=== PATIENT | male | born 1970 | race Caucasian/White ===

== ENCOUNTER 2019-05-26 16:26 | Emergency (ER) | payer BC, SELFPAY ==
[2019-05-26 16:34] VITALS: BP 148/98; PULSE 89; RESP 14; TEMP 36.7; O2SAT 97; BMI 37.4
--- NOTE | 2019-05-26 17:04 | XR_ITS ---
WS: [id number] PORTABLE CHEST HISTORY: cough and sob COMPARISON: 11/14/2013 Mild emphysema. There is mild thickening of the interstitium throughout the LEFT lung. New since the prior study. No pleural effusion or pneumothorax. Cardiac size: Normal. Mediastinum/Aorta: Normal mediastinum. No osseous abnormality seen. XR/XR chest 1V portable [id number] IMPRESSION: Mild pneumonitis LEFT lung superimposed on emphysema.
--- NOTE | 2019-05-26 17:08 | ED_ITS ---
Documented by User: Leonardo Bates DO 05/26/19 17:14 HPI - SOB/Dyspnea General: Chief Complaint: Shortness of Breath/Dyspnea Stated Complaint: SOB/COUGH Time Seen by Provider: 05/26/19 16:56 History of Present Illness: HPI Narrative: Patient complains of shortness of breath with a cough that is productive of sputum. He also complains of burning type chest pain along with the cough. She complains of sore throat. He denies any fever. 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 MD elicited complaint: shortness of breath, cough, pain with inspiration and chest pain Pertinent past history: diabetes Onset (ago): hour(s) Timing: constant Severity: severe Exacerbating factors: movement, coughing and inspiration Relieving factors: nothing Known history of: diabetes Associated symptoms: Reports cough, myalgias, nausea and other (dysuria) Treatment prior to arrival: none Review of Systems General: Reports: 10 or more systems reviewed and unremarkable except in HPI and below Const: Reports: body aches, fatigue and malaise ENMT: Reports: throat pain Resp: Reports: shortness of breath, productive cough and pain on inspiration GI: Reports: nausea : Reports: painful urination PFS ED PFSH: Social History Smoking and tobacco status: current every day smoker Physical Exam Const: COMMON NORMALS: oriented x3 and alert GENERAL APPEARANCE: cooperative and well developed HENMT: COMMON NORMALS: normocephalic and head/scalp atraumatic HEAD & SCALP: normocephalic and atraumatic Neck/C-Spine: COMMON NORMALS: full ROM, no lymphadenopathy, supple, no meningeal signs and no JVD Resp: COMMON NORMALS: normal respiratory effort, no retractions, no use of accessory muscles and clear to auscultation bilaterally EFFORT & INSPECTION: Yes able to speak in complete sentences AUSCULTATION: clear to auscultation bilaterally Cardio: COMMON NORMALS: no JVD, regular rate and regular rhythm RATE: regular rate RHYTHM: regular rhythm GI: COMMON NORMALS: normal to inspection, nondistended, normoactive bowel sounds Extremity: COMMON NORMALS: normal to inspection, full ROM, normal capillary refill and no pedal edema Neuro: COMMON NORMALS: oriented x3 SENSORIUM/ORIENTATION: Yes alert MENINGEAL SIGNS: Yes no meningeal signs Skin: COMMON NORMALS: no rashes or lesions noted, skin turgor normal, no jaundice and no mottling GENERAL SKIN EXAM: no rashes or lesions noted and turgor normal Course Vital Signs: Vital signs: Vital Signs Temperature 98.1 F 05/26/19 16:34 Pulse Rate 89 05/26/19 16:34 Respiratory Rate 14 05/26/19 16:34 Blood Pressure 148/98 05/26/19 16:34 Pulse Oximetry 97 05/26/19 16:34 MDM - SOB/Dyspnea Lab Data: Labs: Lab Results 05/26/19 05/26/19 05/26/19 Range/Units 17:07 17:20 17:20 WBC 9.6 (4.0-10.0) 10^3/ uL RBC 5.24 (4.1-5.3) 10^6/u L Hgb 16.1 (11.7-16.6) g/dL Hct 49.6 (42.0-52.0) % MCV 94.7 H (80-94) fL MCH 30.7 (28.0-34.0) pg MCHC 32.5 (30.0-36.0) g/dL RDW 12.6 (12.1-15.1) % Plt Count 202 (130-400) 10^3/c mm MPV 11.3 H (7.4-10.4) fL Neut % (Auto) 51.1 % Lymph % (Auto) 35.8 % [place] % (Auto) 7.9 % Eos % (Auto) 4.2 % Baso % (Auto) 0.6 % Neut # (Auto) 4.9 (1.8-7.7) 10^3/u L Lymph # (Auto) 3.5 (0.8-4.8) 10^3/u L [place] # (Auto) 0.8 (0.2-0.9) 10^3/u L Eos # (Auto) 0.4 (0.0-0.8) 10^3/u L Baso # (Auto) 0.1 (0.0-0.1) 10^3/u L Nucleated RBC % (a uto) 0 % Nucleated RBCs # 0.0 /100WBC Sodium 134 L (136-145) mmol/L Potassium 3.8 (3.5-5.1) mmol/L Chloride 98 (98-107) mmol/L Carbon Dioxide 24 (22-29) mmol/L Anion Gap 15.8 (5-19) BUN 6 (6-20) mg/dL Creatinine 0.7 (0.7-1.2) mg/dL GFR Calculation 119.9 (90-130) mL/min Glucose 155 H (65-115) mg/dL Calculated Osmolal ity 277 L (285-295) mOsm/k g Calcium 9.4 (8.5-10.5) mg/dL Total Bilirubin 0.5 (0.15-1.2) mg/dL AST 86 H (0-40) U/L ALT 62 H (0-41) U/L Alkaline Phosphata se 126 (40-130) IU/L Total Protein 7.8 (6.6-8.7) g/dL Albumin 4.0 (3.5-5.2) g/dL Globulin 3.8 (1.3-4.6) g/dL Urine Color Yellow (Yellow) Urine Appearance Clear (CLEAR) Urine pH 5 (5-7) Ur Specific Gravit y 1.010 (1.005-1.030) Urine Protein Neg (Negative) Urine Glucose (UA) Norm (Normal) Urine Ketones Negative (Negative) Urine Blood Neg (Negative) Urine Nitrate Negative (Negative) Urine Bilirubin Neg (NEGATIVE) Urine Urobilinogen Norm (Negative) mg/dL Ur Leukocyte Selin ase Negative (Negative) Influenza Type A A g (Negative) Influenza Type B A g (Negative) 05/26/19 Range/Units 18:27 WBC (4.0-10.0) 10^3/ uL RBC (4.1-5.3) 10^6/u L Hgb (11.7-16.6) g/dL Hct (42.0-52.0) % MCV (80-94) fL MCH (28.0-34.0) pg MCHC (30.0-36.0) g/dL RDW (12.1-15.1) % Plt Count (130-400) 10^3/c mm MPV (7.4-10.4) fL Neut % (Auto) % Lymph % (Auto) % [place] % (Auto) % Eos % (Auto) % Baso % (Auto) % Neut # (Auto) (1.8-7.7) 10^3/u L Lymph # (Auto) (0.8-4.8) 10^3/u L [place] # (Auto) (0.2-0.9) 10^3/u L Eos # (Auto) (0.0-0.8) 10^3/u L Baso # (Auto) (0.0-0.1) 10^3/u L Nucleated RBC % (a uto) % Nucleated RBCs # /100WBC Sodium (136-145) mmol/L Potassium (3.5-5.1) mmol/L Chloride (98-107) mmol/L Carbon Dioxide (22-29) mmol/L Anion Gap (5-19) BUN (6-20) mg/dL Creatinine (0.7-1.2) mg/dL GFR Calculation (90-130) mL/min Glucose (65-115) mg/dL Calculated Osmolal ity (285-295) mOsm/k g Calcium (8.5-10.5) mg/dL Total Bilirubin (0.15-1.2) mg/dL AST (0-40) U/L ALT (0-41) U/L Alkaline Phosphata se (40-130) IU/L Total Protein (6.6-8.7) g/dL Albumin (3.5-5.2) g/dL Globulin (1.3-4.6) g/dL Urine Color (Yellow) Urine Appearance (CLEAR) Urine pH (5-7) Ur Specific Gravit y (1.005-1.030) Urine Protein (Negative) Urine Glucose (UA) (Normal) Urine Ketones (Negative) Urine Blood (Negative) Urine Nitrate (Negative) Urine Bilirubin (NEGATIVE) Urine Urobilinogen (Negative) mg/dL Ur Leukocyte Selin ase (Negative) Influenza Type A A g Negative (Negative) Influenza Type B A g Negative (Negative) Discharge Plan Discharge Patient Disposition: Home, Self-Care Clinical Impression: Bronchitis Condition: Stable Prescriptions: New doxycycline hyclate 100 mg capsule 100 mg PO BID 7 Days Qty: 14 RF: 0 prednisone 50 mg tablet 50 mg PO DAILY Qty: 5 RF: 0 No Action metformin 1,000 mg tablet 2,000 mg PO BID RF: 0 Claritin 10 mg tablet 10 mg PO DAILY RF: 0 amoxicillin-pot clavulanate 875-125 mg tablet 1 tab PO DAILY RF: 0 Protonix See Rx Instructions .ROUTE .COMPLEX RF: 0 Zyrtec See Rx Instructions .ROUTE .COMPLEX RF: 0 lisinopril See Rx Instructions .ROUTE .COMPLEX RF: 0 testosterone undecanoate See Rx Instructions .ROUTE .COMPLEX RF: 0 Discharge Orders: Discharge Order (Routine); Ordered 05/26/19 Ordered By: Cathryn Lucia Referrals: Amari Rosales MD [Primary Care Provider] - 4-7 days Discharge Diet: Advance as tolerated Discharge Activity: Resume usual activity Patient Instructions: Acute Bronchitis (ED) Stand Alone Forms: Work/School Release Coding Level of Care Code 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 Documented by User: Cathryn Lucia MD 05/26/19 19:52 HPI - SOB/Dyspnea General: Chief Complaint: Shortness of Breath/Dyspnea Stated Complaint: SOB/COUGH Time Seen by Provider: 05/26/19 16:56 PFSH ED PFSH: Social History Smoking and tobacco status: current every day smoker Course Vital Signs: Vital signs: Vital Signs Temperature 98.1 F 05/26/19 16:34 Pulse Rate 89 05/26/19 16:34 Respiratory Rate 14 05/26/19 16:34 Blood Pressure 148/98 05/26/19 16:34 Pulse Oximetry 97 05/26/19 16:34 MDM - SOB/Dyspnea MDM Narrative: Medical decision making narrative: Lionel presents here with cough and congestion likely bronchitis. Patient has no signs of large pneumonia. Will test for coronavirus and he is to self quarantine. Will place on doxycycline. Patient is to return if worsening. He understands and agrees the plan. He is on no distress here. Lab Data: Labs: Lab Results 05/26/19 05/26/19 05/26/19 Range/Units 17:07 17:20 17:20 WBC 9.6 (4.0-10.0) 10^3/ uL RBC 5.24 (4.1-5.3) 10^6/u L Hgb 16.1 (11.7-16.6) g/dL Hct 49.6 (42.0-52.0) % MCV 94.7 H (80-94) fL MCH 30.7 (28.0-34.0) pg MCHC 32.5 (30.0-36.0) g/dL RDW 12.6 (12.1-15.1) % Plt Count 202 (130-400) 10^3/c mm MPV 11.3 H (7.4-10.4) fL Neut % (Auto) 51.1 % Lymph % (Auto) 35.8 % [place] % (Auto) 7.9 % Eos % (Auto) 4.2 % Baso % (Auto) 0.6 % Neut # (Auto) 4.9 (1.8-7.7) 10^3/u L Lymph # (Auto) 3.5 (0.8-4.8) 10^3/u L [place] # (Auto) 0.8 (0.2-0.9) 10^3/u L Eos # (Auto) 0.4 (0.0-0.8) 10^3/u L Baso # (Auto) 0.1 (0.0-0.1) 10^3/u L Nucleated RBC % (a uto) 0 % Nucleated RBCs # 0.0 /100WBC Sodium 134 L (136-145) mmol/L Potassium 3.8 (3.5-5.1) mmol/L Chloride 98 (98-107) mmol/L Carbon Dioxide 24 (22-29) mmol/L Anion Gap 15.8 (5-19) BUN 6 (6-20) mg/dL Creatinine 0.7 (0.7-1.2) mg/dL GFR Calculation 119.9 (90-130) mL/min Glucose 155 H (65-115) mg/dL Calculated Osmolal ity 277 L (285-295) mOsm/k g Calcium 9.4 (8.5-10.5) mg/dL Total Bilirubin 0.5 (0.15-1.2) mg/dL AST 86 H (0-40) U/L ALT 62 H (0-41) U/L Alkaline Phosphata se 126 (40-130) IU/L Total Protein 7.8 (6.6-8.7) g/dL Albumin 4.0 (3.5-5.2) g/dL Globulin 3.8 (1.3-4.6) g/dL Urine Color Yellow (Yellow) Urine Appearance Clear (CLEAR) Urine pH 5 (5-7) Ur Specific Gravit y 1.010 (1.005-1.030) Urine Protein Neg (Negative) Urine Glucose (UA) Norm (Normal) Urine Ketones Negative (Negative) Urine Blood Neg (Negative) Urine Nitrate Negative (Negative) Urine Bilirubin Neg (NEGATIVE) Urine Urobilinogen Norm (Negative) mg/dL Ur Leukocyte Selin ase Negative (Negative) Influenza Type A A g (Negative) Influenza Type B A g (Negative) 05/26/19 Range/Units 18:27 WBC (4.0-10.0) 10^3/ uL RBC (4.1-5.3) 10^6/u L Hgb (11.7-16.6) g/dL Hct (42.0-52.0) % MCV (80-94) fL MCH (28.0-34.0) pg MCHC (30.0-36.0) g/dL RDW (12.1-15.1) % Plt Count (130-400) 10^3/c mm MPV (7.4-10.4) fL Neut % (Auto) % Lymph % (Auto) % [place] % (Auto) % Eos % (Auto) % Baso % (Auto) % Neut # (Auto) (1.8-7.7) 10^3/u L Lymph # (Auto) (0.8-4.8) 10^3/u L [place] # (Auto) (0.2-0.9) 10^3/u L Eos # (Auto) (0.0-0.8) 10^3/u L Baso # (Auto) (0.0-0.1) 10^3/u L Nucleated RBC % (a uto) % Nucleated RBCs # /100WBC Sodium (136-145) mmol/L Potassium (3.5-5.1) mmol/L Chloride (98-107) mmol/L Carbon Dioxide (22-29) mmol/L Anion Gap (5-19) BUN (6-20) mg/dL Creatinine (0.7-1.2) mg/dL GFR Calculation (90-130) mL/min Glucose (65-115) mg/dL Calculated Osmolal ity (285-295) mOsm/k g Calcium (8.5-10.5) mg/dL Total Bilirubin (0.15-1.2) mg/dL AST (0-40) U/L ALT (0-41) U/L Alkaline Phosphata se (40-130) IU/L Total Protein (6.6-8.7) g/dL Albumin (3.5-5.2) g/dL Globulin (1.3-4.6) g/dL Urine Color (Yellow) Urine Appearance (CLEAR) Urine pH (5-7) Ur Specific Gravit y (1.005-1.030) Urine Protein (Negative) Urine Glucose (UA) (Normal) Urine Ketones (Negative) Urine Blood (Negative) Urine Nitrate (Negative) Urine Bilirubin (NEGATIVE) Urine Urobilinogen (Negative) mg/dL Ur Leukocyte Selin ase (Negative) Influenza Type A A g Negative (Negative) Influenza Type B A g Negative (Negative) Imaging Data^: CXR: Attestation: I personally reviewed and interpreted this imaging study as follows: My impression: no acute abnormaity Discharge Plan Discharge Patient Disposition: Home, Self-Care Clinical Impression: Bronchitis Condition: Stable Prescriptions: New doxycycline hyclate 100 mg capsule 100 mg PO BID 7 Days Qty: 14 RF: 0 prednisone 50 mg tablet 50 mg PO DAILY Qty: 5 RF: 0 No Action metformin 1,000 mg tablet 2,000 mg PO BID RF: 0 Claritin 10 mg tablet 10 mg PO DAILY RF: 0 amoxicillin-pot clavulanate 875-125 mg tablet 1 tab PO DAILY RF: 0 Protonix See Rx Instructions .ROUTE .COMPLEX RF: 0 Zyrtec See Rx Instructions .ROUTE .COMPLEX RF: 0 lisinopril See Rx Instructions .ROUTE .COMPLEX RF: 0 testosterone undecanoate See Rx Instructions .ROUTE .COMPLEX RF: 0 Discharge Orders: Discharge Order (Routine); Ordered 05/26/19 Ordered By: Cathryn Lucia Referrals: Amari Rosales MD [Primary Care Provider] - 4-7 days Discharge Diet: Advance as tolerated Discharge Activity: Resume usual activity Patient Instructions: Acute Bronchitis (ED) Stand Alone Forms: Work/School Release Coding Level of Care Code 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
[2019-05-26 17:31] LABS: Basophils # 0.1 10^3/uL (0.0-0.1); Basophils % 0.6 %; Eosinophils # 0.4 10^3/uL (0.0-0.8); Eosinophils % 4.2 %; Hematocrit 49.6 % (42.0-52.0); Hemoglobin 16.1 g/dL (11.7-16.6); Lymphocytes # 3.5 10^3/uL (0.8-4.8); Lymphocytes % 35.8 %; Mean Corpuscular HGB Conc 32.5 g/dL (30.0-36.0); Mean Corpuscular Hemoglobin 30.7 pg (28.0-34.0); Mean Corpuscular Volume 94.7 fL (80-94); Mean Platelet Volume 11.3 fL (7.4-10.4); Monocytes # 0.8 10^3/uL (0.2-0.9); Monocytes % 7.9 %; Neutrophils # 4.9 10^3/uL (1.8-7.7); Neutrophils % 51.1 %; Nucleated Red Blood Cells % 0 %; Platelet Count 202 10^3/cmm (130-400); Red Blood Count 5.24 10^6/uL (4.1-5.3); Red Cell Distribution Width 12.6 % (12.1-15.1); White Blood Count 9.6 10^3/uL (4.0-10.0)
[2019-05-26 17:33] LABS: Add Urine Microscopic? NO
[2019-05-26 17:37] LABS: Bilirubin Urine Neg (NEGATIVE); Blood Urine Neg (Negative); Glucose Urine UA Norm (Normal); Ketones Urine Negative (Negative); Leukocyte Esterase Urine Negative (Negative); Nitrate Urine Negative (Negative); Protein Urine Neg (Negative); Urine Appearance Clear (CLEAR); Urine Color Yellow (Yellow); Urobilinogen Urine Norm (Negative); pH Urine 5 (5-7)
[2019-05-26 17:51] LABS: Alanine Aminotransferase 62 U/L (0-41); Alkaline Phosphatase 126 IU/L (40-130); Anion Gap 15.8 (5-19); Aspartate Amino Transferase 86 U/L (0-40); Blood Urea Nitrogen 6 mg/dL (6-20); Calcium 9.4 mg/dL (8.5-10.5); Carbon Dioxide 24 mmol/L (22-29); Chloride 98 mmol/L (98-107); Globulin 3.8 g/dL (1.3-4.6); Glomerular Filtration Rate 119.9 mL/min (90-130); Glucose 155 mg/dL (65-115); Osmolality Calculated 277 mOsm/kg (285-295); Potassium 3.8 mmol/L (3.5-5.1); Sodium 134 mmol/L (136-145); Total Bilirubin 0.5 mg/dL (0.15-1.2); Total Protein 7.8 g/dL (6.6-8.7)
[2019-05-26 19:14] LABS: Influenza A by IFA Negative (Negative); Influenza B by IFA Negative (Negative)
[2019-05-26 19:54] VITALS: BP 131/89; PULSE 88; RESP 16; TEMP 37.1; O2SAT 97
--- NOTE | 2019-05-29 08:53 | PC.NURSE ---
Pt called and notified of negative COVID test.
== END 2019-05-26 20:03 | disposition home or self-care (01) ==
PROVIDERS: Family Medicine; Emergency Provider Emergency Medicine; Family Provider Family Medicine; PCP Family Medicine
DX: J40 Bronchitis, not specified as acute or chronic (principal); F17.210 Nicotine dependence, cigarettes, uncomplicated
CPT/HCPCS: 12345; 36415; 71045; 80053; 81003; 85025; 87040; 87635; 87804; 99282; 99283

== ENCOUNTER 2020-03-14 09:25 | Outpatient (CLI) | payer OTHER, SELFPAY ==
--- NOTE | 2020-03-14 09:31 | XR_ITS ---
WS: [id number] CERVICAL SPINE FLEXION EXTENSION TECHNIQUE: 3 views of the cervical spine: lateral neutral, flexion and extension views. CLINICAL INFORMATION: CERVICALGIA COMPARISON: None. FINDINGS: Straightening of the normal cervical lordosis. Normal prevertebral soft tissues. Disc space heights a nd vertebral body heights well-preserved. No instability on flexion extension. Posterior elements are normal. No other significant findings. XR/XR cervical spine fl/ex [id number] IMPRESSION: No instability on flexion-extension
--- NOTE | 2020-03-14 09:31 | XR_ITS ---
WS: [id number] LUMBAR SPINE FLEXION AND EXTENSION TECHNIQUE: 3 views of the lumbar spine: Lateral neutral, flexion, and extension views. CLINICAL INFORMATION: LOW BACK PAIN COMPARISON: None. FINDINGS: Normal lumbar alignment on the neutral view. No instability on the flexion and extension views. Moderate facet arthropathy L5-S1. Vascular calcifi cation. XR/XR lumbar spine f/e only [id number] IMPRESSION: No instability on flexion-extension.
--- NOTE | 2020-03-14 09:32 | MR_ITS ---
WS: [id number] MRI CERVICAL SPINE NONCONTRAST TECHNIQUE: Sagittal T1, T2 and STIR imaging. Axial T2, gradient, and fiesta imaging. CLINICAL INFORMATION: CERVICALGIA COMPARISON: None. FINDINGS: Straightening of the normal cervical lordosis. Cord signal is normal. No high-grade central canal felicity nosis. C2-C3: Normal. C3-C4: No significant disc bulging. Mild left foraminal narrowing. Mild facet arthropathy. Mild edema in the left C3-C4 facet.Spinal canal is patent. C4-C5: Mild disc bulging with slight effacement of the ventral thecal sac. Mild central canal stenosi s. Mild left greater than right bony foraminal narrowing. Mild facet arthropathy. C5-C6: Disc osteophyte complex with slight contact of the right ventral cervical cord. Mild central c anal stenosis. Mild bilateral bony foraminal narrowing. Mild facet arthropathy. C6-C7: Disc osteophytic ridging. Mild left and no significant right foraminal narrowing. Spinal canal is patent. C7-T1: Normal Visualized upper thoracic cord is normal. Visualized brain stem structures: Normal. Prevertebral soft tissues: Normal. MR/MR cervical spin wo con* [id number] IMPRESSION: 1. Straightening of the normal cervical lordosis. Cord signal is normal. 2. Mild central canal stenosis C4-C5 and C5-C6 with small disc osteophyte prot rusions and slight contact of the right ventral cervical cord. 3. Mild bony foraminal narrowing worse at left C4-C5 and right C5-C6.
--- NOTE | 2020-03-14 09:32 | MR_ITS ---
WS: [id number] MRI LUMBAR SPINE NONCONTRAST TECHNIQUE: Sagittal T1, T2 and STIR imaging. Axial T1 and T2 imaging. CLINICAL INFORMATION: LOW BACK PAIN COMPARISON: None. FINDINGS: Mild lumbar curve. No acute compression. No high-grade central canal stenosis. L1-L2: Normal. L2-L3: No significant disc bulging. Mild facet arthropathy. Spinal canal and foramen are patent. L3-L4: No significant disc bulging. Mild facet arthropathy. Mild right greater than left foraminal na rrowing. Mild facet arthropathy. L4-L5: Mild annular bulging with slight effacement of the ventral thecal sac. Mild bilateral foramina l narrowing. Mild facet arthropathy. L5-S1: No significant disc bulging. Spinal canal and foramen are patent. Mild facet arthropathy. Visualized pelvic bony structures: Normal. Paravertebral soft tissues: Normal. Small central protrusion T6-7. MR/MR lumbar spine wo con* [id number] IMPRESSION: 1. Mild lumbar curve. No acute compression. No high-grade central canal stenos is. 2. Mild annular bulging L4-5 with slight effacement of ventral thecal sac. Mil d bilateral L4-5 foraminal narrowing. 3. Mild bilateral L3-4 foraminal narrowing. 4. Mild facet arthropathy L3-L5. 5. Small central protrusion thoracic spine at T6-7.
== END 2020-03-14 09:26 | disposition home or self-care (01) ==
LOC: RADWPI 09:31
PROVIDERS: PCP Family Medicine; Visit Provider Nurse Practitioner
DX: M51.24 Other intervertebral disc displacement, thoracic region (principal); M47.816 Spondylosis without myelopathy or radiculopathy, lumbar region; M48.02 Spinal stenosis, cervical region; M25.78 Osteophyte, vertebrae
CPT/HCPCS: 72040; 72120; 72141; 72148

== ENCOUNTER → 2020-06-15 10:35 | Outpatient (BNVA) | payer OTHER, SELFPAY | PROVIDERS: PCP Family Medicine; Visit Provider Orthopaedic Surgery | DX: Z01.812 Encounter for preprocedural laboratory examination (principal); Z20.822 Contact with and (suspected) exposure to COVID-19 | CPT/HCPCS: 87635 ==

== ENCOUNTER 2020-06-22 09:30 | Outpatient (CLI) | payer OTHER, SELFPAY | END 2020-06-22 09:31 | disposition home or self-care (01) | LOC: LAB 04-27 15:21 | PROVIDERS: PCP Family Medicine; Visit Provider Orthopaedic Surgery | DX: Z01.812 Encounter for preprocedural laboratory examination (principal); Z20.822 Contact with and (suspected) exposure to COVID-19 | CPT/HCPCS: 87635 ==

== ENCOUNTER 2020-07-28 20:00 | Outpatient (CLI) | payer OTHER, SELFPAY | END 2020-07-28 20:01 | disposition home or self-care (01) | LOC: SLEEP 07-29 08:21 | PROVIDERS: PCP Family Medicine; Visit Provider Family Medicine | DX: G47.33 Obstructive sleep apnea (adult) (pediatric) (principal) | CPT/HCPCS: 95810 ==

== ENCOUNTER 2020-09-12 08:27 | Emergency (ER) | payer OTHER, SELFPAY ==
[2020-09-12] VITALS (7 sets, daily range): BP systolic 115–136; BP diastolic 69–72; PULSE 80–92; RESP 18–24; TEMP 37.3–37.7; O2SAT 87–95; BMI 38.3
--- NOTE | 2020-09-12 09:00 | XR_ITS ---
WS: [id number] Portable AP upright chest, 09/12/2020 Clinical Data: COVDI/cough/dyspnea Comparison: Portable chest, 05/26/2019. Findings: No nodules, masses or effusions are seen. The heart is normal. The pulmonary vascularity is not increased. No pneumothorax is seen. There is minimal peripheral opacity in the left lower lobe which could indicate mild pneumonia. XR/XR chest 1V portable [id number] Impression: Minimal peripheral pulmonary opacity in left lower lobe.
--- NOTE | 2020-09-12 09:28 | W.ED.COVID ---
HPI - COVID General: Chief Complaint: Infusion: Covid MCA Stated Complaint: Headache, Muscle Aches,prior fever, Time Seen by Provider: 09/12/20 08:34 Triage information: Has fever, cough or shortness of breath. Exposure to COVID + person last 14 days History of Present Illness: MD complaint: has COVID symptoms Prior covid testing: no COVID 19 common symptoms: positive fever(s), chills, cough, non-productive cough, dyspnea, fatigue, body aches, headache(s), loss of sense of smell and/or taste, nasal congestion, nausea and diarrhea COVID 19 other sytmptoms: positive chest pain; negative requiring oxygen Onset (ago): day(s) (7) Severity: mild Pertinent comorbid conditions: diabetes and hypertension COVID Results: SARS-CoV-2 Antigen (Rapid) Positive (Negative) H 09/12/20 09:22 09/12/20 SARS-CoV-2 RNA (RT-PCR) See comment 05/26/19 18:27 05/26/19 Nasal/Oral Coronavirus 2019 PCR Not detected 06/22/20 11:23 06/22/20 Review of Systems Const: Reports: fever(s), chills, body aches and fatigue ENMT: Reports: nasal congestion Card: Reports: chest pain Resp: Reports: dyspnea and non-productive cough GI: Reports: nausea and diarrhea : Denies: flank pain, dysuria, urinary frequency or urinary urgency Skin/Breast: Denies: rash or pruritus Neuro: Reports: headache(s) PFS ED PFSH: Medical History Diabetes Hypertension Social History History of recent travel: Yes Physical Exam Const: COMMON NORMALS: no acute distress GENERAL APPEARANCE: cooperative and comfortable ORIENTATION/CONSCIOUSNESS: Yes awake, Yes oriented to person, Yes oriented to place and Yes oriented to time HENMT: COMMON NORMALS: normocephalic, atraumatic and hearing grossly normal bilaterally HEAD & SCALP: normocephalic and atraumatic Neck/C-Spine: COMMON NORMALS: no JVD Resp: COMMON NORMALS: normal respiratory effort, No retractions, No use of accessory muscles and clear to auscultation bilaterally AUSCULTATION: clear to auscultation bilaterally Cardio: COMMON NORMALS: no JVD, regular rate, regular rhythm and No murmurs present (Cardio) RATE: regular rate RHYTHM: regular rhythm GI: COMMON NORMALS: Soft to palpation and No hepatosplenomegaly present AUSCULTATION: Yes normoactive bowel sounds PALPATION: Yes Soft to palpation, No Tenderness to palpation present (GI), No Guarding due to palpation present (GI) and Yes No hepatosplenomegaly present Extremity: COMMON NORMALS: normal to inspection, capillary refill normal, no clubbing, cyanosis or edema, no calf tenderness and no pedal edema Neuro: SENSORIUM/ORIENTATION: Yes oriented to person, Yes oriented to place and Yes oriented to time Skin: COMMON NORMALS: no rashes or lesions noted GENERAL SKIN EXAM: no rashes or lesions noted Course Vital Signs: Vital signs: Vital Signs Temperature 99.2 F 09/12/20 14:16 Pulse Rate 86 09/12/20 14:16 Respiratory Rate 24 H 09/12/20 14:16 Blood Pressure 136/69 09/12/20 14:16 Pulse Oximetry 93 09/12/20 14:16 MDM - COVID Lab Data: Labs: Lab Results 09/12/20 Range/Units 09:22 SARS-CoV-2 Ag (Rap id) Positive H (Negative) COVID Results: SARS-CoV-2 Antigen (Rapid) Positive (Negative) H 09/12/20 09:22 09/12/20 SARS-CoV-2 RNA (RT-PCR) See comment 05/26/19 18:27 05/26/19 Nasal/Oral Coronavirus 2019 PCR Not detected 06/22/20 11:23 06/22/20 Monoclonal Antibody Treatments Inclusion/Exclusion Criteria weight >/= 40 kg and + direct Sars-Cov-2 test less than 7-10 days ago BMI >/= 35 Patient education patient/family/caregiver received/reviewed fact sheet, Emergency Use Authorization/unapproved drug status discussed with patient/family/caregiver, alternatives to this treatment discussed with patient/family/caregiver, risks and benefits of medication reviewed with patient/family/caregiver, patient/family/caregiver given opportunity for questions, which were answered and patient consents to receiving Monoclonal Antibody Treatment Plan for treatment Meets criteria for Monoclonal Antibody infusion Ordering Monoclonal Antibody infusion for today Other information Initially there is some concern whether or not patient would qualify. He had a few lower O2 sats however due to home oxygen evaluation and he passed so we will go ahead and transfuse monoclonal antibodies discussed risk benefits alternatives with the patient he wishes to proceed Discharge Plan Discharge Patient Disposition: Home Clinical Impression: COVID-19 Condition: Stable Prescriptions: No Action hydroxyzine HCl 25 mg tablet 25 mg PO .qhs Qty: 60 RF: 2 mupirocin 2 % ointment 1 applic topical BID Qty: 22 RF: 1 (DME) Bone Growth Stimulator [id number] See Rx Instructions .Route .MEDSUPPLY Qty: 1 RF: 0 prednisone 50 mg tablet 50 mg PO DAILY PRN (Reason: Poisoning Signs And Symptoms) RF: 0 metformin 1,000 mg tablet 1,000 mg PO BID RF: 0 loratadine [Claritin] 10 mg tablet 10 mg PO DAILY RF: 0 Protonix See Rx Instructions .ROUTE .COMPLEX RF: 0 Zyrtec See Rx Instructions .ROUTE .COMPLEX RF: 0 lisinopril See Rx Instructions .ROUTE .COMPLEX RF: 0 testosterone undecanoate See Rx Instructions .ROUTE .COMPLEX RF: 0 Discharge Orders: Discharge ED (Routine); Ordered 09/12/20 Ordered By: Surjit Ulloa Referrals: Amari Rosales MD [Primary Care Provider] - Discharge Diet: Usual diet Discharge Activity: Increase activity as tolerated Patient Instructions: Opioid Safety Activity Restrictions/Additional Instructions: Monitor home oxygen saturations. 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
[2020-09-12 10:18] LABS: SARS Covid-2 Antigen Positive (Negative)
== END 2020-09-12 14:18 | disposition home or self-care (01) ==
PROVIDERS: Emergency Provider Family Medicine; PCP Family Medicine
DX: U07.1 COVID-19 (principal); Z79.84 Long term (current) use of oral hypoglycemic drugs; E11.9 Type 2 diabetes mellitus without complications; I10 Essential (primary) hypertension
CPT/HCPCS: 71045; 87426; 96365; 99284

== ENCOUNTER 2020-10-09 17:20 | Inpatient (IN) | payer OTHER, SELFPAY ==
--- NOTE | 2020-10-09 17:37 | XRR_ITS ---
PROCEDURE INFORMATION: Exam: XR Chest Exam date and time: 10/09/2020 5:37 PM Age: 50 years old Clinical indication: Cough and fever; Patient HX: Cough with fever. Covid + 3 weeks ago. ; Additional info: Fever, cough, covid+ 09/12/20 TECHNIQUE: Imaging protocol: XR of the chest. Views: 1 view. COMPARISON: CR XR chest 1V portable [id number] 09/12/2020 9:05 AM FINDINGS: Lungs: Mild ground-glass opacity suspected in the central and lower left lung. The right lung is clear. Pleural spaces: Unremarkable. No pleural effusion. No pneumothorax. Heart/Mediastinum: Unremarkable. No cardiomegaly. Bones/joints: Unremarkable. XR/XR chest 1V portable [id number] IMPRESSION: 1. Suspected ground-glass opacities in the left lung could represent pneumonia.
[2020-10-09 18:04] VITALS: BP 146/73; PULSE 104; RESP 20; TEMP 39.2; O2SAT 89; BMI 38.3
--- NOTE | 2020-10-09 18:34 | ED_ITS ---
HPI - COVID General: Chief Complaint: COVID symptoms Stated Complaint: FEVER,COUGH,H/A:COVID(+)3 WKS AGO,HAS HAD INFUSION Time Seen by Provider: 10/09/20 18:13 Triage information: Has fever, cough or shortness of breath . No known COVID + exposure last 14 days History of Present Illness: HPI Narrative: 50-year-old male evidently diagnosed with COVID-19 3 weeks ago. He got a monoclonal antibody infusion, and was feeling better 2 days later. He notes that he got sick again 5 days ago. At that point, he had cough with sputum production, fever, and some shortness of breath. He said a few episodes of pleuritic type chest pain, but none now. He reports that he has not taken anything for his fever today. He relates getting sick again to working out in the hot sun for 3 days at the beginning of this past week. MD complaint: other Prior covid testing: yes, results known COVID 19 common symptoms: positive fever(s), chills, cough, productive cough, dyspnea, fatigue, body aches, headache(s) and nasal congestion; negative throat pain, nausea, vomiting or diarrhea COVID 19 other sytmptoms: positive pleuritic pain; negative requiring oxygen or respiratory distress Onset (ago): day(s) Severity: moderate Treatment prior to arrival: none COVID Results: SARS-CoV-2 Antigen (Rapid) Positive (Negative) H 09/12/20 09:22 09/12/20 SARS-CoV-2 RNA (RT-PCR) See comment 05/26/19 18:27 05/26/19 Nasal/Oral Coronavirus 2019 PCR Not detected 06/22/20 11:23 06/22/20 Review of Systems Const: Reports: fever(s), chills, body aches and fatigue ENMT: Reports: nasal congestion; Denies: throat pain Resp: Reports: dyspnea and productive cough GI: Denies: nausea, vomiting or diarrhea Neuro: Reports: headache(s) PFSH ED PFSH: Medical History Diabetes Hypertension Social History History of recent travel: Yes Physical Exam Const: COMMON NORMALS: no acute distress GENERAL APPEARANCE: cooperative and ill appearing NUTRITIONAL APPEARANCE: obese HENMT: COMMON NORMALS: normocephalic HEAD & SCALP: normocephalic Eye: COMMON NORMALS: Equal, round and reactive pupils present and EOMs intact bilaterally PUPIL: Yes Equal, round and reactive pupils present Chest: COMMONS NORMALS: normal inspection of the chest Resp: COMMON NORMALS: normal respiratory effort, No retractions and clear to auscultation bilaterally AUSCULTATION: clear to auscultation bilaterally Cardio: COMMON NORMALS: regular rhythm RATE: tachycardic RHYTHM: regular rhythm GI: COMMON NORMALS: Normal to inspection, nondistended, normoactive bowel sounds present, Soft to palpation and non-tender PALPATION: Yes Soft to palpation Extremity: GENERAL: Yes edema (1+ bilateral) Course Vital Signs: Vital signs: Vital Signs Temperature 101 F H 10/09/20 20:33 Pulse Rate 94 10/09/20 22:16 Respiratory Rate 24 H 10/09/20 22:16 Blood Pressure 130/83 10/09/20 22:16 Pulse Oximetry 89 L 10/09/20 21:17 MDM - COVID MDM Narrative: Medical decision making narrative: 50-year-old male who tested positive for COVID-19 on 09/12. He felt well for a while, but has had several days of fever, and increasing shortness of breath with some pleuritic chest discomfort. His white blood cell count is 11. His D-dimer is significantly high. Chest x-ray shows consolidation likely in the left lower lobe. CTA shows multilobar groundglass opacities consistent with COVID-19 pneumonia, as well as a dense consolidation in the left lower lobe which is likely a superimposed bacterial pneumonia. He is requiring some oxygen now. He will be admitted for IV antibiotics and pulmonary toilet. He is of course off quarantine at this point. Lab Data: Labs: Lab Results 10/09/20 10/09/20 10/09/20 Range/Units 18:37 18:37 18:37 WBC 10.9 H (4.0-10.0) 10^3/ uL RBC 4.63 (4.1-5.3) 10^6/u L Hgb 13.9 (11.7-16.6) g/dL Hct 41.2 L (42.0-52.0) % MCV 89.0 (80-94) fl MCH 30.0 (28.0-34.0) pg MCHC 33.7 (30.0-36.0) g/dL RDW 14.0 (12.1-15.1) % Plt Count 213 (130-400) 10^3/c mm MPV 11.0 H (7.4-10.4) fL Neut % (Auto) 65.6 % Lymph % (Auto) 20.5 % Laporte % (Auto) 9.4 % Eos % (Auto) 2.0 % Baso % (Auto) 0.5 % Neut # (Auto) 7.14 (1.8-7.7) 10^3/u L Lymph # (Auto) 2.2 (0.8-4.8) 10^3/u L Laporte # (Auto) 1.0 H (0.2-0.9) 10^3/u L Eos # (Auto) 0.2 (0.0-0.8) 10^3/u L Baso # (Auto) 0.1 (0.0-0.1) 10^3/u L Nucleated RBC % (a uto) 0 % Nucleated RBCs # 0.0 /100WBC D-Dimer (0-0.59) ug/mIFE U Sodium 134 L (136-145) mmol/L Potassium 3.3 L (3.5-5.1) mmol/L Chloride 95 L (98-107) mmol/L Carbon Dioxide 25 (22-29) mmol/L Anion Gap 17.3 (5-19) BUN 10 (6-20) mg/dL Creatinine 0.9 (0.7-1.2) mg/dL GFR Calculation 89.0 L (90-130) mL/min Glucose 112 (65-115) mg/dL Calculated Osmolal ity 278 L (285-295) mOsm/k g Lactate 1.5 (0.5-2.2) mmol/L Calcium 9.0 (8.5-10.5) mg/dL Total Bilirubin 0.3 (0.15-1.2) mg/dL AST 44 H (0-40) U/L ALT 26 (0-41) U/L Alkaline Phosphata se 179 H (40-130) IU/L C-Reactive Protein 318.3 H (0.0-4.9) mg/L Total Protein 7.8 (6.6-8.7) g/dL Albumin 3.0 L (3.5-5.2) g/dL Globulin 4.8 H (1.3-4.6) g/dL Procalcitonin 0.95 H (0-0.5) ng/mL 10/09/20 Range/Units 18:37 WBC (4.0-10.0) 10^3/ uL RBC (4.1-5.3) 10^6/u L Hgb (11.7-16.6) g/dL Hct (42.0-52.0) % MCV (80-94) fl MCH (28.0-34.0) pg MCHC (30.0-36.0) g/dL RDW (12.1-15.1) % Plt Count (130-400) 10^3/c mm MPV (7.4-10.4) fL Neut % (Auto) % Lymph % (Auto) % Laporte % (Auto) % Eos % (Auto) % Baso % (Auto) % Neut # (Auto) (1.8-7.7) 10^3/u L Lymph # (Auto) (0.8-4.8) 10^3/u L Laporte # (Auto) (0.2-0.9) 10^3/u L Eos # (Auto) (0.0-0.8) 10^3/u L Baso # (Auto) (0.0-0.1) 10^3/u L Nucleated RBC % (a uto) % Nucleated RBCs # /100WBC D-Dimer 3.83 H (0-0.59) ug/mIFE U Sodium (136-145) mmol/L Potassium (3.5-5.1) mmol/L Chloride (98-107) mmol/L Carbon Dioxide (22-29) mmol/L Anion Gap (5-19) BUN (6-20) mg/dL Creatinine (0.7-1.2) mg/dL GFR Calculation (90-130) mL/min Glucose (65-115) mg/dL Calculated Osmolal ity (285-295) mOsm/k g Lactate (0.5-2.2) mmol/L Calcium (8.5-10.5) mg/dL Total Bilirubin (0.15-1.2) mg/dL AST (0-40) U/L ALT (0-41) U/L Alkaline Phosphata se (40-130) IU/L C-Reactive Protein (0.0-4.9) mg/L Total Protein (6.6-8.7) g/dL Albumin (3.5-5.2) g/dL Globulin (1.3-4.6) g/dL Procalcitonin (0-0.5) ng/mL COVID Results: SARS-CoV-2 Antigen (Rapid) Positive (Negative) H 09/12/20 09:22 09/12/20 SARS-CoV-2 RNA (RT-PCR) See comment 05/26/19 18:27 05/26/19 Nasal/Oral Coronavirus 2019 PCR Not detected 06/22/20 11:23 06/22/20 Discharge Plan Discharge Patient Disposition: Admitted As Inpatient Clinical Impression: Pneumonia Qualifiers: Pneumonia type: due to unspecified organism Laterality: left Lung location: lower lobe of lung Qualified Code(s): J18.9 - Pneumonia, unspecified organism Condition: Fair Coding Level of Care Code ED Snap Attacher for [facility] Fwd Exam Comprehensive
[2020-10-09] MEDS: acetaminophen 500 mg Tablet 1000 MG PO (18:43)
[2020-10-09 18:48] LABS: Basophils # 0.1 10^3/uL (0.0-0.1); Basophils % 0.5 %; Eosinophils # 0.2 10^3/uL (0.0-0.8); Hematocrit 41.2 % (42.0-52.0); Hemoglobin 13.9 g/dL (11.7-16.6); Lymphocytes # 2.2 10^3/uL (0.8-4.8); Lymphocytes % 20.5 %; Mean Corpuscular HGB Conc 33.7 g/dL (30.0-36.0); Monocytes % 9.4 %; Neutrophils # 7.14 10^3/uL (1.8-7.7); Neutrophils % 65.6 %; Nucleated Red Blood Cells % 0 %; Platelet Count 213 10^3/cmm (130-400); Red Blood Count 4.63 10^6/uL (4.1-5.3); White Blood Count 10.9 10^3/uL (4.0-10.0)
[2020-10-09 19:06] LABS: D Dimer 3.83 ug/mIFEU (0-0.59)
[2020-10-09 19:12] LABS: Lactate (Lactic Acid level) 1.5 mmol/L (0.5-2.2)
[2020-10-09 19:13] LABS: Alanine Aminotransferase 26 U/L (0-41); Alkaline Phosphatase 179 IU/L (40-130); Anion Gap 17.3 (5-19); Aspartate Amino Transferase 44 U/L (0-40); Blood Urea Nitrogen 10 mg/dL (6-20); C Reactive Protein 318.3 mg/L (0.0-4.9); Carbon Dioxide 25 mmol/L (22-29); Chloride 95 mmol/L (98-107); Globulin 4.8 g/dL (1.3-4.6); Glucose 112 mg/dL (65-115); Osmolality Calculated 278 mOsm/kg (285-295); Potassium 3.3 mmol/L (3.5-5.1); Sodium 134 mmol/L (136-145); Total Bilirubin 0.3 mg/dL (0.15-1.2); Total Protein 7.8 g/dL (6.6-8.7)
[2020-10-09 19:18] LABS: Procalcitonin 0.95 ng/mL (0-0.5)
[2020-10-09 19:59] VITALS: TEMP 39.3
[2020-10-09] MEDS: ketorolac 30 mg/mL INJ 15 MG IVP (20:26)
[2020-10-09 20:33] VITALS: BP 118/77; PULSE 97; RESP 25; TEMP 38.3; O2SAT 90
--- NOTE | 2020-10-09 20:48 | CTR_ITS ---
PROCEDURE INFORMATION: Exam: CTA Chest With Contrast Exam date and time: 10/09/2020 8:48 PM Age: 50 years old Clinical indication: Shortness of breath; Chest pressure; Patient HX: Chest pain/sob. TECHNIQUE: Imaging protocol: Computed tomographic angiography of the chest with contrast. 3D rendering (Not supervised by radiologist): MIP and/or 3D reconstructed images were created by the technologist. Radiation optimization: All CT scans at this facility use at least one of these dose optimization techniques: automated exposure control; mA and/or kV adjustment per patient size (includes targeted exams where dose is matched to clinical indication); or iterative reconstruction. Contrast material: OMNI 350; Contrast volume: 95 ml; Contrast route: INTRAVENOUS (IV); COMPARISON: CR (CHEST, ) 10/09/2020 6:33 PM RADIATION DOSE METRICS: Total DLP (mGy-cm): 1185.18 FINDINGS: Pulmonary arteries: Normal. No pulmonary emboli. Aorta: Unremarkable. No aortic aneurysm. No aortic dissection. Lungs: Patchy peripheral ground-glass opacities in both lungs. Dense consolidation and ground-glass opacities in the majority of the left lower lobe. Pleural spaces: Unremarkable. No pneumothorax. No pleural effusion. Heart: Small pericardial effusion. Lymph nodes: Prominent mediastinal and hilar lymph nodes are most likely reactive. Prominent perigastric lymph nodes are most likely reactive. Bones/joints: Unremarkable. No acute fracture. Soft tissues: Unremarkable. CT/CT angio chest PE protcl [id number] IMPRESSION: 1. No evidence for pulmonary embolus. 2. Multilobar ground-glass opacities, consistent with viral pneumonia. This pattern can be seen with COVID-19 pneumonia. 3. Dense consolidation in the left lower lobe could represent superimposed bacterial pneumonia. Radiation Dose CTDIVOL = (mGy): DLP = 1185.18 (mGy-cm)
[2020-10-09] MEDS: iohexol 350 mg/mL 100 mL Btl IV (21:01)
[2020-10-09 21:17] VITALS: PULSE 95; RESP 35; O2SAT 89
[2020-10-09 22:16] VITALS: BP 130/83; PULSE 94; RESP 24
[2020-10-09] MEDS: levofloxacin-dextrose 5 % 750 MG/150 ML PREMIX 100 MG IV (22:37)
[2020-10-10] VITALS (16 sets, daily range): BP systolic 99–144; BP diastolic 62–80; PULSE 72–96; RESP 16–30; TEMP 36.8–37.7; O2SAT 91–98
--- NOTE | 2020-10-10 02:14 | PM.HP ---
Providers/Chief Complaint Admitting Physician: Nusrat Gore MD Primary Care Provider: Amari Rosales MD Chief Complaint: FEVER,COUGH,H/A:COVID(+)3 WKS AGO,HAS HAD INFUSION History of Present Illness Lionel Knutson is a 50 year old male with a past medical history of diabetes mellitus, hypertension, severe sleep apnea diagnosed with COVID-19 pneumonia on September 12, 2020, received general antibody, started to feel better thereafter. However approximately 1 week ago he started to experience cough with sputum production, fever and shortness of breath. He also describes a pleuritic type chest pain on his left side which is currently improved. The ER he is needing supplemental O2 at 2 L/min. Was febrile to 102 Fahrenheit. D-dimer was elevated. CTA of the chest was performed which was negative for PE, however showed dense left lower lobe infiltrate in addition to faint groundglass opacities likely from his recent COVID-19 infection. He is being admitted for management pneumonia after recent acute viral illness. Review of Systems General: Reports: 10 or more systems reviewed and unremarkable except in HPI and below Const: Denies: fever(s), chills or body aches Eyes: Denies: change in vision, blurry vision or photophobia ENMT: Reports: hoarseness; Denies: throat pain, enlarged tonsils, odynophagia or nasal congestion Card: Denies: chest pain, palpitations, irregular heart rhythm, edema, swelling of feet/ankles, lightheadedness, pre-syncope, dyspnea on exertion or orthopnea Resp: Denies: dyspnea, productive cough, non-productive cough, wheezing, stridor, pain on inspiration, change in phlegm color, hemoptysis or chest congestion GI: Denies: abdominal pain, nausea, vomiting, hematemesis, coffee ground emesis, dysphagia, heartburn, diarrhea, constipation, GI cramping, change in stool character, hematochezia or melena : Denies: flank pain, dysuria, urinary frequency, urinary urgency, urinary hesitancy or hematuria Musc: Denies: neck pain, back pain, extremity pain, joint swelling, joint warmth or deformity Neuro: Denies: headache(s), numbness in extremities, weakness in extremities, sensory changes, difficulty walking, frequent falls, dizziness, vertigo, behavioral changes, Slurred speech present or seizure-like activity Psych: Denies: anxiety, depression, suicidal ideation or homicidal ideation Endo: Denies: polyuria, polydipsia, tired all the time, cold intolerance or hot flashes Isiah/Lymph: Denies: easy bruising or easy bleeding Medications/Allergies Home Medications Medication Instructions Recorded Confirmed Last Taken Type Protonix See Rx Instructions .ROUTE .COMPLEX 05/26/19 09/06/20 05/25/19 History Zyrtec See Rx Instructions .ROUTE .COMPLEX 05/26/19 09/06/20 05/25/19 History lisinopril See Rx Instructions .ROUTE .COMPLEX 05/26/19 09/06/20 05/24/19 History loratadine [Claritin] 10 mg PO DAILY 05/26/19 09/06/20 05/25/19 History metformin 1,000 mg PO BID 05/26/19 09/06/20 05/24/19 History testosterone undecanoate See Rx Instructions .ROUTE .COMPLEX 05/26/19 09/06/20 Unknown History Bone Growth Stimulator [id number] #1 ea 06/13/20 09/06/20 Unknown Rx prednisone 50 mg PO DAILY PRN 06/13/20 09/06/20 Unknown History hydroxyzine HCl 25 mg tablet 25 mg PO .qhs #60 tab 09/06/20 09/06/20 Unknown Rx mupirocin 2 % topical ointment 1 applic TOPICAL BID #22 g 09/06/20 09/06/20 Unknown Rx Allergies Allergy/AdvReac Type Severity Reaction Status Date / Time Sulfa (Sulfonamide Allergy rash Verified 09/06/20 08:29 Antibiotics) PFSH Acute PFSH: Medical History (Updated 10/10/20 @ 02:17 by Nusrat Gore MD) Diabetes Hypertension Severe sleep apnea Social History History of recent travel: Yes Vitals/I&O/Wt Last Vital Signs Temp 98.8 F 10/10/20 00:17 Pulse 76 10/10/20 00:15 Resp 25 H 10/10/20 00:15 BP 99/71 10/10/20 00:15 Pulse Ox 95 10/10/20 00:15 Weight last 48 hrs Weight 124.738 kg Physical Exam Narrative: EXAM NARRATIVE: General: No acute distress, AO x3 HEENT: PERRLA, pupils bilaterally equal and reactive, pallors not present Chest: Normal vesicular breath sounds, no added sounds, equal good air entry bilaterally CVS: S1-S2 regular, no murmurs, no tachycardia, no gallops, no rubs Abdomen: Soft, nontender, no organomegaly, bowel sounds present Neuro: No focal deficits, no facial deformity, AO x3, power 5/5 in all limbs Data : 10/09/20 18:37 10/09/20 18:37 Micro: Microbiology 10/09/20 18:39 Blood Culture - Preliminary Blood SPECIMEN COLLECTED 10/09/20 18:37 Blood Culture - Preliminary Blood SPECIMEN COLLECTED A&P Assessment and plan (1) Sepsis: Meets criteria by way of fever, tachypnea, tachycardia, new oxygen requirement and source of infection by way of pneumonia. Status: Acute (2) Pneumonia: After recent COVID-19 infection. CTA with vague GGO's and dense left lower lobe infiltrate concerning for bacterial pneumonia. Start ceftriaxone and azithromycin empirically Check sputum culture, urine bacterial and Legionella antigens, MRSA PCR screen from nares. Scheduled nebulization with DuoNeb, incentive spirometry Pulmonary toilet as needed Supplemental O2 to keep saturation greater than 2 L/min IV fluids at 75 cc an hour Blood culture taken prior to initiation of antibiotics. Status: Acute Qualifiers: Laterality: left Lung location: lower lobe of lung Pneumonia type: due to unspecified organism Qualified Code(s): J18.9 - Pneumonia, unspecified organism Attestations Medical Necessity Statement*: Anticipate greater than 2 midnight admission for the management of community-acquired pneumonia Coding Level of Care Code Acute Laser Machine Operator for [facility] Diagnoses Sepsis A41.9 Pneumonia J18.9 Laterality: left Lung location: lower lobe of lung Pneumonia type: due to unspecified organism
[2020-10-10] MEDS: sodium chloride 0.9% 1,000 ML 75 ML IV (03:31)
[2020-10-10] MEDS: enoxaparin 40 mg/0.4 mL Syringe SUBCUT (03:42)
[2020-10-10] MEDS: cefTRIAXone 1,000 MG in sodium chloride 0.9% (plus) 50 ML 100 MG IV (03:42)
[2020-10-10] MEDS: morphine 4 mg/mL SDV 1 mL 2 MG IVP (03:43)
--- NOTE | 2020-10-10 03:55 | PC.PHAR ---
Pharmacokinetic dosing service Date: 10/10/20 Time: 399 Objective: Patient: Lionel Knutson Floor: ED-13 Age: 50 yo Serum creatinine: 0.9 mg/dL Height: 71.0 Inches Weight (kg): 124.738 Diagnosis: Relevant medical/social history: Cultures and sensitivities: Other labs: Assessment: IBW (kg): 75.30 Dosing wt(kg): 95.1 Estimated Creatinine clearance (ml/min): 103.4 CRCL method: Cockcroft and Gault using ibw(default). Drug selected: Vancomycin Loading dose (mg): 0 Vd (liters): 85.6 (factor used: 0.9 L/kg) Larry (hr-1): 0.090 Half life (hrs): 7.70 Recommended dose: 2000 mg Interval: 12 hrs Infusion time (hrs): 1.5 Predicted peak (mcg/mL): 33.1 Predicted trough (mcg/mL): 12.87 Adjusted body weight was selected for vancomycin dosing. To switch back, select the total body weight option above. Renal function is stable [ ] /unstable [ ] Recommendations: Give Vancomycin 2000 mg q 12 hrs with an expected Cpeak of 33.1 mcg/ml and an expected Ctrough of 12.87 mcg/ml Renal dosing of other antibiotics (review renal dosing of other medications and list guidelines here): Thank you for the consult, will continue to follow. Signature: Katherine Peters [facility]
[2020-10-10 05:23] LABS: Alanine Aminotransferase 23 U/L (0-41); Albumin Level 2.7 g/dL (3.5-5.2); Alkaline Phosphatase 168 IU/L (40-130); Anion Gap 13.6 (5-19); Aspartate Amino Transferase 38 U/L (0-40); Blood Urea Nitrogen 13 mg/dL (6-20); Calcium 8.6 mg/dL (8.5-10.5); Carbon Dioxide 27 mmol/L (22-29); Chloride 96 mmol/L (98-107); Creatinine Clr Calc Pharmacy 146.9044; Globulin 4.7 g/dL (1.3-4.6); Glomerular Filtration Rate 101.9 mL/min (90-130); Glucose 73 mg/dL (65-115); Osmolality Calculated 275 mOsm/kg (285-295); Potassium 3.6 mmol/L (3.5-5.1); Sodium 133 mmol/L (136-145); Total Bilirubin 0.2 mg/dL (0.15-1.2); Total Protein 7.4 g/dL (6.6-8.7)
--- NOTE | 2020-10-10 06:16 | PC.NURSE ---
Shift Note Frequent safety and comfort rounds continue. Orders and/or nursing care completed as indicated. Patient monitored for response to intervention and treatments. Education provided includes wearing oxygen and all antibitics given. Patient resistive to some aspects of care. with some education and encouragement pt understood care plan and agreed to comply. morning labs and antibiotics given.
[2020-10-10] MEDS: piperacillin-tazobactam 3.375 GM in sodium chloride 0.9% (plus) 50 ML IV (08:05)
[2020-10-10] MEDS: pantoprazole DR 40 mg Tablet PO (08:09)
[2020-10-10 08:21] LABS: Glucose Point of Care 82 mg/dL (70-110)
[2020-10-10] MEDS: ipratropium-albuterol 3 mL Neb INHALATION ×3 (08:22→20:11)
--- NOTE | 2020-10-10 09:49 | PM.PN ---
Documented by User: ZINA Boss STDNT 10/10/20 10:40 Subjective Subjective: Interval history: Reports feeling better this morning with less sob on 2.5L oxygen. Worried about intermittent fevers that occur in afternoons. Denies chest pain. Medications: Reviewed: Yes Vitals/I&O/Wt Last Vital Signs Temp 98.7 F 10/10/20 08:22 Pulse 78 10/10/20 08:28 Resp 24 H 10/10/20 08:22 BP 120/71 10/10/20 08:22 Pulse Ox 93 10/10/20 08:22 10/09/20 10/10/20 10/10/20 22:59 06:59 14:59 Intake Total 200 / 200 Balance 200 / 200 Weight last 48 hrs Weight 124.738 kg Physical Exam Narrative: EXAM NARRATIVE: Gen: no acute distress HENMT: PERRL, oropharynx clear Neck: supple. no JVD or lymphadenopathy Resp: inspiratory crackles LLL. R lung clear with diminished breath sounds and no wheezes. Cardio: RRR no murmrs, rubs, or gallops. GI: abdomen soft and non tender. BS [id number] Ext: full ROM with no pedal edema or clubbing Data : 10/09/20 18:37 10/10/20 04:43 Micro: Microbiology 10/09/20 18:39 Blood Culture - Preliminary Blood SPECIMEN COLLECTED 10/09/20 18:37 Blood Culture - Preliminary Blood SPECIMEN COLLECTED A&P Additional A&P Information Pneumonia CXR revealed dense consolidation in LLL concerning for bacterial pneumonia. Blood and sputum cultures pending. Treatment with IV Zithromax and Rocephin. Requiring 2.5L oxygen wean as tolerated. Sepsis Clinically improved, continue IV abx and await blood cultures. COVID-19 Positive on 09/12/20 and received monoclonal antibody infusion. Past 21 day quarantine. Diabetes Hold metformin. Order sliding scale. Carbohydrate Consistent Diet. Hypertension Stable. Continue current meds. Full code Lovenox DVT prophylaxis Attestations Medical Necessity Statement*: Requires continued hospital stay secondary to bacterial pneumonia requiring oxygen and IV antibiotics. Coding Level of Care Code Acute Health Service Coordinator for [facility] Fwd Diagnoses Pneumonia J18.9 Laterality: left Lung location: lower lobe of lung Pneumonia type: due to unspecified organism Sepsis A41.9 COVID-19 U07.1 Hypertension I10 Diabetes E11.9 Documented by User: Jalen Deras MD 10/10/20 10:43 Subjective Subjective: Interval history: Agree with above interviewed with the patient. Physical Exam Narrative: EXAM NARRATIVE: Agree with physical exam above. Data : 10/09/20 18:37 10/10/20 04:43 A&P Assessment and plan (1) Pneumonia: Status: Acute Qualifiers: Laterality: left Lung location: lower lobe of lung Pneumonia type: due to unspecified organism Qualified Code(s): J18.9 - Pneumonia, unspecified organism (2) Sepsis: Status: Acute (3) COVID-19: Status: Acute (4) Hypertension: Status: Acute (5) Diabetes: Status: Acute Additional A&P Information Above reviewed with student in detail. Assessment and plan is as she has documented. I have visited with the patient as well Attestations Medical Necessity Statement*: Requires continued hospitalization for pneumonia requiring IV antibiotics and oxygen. Coding Level of Care Code Acute Health Service Coordinator for g Fwd Diagnoses Pneumonia J18.9 Laterality: left Lung location: lower lobe of lung Pneumonia type: due to unspecified organism Sepsis A41.9 COVID-19 U07.1 Hypertension I10 Diabetes E11.9
[2020-10-10 11:31] LABS: Glucose Point of Care 122 mg/dL (70-110)
--- NOTE | 2020-10-10 15:40 | PC.NURSE ---
Report called to Shanel NORRIS for transfer to bed 255-2
[2020-10-10 17:01] LABS: Glucose Point of Care 130 mg/dL (70-110)
--- NOTE | 2020-10-10 18:34 | PC.RESP ---
SMOKING CESSATION INFORMATION SENT TO PATIENT.
[2020-10-10] MEDS: acetaminophen 325 mg Tablet 650 MG PO (19:16)
[2020-10-10 20:28] LABS: Glucose Point of Care 129 mg/dL (70-110)
[2020-10-11] MEDS: azithromycin 500 MG in sodium chloride 0.9% 250 ML 250 MG IV (02:21)
[2020-10-11] MEDS: enoxaparin 40 mg/0.4 mL Syringe SUBCUT (02:21)
[2020-10-11 02:56] VITALS: PULSE 93; RESP 18; O2SAT 92
[2020-10-11] MEDS: ipratropium-albuterol 3 mL Neb INHALATION ×2 (02:56→08:20)
[2020-10-11 03:01] VITALS: PULSE 95; RESP 18; O2SAT 92
[2020-10-11] MEDS: cefTRIAXone 1,000 MG in sodium chloride 0.9% (plus) 50 ML 100 MG IV (03:18)
[2020-10-11 03:49] VITALS: BP 124/72; PULSE 82; RESP 18; TEMP 36.8; O2SAT 90
[2020-10-11 05:11] LABS: Basophils % 0.5 %; Eosinophils # 0.3 10^3/uL (0.0-0.8); Eosinophils % 4.2 %; Hematocrit 39.9 % (42.0-52.0); Hemoglobin 13.1 g/dL (11.7-16.6); Lymphocytes # 2.7 10^3/uL (0.8-4.8); Lymphocytes % 34.5 %; Mean Corpuscular HGB Conc 32.8 g/dL (30.0-36.0); Mean Corpuscular Volume 91.3 fl (80-94); Mean Platelet Volume 10.7 fL (7.4-10.4); Monocytes # 0.7 10^3/uL (0.2-0.9); Monocytes % 9.6 %; Neutrophils # 3.68 10^3/uL (1.8-7.7); Neutrophils % 47.8 %; Nucleated Red Blood Cells % 0 %; Platelet Count 226 10^3/cmm (130-400); Red Blood Count 4.37 10^6/uL (4.1-5.3); Red Cell Distribution Width 14.3 % (12.1-15.1); White Blood Count 7.7 10^3/uL (4.0-10.0)
[2020-10-11 05:33] LABS: Alanine Aminotransferase 20 U/L (0-41); Albumin Level 2.6 g/dL (3.5-5.2); Alkaline Phosphatase 157 IU/L (40-130); Anion Gap 15.4 (5-19); Aspartate Amino Transferase 31 U/L (0-40); Blood Urea Nitrogen 8 mg/dL (6-20); Calcium 8.5 mg/dL (8.5-10.5); Carbon Dioxide 25 mmol/L (22-29); Chloride 102 mmol/L (98-107); Globulin 4.5 g/dL (1.3-4.6); Glucose 96 mg/dL (65-115); Osmolality Calculated 286 mOsm/kg (285-295); Potassium 3.4 mmol/L (3.5-5.1); Sodium 139 mmol/L (136-145); Total Bilirubin 0.2 mg/dL (0.15-1.2); Total Protein 7.1 g/dL (6.6-8.7)
[2020-10-11 06:39] LABS: Glucose Point of Care 136 mg/dL (70-110)
--- NOTE | 2020-10-11 07:06 | PC.NURSE ---
Shift Report: Patient rested most of night with no acute events.
--- NOTE | 2020-10-11 07:37 | PM.PN ---
Documented by User: ZINA Boss STDNT 10/11/20 08:41 Subjective Subjective: Interval history: Reports he is feeling better and denies current complaints. Breathing room air, states he is ready to go home. Medications: Reviewed: Yes Vitals/I&O/Wt Last Vital Signs Temp 98.2 F 10/11/20 03:49 Pulse 82 10/11/20 03:49 Resp 18 10/11/20 03:49 BP 124/72 10/11/20 03:49 Pulse Ox 90 10/11/20 03:49 10/10/20 10/11/20 10/11/20 22:59 06:59 14:59 Intake Total 1120 / 1170 540 / 1710 Balance 1120 / 1170 540 / 1710 Weight last 48 hrs Weight 124.738 kg Physical Exam Narrative: EXAM NARRATIVE: Gen: No acute distress sitting up in bed. HENMT: Pupils reactive, oropharynx clear. Neck: supple without lymphadenopathy or JVD Resp: Faint LLL inspiratory crackles. R lung clear, no wheezes. Cardio: RRR without murmurs. GI: abdomen soft, non tender, positive bowel sounds. Ext: no cyanosis, clubbing, or edema. Data : 10/11/20 04:30 10/11/20 04:30 Micro: Microbiology 10/09/20 18:39 Blood Culture - Preliminary Blood NEGATIVE TO DATE 10/09/20 18:37 Blood Culture - Preliminary Blood NEGATIVE TO DATE 10/10/20 11:23 Gram Stain - Final Sputum - Expectorated Sputum 10/10/20 04:09 MRSA Culture - Final Nose A&P Additional A&P Information Pneumonia LLL bacterial pneumonia. Clinically improving. Off nasal canula and breathing room air. Blood cultures negative to date. Sputum culture still pending. Continue zithromax and rocephin. Sepsis Resolved. Covid-19 Positive on 09/12/20 and received monoclonal antibody infusion. Past 21 day quarantine. Diabetes Continue sliding scale and carbohydrate consistent diet. Hypertension Stable. Continue current meds. Full Code Lovenox DVT prophylaxis Fever has resolved. Sodium corrected. Coding Level of Care Code Acute Seal Delivery Vehicle Team Technician for [facility] Fwd Documented by User: Jalen Deras MD 10/11/20 09:08 Data : 10/11/20 04:30 10/11/20 04:30 A&P Additional A&P Information Overall improved. Discharging. Agree with above. See discharge summary. Attestations Medical Necessity Statement*: Not applicable Coding Level of Care Code Acute Seal Delivery Vehicle Team Technician for [facility]
[2020-10-11 08:00] VITALS: BP 125/75; PULSE 75; RESP 18; TEMP 36.8; O2SAT 92
[2020-10-11 08:24] VITALS: PULSE 78; RESP 18; O2SAT 92
[2020-10-11] MEDS: citalopram 20 mg Tablet 40 MG PO (08:51)
[2020-10-11] MEDS: pantoprazole DR 40 mg Tablet PO (08:51)
[2020-10-11] MEDS: acetaminophen 325 mg Tablet 650 MG PO (08:51)
--- NOTE | 2020-10-11 08:51 | PC.CHAP ---
Pastoral Care Encounter/Spiritual Assessment Type of Contact [] Declined profile stitching machine operator visit [] Patient/Family/Request visit [] Outpatient visit [] Follow-up visit [] Physician referral [] Code/Alert [x] Routine visit [] Staff referral [] Actively dying [] Patient sleeping [] Family support [] [] Out of room [] Palliative care [] [] Receiving care in room [] Pre-surgical visit [] Trauma [] Long length of stay [] ICU visit [] Other: Relational/Emotional Strength [x] Patient feels connected with others/family/visitors/staff [] Distress [] Loneliness/isolation [] Abandonment Spirituality of Patient [x] Person of Elena [] Attends Congregation of their Elena [x] Believes in Prayer [] Reads Bible or Muslim materials [] There are Spiritual issues to be addressed [employer] Interventions [x] Prayer [] Active listening [] Non-anxious presence [] Spiritual/emotional support [] Crisis/trauma care [] Spiritual counseling [] Bereavement support [] Provided bereavement packet [] Provided Bible/devotional materials [] Provided toy/stuffed animal, coloring book to patient or family member [] Provided Communion [] Anointing/[place] [] Salvation [x] Completed spiritual assessment [] Other: Impact on Illness or Injury [] Angry [] Fearful [] Anxious [] Often cries [] Exhaustion [] Unable to work [] Unable to attend evangelical [] Unable to walk/stand [] Unable to read [] Unable to drive [] Unable to eat/drink [] Unable to sleep [] Unable to be with family [] Patient intubated [] Other: Summary Time spent with patient 10 min
[2020-10-11] MEDS: potassium chloride ER 20 mEq Tablet 40 MEQ PO (08:56)
--- NOTE | 2020-10-11 09:15 | PM.DCS ---
Discharge Providers Date of Admission: 10/10/20 01:49 Date of Discharge: October 11, 2020 Attending Provider at Admission: Nusrat Gore MD Attending Provider at Discharge: Jalen Deras MD Primary Care Provider: Amari Rosales MD Diagnoses at Discharge Discharge Diagnosis (1) Pneumonia: Status: Acute Qualifiers: Laterality: left Lung location: lower lobe of lung Pneumonia type: due to unspecified organism Qualified Code(s): J18.9 - Pneumonia, unspecified organism (2) Sepsis: Status: Acute (3) COVID-19: Status: Acute (4) Hypertension: Status: Acute (5) Diabetes: Status: Acute Reason for Visit Reason for Visit: FEVER,COUGH,H/A:COVID(+)3 WKS AGO,HAS HAD INFUSION Hospital Course Hospital Course Lionel is a 50-year-old male with recent history of Covid approximately 1 month ago who came to the hospital with history of fever and cough. He was diagnosed with bacterial pneumonia, apparent on chest x-ray with a left lower lobe infiltrate. CTA was also performed demonstrating no pulmonary embolism, and dense consolidation left lower lobe. He was placed on Rocephin and azithromycin after appropriate cultures were obtained. By October 11 he had been afebrile for over 24 hours, weaned down to room air(required 3 L on admission) and requested to go home. Cultures were negative at that time. He was discharged home with one more dose of Zithromax, and 8 days of cefdinir. White blood cell count was normal on discharge. He will follow-up in 3 to 5 days. Consider chest x-ray in 4 weeks for clearing of pneumonia. He is to return for any worsening. Instructed not to take his Metformin until tomorrow secondary to radiological dye he received and CTA Physical Exam Narrative: EXAM NARRATIVE: General exam no apparent distress Neck supple Cardiovascular regular rate and rhythm Lungs a few faint crackles left lower lobe, improved from admission Abdomen is soft with positive bowel sounds Extremities no cyanosis clubbing or edema Discharge Data Data Completed and Pending: Completed Studies During Hospitalization Category Date Time Status CT angio chest PE protcl 99222 Urge nt Cat Scan 10/09/20 20:48 Completed XR chest 1V melanie ble 59370 Stat Exams 10/09/20 17:37 Completed Pending at discharge Category Date Time Status Bacterial Antigen Stat Lab 10/10/20 02:39 Ordered Blood Culture Sta t Lab 10/09/20 18:39 Results Legionella Antige n STAT Stat Lab 10/10/20 02:39 Ordered Sputum Culture an d Gram Stain Stat Lab 10/10/20 11:23 Results Labs from last 24 hours 10/11/20 10/11/20 10/11/20 06:28 04:30 04:30 WBC 7.7 RBC 4.37 Hgb 13.1 Hct 39.9 L MCV 91.3 MCH 30.0 MCHC 32.8 RDW 14.3 Plt Count 226 MPV 10.7 H Neut % (Auto) 47.8 Lymph % (Auto) 34.5 Williams % (Auto) 9.6 Eos % (Auto) 4.2 Baso % (Auto) 0.5 Neut # (Auto) 3.68 Lymph # (Auto) 2.7 Williams # (Auto) 0.7 Eos # (Auto) 0.3 Baso # (Auto) 0.0 Nucleated RBC % (a uto) 0 Nucleated RBCs # 0.0 Sodium 139 Potassium 3.4 L Chloride 102 Carbon Dioxide 25 Anion Gap 15.4 BUN 8 Creatinine 0.6 L GFR Calculation 142.0 H Glucose 96 POC Glucose 136 H Calculated Osmolal ity 286 Calcium 8.5 Total Bilirubin 0.2 AST 31 ALT 20 Alkaline Phosphata se 157 H Total Protein 7.1 Albumin 2.6 L Globulin 4.5 10/10/20 10/10/20 10/10/20 20:17 16:57 11:28 WBC RBC Hgb Hct MCV MCH MCHC RDW Plt Count MPV Neut % (Auto) Lymph % (Auto) Williams % (Auto) Eos % (Auto) Baso % (Auto) Neut # (Auto) Lymph # (Auto) Williams # (Auto) Eos # (Auto) Baso # (Auto) Nucleated RBC % (a uto) Nucleated RBCs # Sodium Potassium Chloride Carbon Dioxide Anion Gap BUN Creatinine GFR Calculation Glucose POC Glucose 129 H 130 H 122 H Calculated Osmolal ity Calcium Total Bilirubin AST ALT Alkaline Phosphata se Total Protein Albumin Globulin Vitals: Last Vital Signs Temp 98.2 F 10/11/20 08:00 Pulse 78 10/11/20 08:24 Resp 18 10/11/20 08:24 BP 125/75 10/11/20 08:00 Pulse Ox 92 10/11/20 08:24 Discharge Plan Discharge Patient Disposition: Home Condition: Stable Prescriptions: New azithromycin 500 mg tablet 500 mg PO DAILY 1 Days Qty: 1 RF: 0 cefdinir 300 mg capsule 300 mg PO Q12H 8 Days Qty: 16 RF: 0 Continued mupirocin 2 % ointment 1 applic topical BID Qty: 22 RF: 1 (DME) Bone Growth Stimulator [id number] See Rx Instructions .Route .MEDSUPPLY Qty: 1 RF: 0 Celexa 40 mg Tablet 40 mg PO DAILY RF: 0 Zyrtec 10 mg Tablet 10 mg PO QAM RF: 0 Tylenol Extra Strength 500 mg Tablet 1,000 mg PO Q4H PRN (Reason: Pain) RF: 0 Protonix 40 mg Tablet,Delayed Release (Dr/Ec) 40 mg PO DAILY RF: 0 glimepiride 4 mg Tablet 4 mg PO QAM RF: 0 Vitamin C 500 mg Tablet,Chewable 500 mg PO DAILY RF: 0 hydroxyzine HCl 25 mg Tablet 25 - 50 mg PO BEDTIME PRN (Reason: Itching) RF: 0 lisinopril-hydrochlorothiazide 10-12.5 mg Tablet 1 tab PO QAM RF: 0 testosterone cypionate 200 mg/mL Oil 200 mg IM Q30D RF: 0 metformin 500 mg Tablet Extended Release 24 Hr 1,000 mg PO DAILY RF: 0 zinc 1 cap PO DAILY RF: 0 loratadine [Claritin] 10 mg tablet 10 mg PO BEDTIME RF: 0 Discontinued prednisone 20 mg Tablet 20 mg PO DAILY PRN (Reason: poison helena) RF: 0 ibuprofen 200 mg Tablet 800 mg PO Q8H PRN (Reason: Pain) RF: 0 Discharge Orders: Discharge Order (Routine); Ordered 10/11/20 Ordered By: Jalen Deras Referrals: Amari Rosales MD [Primary Care Provider] - 4-7 days (Consider chest x-ray repeat to demonstrate clearing of pneumonia in approximately 4 weeks.) Discharge Diet: Cardiac and Diabetic Discharge Activity: Increase activity as tolerated Patient Instructions: Opioid Safety Activity Restrictions/Additional Instructions: Do not take your Metformin until tomorrow Take all antibiotics as prescribed Return if any worsening Discharge Attestations Time Spent in Discharge Care*: greater than 30 min Quality Metrics Clinical Quality Measures During this hospital stay, did patient experience: None Coding Level of Care Code Acute g [facility] note Diagnoses Pneumonia J18.9 Laterality: left Lung location: lower lobe of lung Pneumonia type: due to unspecified organism Sepsis A41.9 COVID-19 U07.1 Hypertension I10 Diabetes E11.9
[2020-10-11 11:23] VITALS: PULSE 78; RESP 18; O2SAT 92
--- NOTE | 2020-10-13 11:09 | PC.SOCIAL ---
follow up call made to patient. patient had follow up appointment with dr. mckeon on the . patient feels he is getting sob easier. made an appointment for tomorrow with dr. mckeon for patient to follow up. patient is taking cefdinir as prescribed and all other home medications.
== END 2020-10-11 11:24 | disposition home or self-care (01) | DRG 195 ==
LOC: ER 23:34 → ER IP 10-10 01:50 → MEDSURG 10-10 15:15
PROVIDERS: Nurse Practitioner Family; Admitting Provider Student in an Organized Health Care Education/Training Program; Emergency Provider Emergency Medicine; PCP Family Medicine; Visit Provider Internal Medicine
DX: J15.9 Unspecified bacterial pneumonia (principal); Z86.16 Personal history of COVID-19; E11.9 Type 2 diabetes mellitus without complications; I10 Essential (primary) hypertension; G47.30 Sleep apnea, unspecified; Z79.84 Long term (current) use of oral hypoglycemic drugs
CPT/HCPCS: 36415; 36416; 71045; 71275; 80053; 82962; 83605; 84145; 85025; 85378; 86140; 87040; 87070; 87205; 87641; 94640; 94664; 96365; 96367; 96372; 96375; 99285; J0456; J0696; J1650; J1885; J1956; J2270; J2543; J3370; J7030; J7040; J7050; Q9967

== ENCOUNTER → 2020-12-01 07:57 | Outpatient (BNVA) | payer OTHER, SELFPAY | PROVIDERS: PCP Family Medicine; Referring Provider Neurological Surgery; Visit Provider Specialist | DX: G62.89 Other specified polyneuropathies (principal); G56.03 Carpal tunnel syndrome, bilateral upper limbs; M54.2 Cervicalgia; M54.50 Low back pain, unspecified | CPT/HCPCS: 95913 ==

== ENCOUNTER → 2020-12-07 11:14 | Outpatient (BNVA) | payer OTHER, SELFPAY | PROVIDERS: PCP Family Medicine; Visit Provider Specialist | DX: M48.02 Spinal stenosis, cervical region (principal); G99.2 Myelopathy in diseases classified elsewhere; M51.9 Unspecified thoracic, thoracolumbar and lumbosacral intervertebral disc disorder; G56.01 Carpal tunnel syndrome, right upper limb | CPT/HCPCS: 95864 ==

== ENCOUNTER → 2021-03-08 10:20 | Outpatient (BNVA) | payer OTHER, MEDICAID, SELFPAY | PROVIDERS: PCP Family Medicine; Referring Provider Neurological Surgery; Visit Provider Specialist | DX: G56.03 Carpal tunnel syndrome, bilateral upper limbs (principal) | CPT/HCPCS: 73130 ==

== ENCOUNTER → 2021-03-31 10:00 | Outpatient (BNVA) | payer OTHER, MEDICAID, SELFPAY | PROVIDERS: PCP Family Medicine; Visit Provider Specialist | DX: Z20.822 Contact with and (suspected) exposure to COVID-19 (principal); G56.01 Carpal tunnel syndrome, right upper limb | CPT/HCPCS: 87635 ==

== ENCOUNTER → 2021-04-03 11:38 | Outpatient (BNVA) | payer OTHER, SELFPAY | PROVIDERS: PCP Family Medicine; Visit Provider Specialist | DX: G56.01 Carpal tunnel syndrome, right upper limb (principal) | CPT/HCPCS: 87635 ==

== ENCOUNTER 2021-04-07 06:21 | Day surgery (SDC) | payer OTHER, MEDICAID, SELFPAY ==
[2021-04-06 12:15] VITALS: BMI 38.2
[2021-04-07] VITALS (9 sets, daily range): BP systolic 96–135; BP diastolic 65–86; PULSE 75–85; RESP 12–18; TEMP 36.1–36.4; O2SAT 92–98
--- NOTE | 2021-04-07 06:50 | P.ANESASSM_ITS ---
Pre-Anesthetic Assessment Height/Weight: Height 1.8 m Weight 124.284 kg Temp Pulse Resp BP Pulse Ox 97.3 F L 84 18 135/86 95 04/07/21 06:45 04/07/21 06:45 04/07/21 06:45 04/07/21 06:45 04/07/21 06:45 Preop Diagnosis: Right carpal tunnel syndrome Operation Date: 04/07/21 08:00 Proposed Procedures p Carpal Tunnel Release 17705/g56.00(Right) - Elizabeth Holland MD Familial anesthetic complications: None Was Beta Erickson taken within 24 hours: N/A Was Clonidine taken within 24 hours: N/A Last intake: Intake Last Liquid Date 04/06/21 Last Liquid Time 22:00 Last Solid Date 04/06/21 Last Solid Time 22:00 Social No alcohol and No tobacco Exam alert, oriented x 3, clear to auscultation bilaterally and regular rate & rhythm Airway Mallampati: Class III Dentition: full Pulmonary Sleep Apnea covid in oct 01 - back to baseline now CV/HEM Hypertension GI Gastroesophageal Reflux Disease Metabolic Diabetes Mellitus and Morbid Obesity [facility] [place] Lower Back Pain Neuropsych Neuropathy Anesthetic Plan ASA status: 3 Anesthesia: MAC and Regional (specify below) Medications/Allergies Home Medications Medication Instructions Recorded Confirmed Last Taken Type loratadine 10 mg tablet (Claritin) 10 mg PO BEDTIME 05/26/19 04/06/21 04/06/21 History Bone Growth Stimulator [id number] #1 ea 06/13/20 03/08/21 Unknown Rx mupirocin 2 % topical ointment 1 applic TOPICAL BID #22 g 09/06/20 04/06/21 04/06/21 Rx cetirizine 10 mg tablet (Zyrtec) 10 mg PO QAM 10/10/20 03/08/21 Unknown History citalopram 40 mg tablet (Celexa) 40 mg PO DAILY 10/10/20 04/06/21 04/06/21 History glimepiride 4 mg tablet 4 mg PO QAM 10/10/20 04/06/21 04/06/21 History hydroxyzine HCl 25 mg tablet 25 - 50 mg PO BEDTIME PRN 10/10/20 04/06/21 Unknown History lisinopril 10 1 tab PO QAM 10/10/20 04/06/21 04/06/21 History mg-hydrochlorothiazide 12.5 mg tablet metformin 500 mg tablet,extended 1,000 mg PO DAILY 10/10/20 04/06/21 04/06/21 08:00 History release 24 hr pantoprazole 40 mg tablet,delayed 40 mg PO DAILY 10/10/20 04/06/21 04/06/21 History release (Protonix) testosterone cypionate 200 mg/mL 200 mg IM Q30D 10/10/20 04/06/21 Unknown History intramuscular oil doxycycline hyclate 100 mg capsule 100 mg PO BID 04/06/21 04/06/21 04/06/21 History Allergies Allergy/AdvReac Type Severity Reaction Status Date / Time Sulfa (Sulfonamide Allergy rash Verified 04/07/21 06:46 Antibiotics) [facility] [place] Anesthesia Medical History Diabetes Hypertension Severe sleep apnea Social History Smoking and tobacco status: former smoker Alcohol intake: never History of recent travel: Yes Data Anesthesia Cardiac Studies: No Data to Display
[2021-04-07 07:13] LABS: Glucose Point of Care 179 mg/dL (70-110)
[2021-04-07] MEDS: sodium chloride 0.9% 1,000 ML 30 ML IV (07:14)
[2021-04-07] MEDS: acetaminophen 1,000 MG/100 ML PIGGYBACK 400 MG IV (07:14)
[2021-04-07] MEDS: CELEcoxib 200 mg Capsule 400 MG PO (07:15)
--- NOTE | 2021-04-07 08:15 | P.HPUD_ITS ---
Surgery/Procedure H&P Update DATE OF PROCEDURE: April 07, 2021 DATE H&P PERFORMED: 03/08/21 H&P UPDATE INFORMATION: I have reviewed H&P completed within last 30 days, I have examined patient prior to procedure, No changes to prior documentation and H&[place] is in [facility] [place] on date indicated PREOP DIAGNOSIS: Right carpal tunnel syndrome PLANNED PROCEDURE: Operation Date: 04/07/21 08:00 Proposed Procedures p Carpal Tunnel Release 51781/g56.00(Right) - Elizabeth Holland MD
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
--- NOTE | 2021-04-07 09:27 | SUR.PHASEI ---
patient into pacu with oral airway in place. simple mask with o2 at 6l and sats at 96%. patient is asleep. dressing to right hand dry and intact.
--- NOTE | 2021-04-07 09:39 | SUR.PHASEI ---
Patient awake, oral airway removed. patient wiggling fingers to right hand, warm and pink.
--- NOTE | 2021-04-07 09:41 | SUR.PHASEI ---
simple mask removed, on room air. sats at 96%.
--- NOTE | 2021-04-07 12:41 | ANE.PACU2 ---
Inpatient post-anesthesia follow up: Airway intact: Yes Vital signs: Temperature 97 F Pulse Rate 75 Respiratory Rate 18 Blood Pressure 114/65 Pulse Oximetry 97 Oxygen Delivery Me thod Room Air Oxygen Flow Rate 6 Fraction of Inspir ed Oxygen Hydration adequate: Yes Nausea and vomiting: No Pain level: 2 Mental status: Baseline
== END 2021-04-07 10:45 | disposition home or self-care (01) ==
PROVIDERS: PCP Family Medicine; Visit Provider Specialist
PROC: (CPT 64721; principal; 2021-04-07 08:00)
DX: G56.01 Carpal tunnel syndrome, right upper limb (principal); I10 Essential (primary) hypertension; K21.9 Gastro-esophageal reflux disease without esophagitis; E11.9 Type 2 diabetes mellitus without complications; E66.01 Morbid (severe) obesity due to excess calories; Z68.38 Body mass index [BMI] 38.0-38.9, adult; G47.30 Sleep apnea, unspecified; Z79.84 Long term (current) use of oral hypoglycemic drugs
CPT/HCPCS: 64721; 36416; 82962; 96365; J0690; J2250; J2704; J3010; J3490; J7030

== ENCOUNTER → 2021-05-08 00:01 | Outpatient (BNVA) | payer OTHER, MEDICAID, SELFPAY | PROVIDERS: PCP Family Medicine; Visit Provider Specialist | DX: Z01.812 Encounter for preprocedural laboratory examination (principal); Z20.822 Contact with and (suspected) exposure to COVID-19 | CPT/HCPCS: 87635 ==

== ENCOUNTER 2021-05-12 05:50 | Day surgery (SDC) | payer OTHER, MEDICAID, SELFPAY ==
[2021-05-11 14:32] VITALS: BMI 38.2
[2021-05-12 06:07] VITALS: BP 130/74; PULSE 82; RESP 16; TEMP 36.5; O2SAT 93
[2021-05-12] MEDS: CELEcoxib 200 mg Capsule 400 MG PO (06:34)
[2021-05-12] MEDS: sodium chloride 0.9% 1,000 ML 30 ML IV (06:35)
[2021-05-12] MEDS: acetaminophen 1,000 MG/100 ML PIGGYBACK 400 MG IV (06:37)
[2021-05-12] MEDS: vancomycin 1,000 MG in sodium chloride 0.9% 250 ML 250 MG IV (06:40)
[2021-05-12] MEDS: famotidine 20 mg/2 mL INJ IVP (06:44)
--- NOTE | 2021-05-12 06:45 | ANES.PREANE2 ---
Pre-Anesthetic Assessment Height/Weight: Height 1.8 m Weight 124.284 kg Temp Pulse Resp BP Pulse Ox 97.7 F 82 16 130/74 93 05/12/21 06:07 05/12/21 06:07 05/12/21 06:07 05/12/21 06:07 05/12/21 06:07 Preop Diagnosis: Left Carpal Tunnel Syndrome Operation Date: 05/12/21 07:00 Proposed Procedures p Carpal Tunnel Release [id number]/g56.00(Left) - Elizabeth Holland MD Familial anesthetic complications: None Was Beta Erickson taken within 24 hours: N/A Was Clonidine taken within 24 hours: N/A Last intake: Intake Last Liquid Date 05/11/21 Last Liquid Time 21:30 Last Solid Date 05/11/21 Last Solid Time 18:00 Social No alcohol and No tobacco Exam alert, oriented x 3, clear to auscultation bilaterally and regular rate & rhythm Airway Submandibular: within normal limits Cervical ROM: within normal limits Mallampati: Class II Dentition: chipped History/ROS No significant complaints Pulmonary Sleep Apnea CV/HEM Hypertension None reported Hepatic None reported GI Gastroesophageal Reflux Disease Occasional reflux on empty stomach Metabolic Diabetes Mellitus Musc/skel Osteoarthritis/DJD Neuropsych Neuropathy Anesthetic Plan ASA status: 3 (50 year old male former smoker with severe RAFY, DM, and HTN.) Anesthesia: Anesthesia Evaluation, MAC and Regional (specify below) ([place] block) Other: I discussed with the patient risks, goals, and benefits of MAC, Maria Block, and general anesthesia. We discussed spectrum of MAC anesthesia including conversion to general as well as possibility of recall of intraoperative stimuli including discomfort/pain. Patient agrees to proceed with MAC. Risk of > 500 ml blood loss (7ml/kg in children): No Medications/Allergies Home Medications Medication Instructions Recorded Confirmed Last Taken Type loratadine 10 mg tablet (Claritin) 10 mg PO BEDTIME 05/26/19 05/12/21 05/11/21 History Bone Growth Stimulator [id number] #1 ea 06/13/20 05/08/21 Unknown Rx cetirizine 10 mg tablet (Zyrtec) 10 mg PO QAM 10/10/20 05/12/21 05/11/21 History citalopram 40 mg tablet (Celexa) 40 mg PO DAILY 10/10/20 05/12/21 05/11/21 History glimepiride 4 mg tablet 4 mg PO QAM 10/10/20 05/12/21 05/11/21 History hydroxyzine HCl 25 mg tablet 25 - 50 mg PO BEDTIME PRN 10/10/20 05/12/21 Unknown History lisinopril 10 1 tab PO QAM 10/10/20 05/11/21 04/06/21 History mg-hydrochlorothiazide 12.5 mg tablet metformin 500 mg tablet,extended 1,000 mg PO DAILY 10/10/20 05/12/21 05/11/21 History release 24 hr pantoprazole 40 mg tablet,delayed 40 mg PO DAILY 10/10/20 05/12/21 05/11/21 History release (Protonix) testosterone cypionate 200 mg/mL 200 mg IM Q30D 10/10/20 05/11/21 Unknown History intramuscular oil doxycycline hyclate 100 mg tablet 100 mg PO DAILY #15 tab 05/08/21 05/12/21 05/11/21 Rx hydrocodone 5 mg-acetaminophen 325 1 tab PO Q4H PRN 7 Days #30 tab 05/12/21 Unknown Rx mg tablet Allergies Allergy/AdvReac Type Severity Reaction Status Date / Time Sulfa (Sulfonamide Allergy rash Verified 05/12/21 06:04 Antibiotics) Current Medications Generic Name Dose Route Start Last Admin Trade Name Freq PRN Reason Stop Dose Admin Sodium Chloride 1,000 mls @ 30 mls/hr 05/12/21 06:00 05/12/21 06:35 Sodium Chloride 0.9% IV 05/13/21 05:59 30 mls/hr .Q24H KENNETH Administration Vancomycin HCl 1,000 mg/ 250 mls @ 250 mls/hr 05/12/21 06:21 05/12/21 06:40 Sodium Chloride IV 05/12/21 07:20 250 mls/hr ONCE ONE Administration Protocol PFS Anesthesia Medical History Diabetes Hypertension Severe sleep apnea Social History Smoking and tobacco status: former smoker Alcohol intake: never History of recent travel: Yes Data Anesthesia Cardiac Studies: No Data to Display
--- NOTE | 2021-05-12 06:56 | P.HPUD_ITS ---
Surgery/Procedure H&P Update DATE OF PROCEDURE: May 12, 2021 DATE H&P PERFORMED: 05/08/21 H&P UPDATE INFORMATION: I have reviewed H&P completed within last 30 days, I have examined patient prior to procedure, No changes to prior documentation and [place] [facility] [place] date indicated PREOP DIAGNOSIS: Left Carpal Tunnel Syndrome PLANNED PROCEDURE: Operation Date: 05/12/21 07:00 Proposed Procedures p Carpal Tunnel Release 75231/g56.00(Left) - Elizabeth Holland MD Related Problem List Diagnoses (1) Carpal tunnel syndrome, left:
[2021-05-12 07:59] VITALS: BP 133/84; PULSE 86; RESP 18; TEMP 36.4; O2SAT 94
[2021-05-12 08:04] VITALS: BP 159/87; PULSE 86; RESP 18; O2SAT 93
[2021-05-12 08:07] VITALS: BP 127/93; PULSE 81; RESP 18; O2SAT 94
[2021-05-12 08:28] VITALS: BP 166/106; PULSE 74; RESP 18; O2SAT 93
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
--- NOTE | 2021-05-12 08:57 | ANE.PACU2 ---
Inpatient post-anesthesia follow up: Airway intact: Yes Vital signs: Temperature 97.6 F Pulse Rate 74 Respiratory Rate 18 Blood Pressure 166/106 Pulse Oximetry 93 Oxygen Delivery Me thod Room Air Oxygen Flow Rate Fraction of Inspir ed Oxygen Hydration adequate: Yes Nausea and vomiting: No Pain level: 1 Mental status: Baseline
== END 2021-05-12 08:37 | disposition home or self-care (01) ==
PROVIDERS: PCP Family Medicine; Visit Provider Specialist
PROC: (CPT 64721; principal; 2021-05-12 07:00)
DX: G56.02 Carpal tunnel syndrome, left upper limb (principal); I10 Essential (primary) hypertension; K21.9 Gastro-esophageal reflux disease without esophagitis; M19.90 Unspecified osteoarthritis, unspecified site; E11.40 Type 2 diabetes mellitus with diabetic neuropathy, unspecified; Z87.891 Personal history of nicotine dependence; G47.33 Obstructive sleep apnea (adult) (pediatric)
CPT/HCPCS: 64721; J0690; J2704; J3010; J3370; J3490; J7030; J7050

== ENCOUNTER → 2021-05-25 13:06 | Outpatient (BNVA) | payer OTHER, MEDICAID, SELFPAY | PROVIDERS: PCP Family Medicine; Visit Provider Orthopaedic Surgery | DX: M48.062 Spinal stenosis, lumbar region with neurogenic claudication (principal) | CPT/HCPCS: 99214 ==

== ENCOUNTER 2021-06-21 07:22 | Day surgery (SDC) | payer OTHER, MEDICAID, SELFPAY ==
[2021-06-14 09:35] VITALS: BMI 38.2
--- NOTE | 2021-06-14 12:27 | ANES.PREANE2 ---
Pre-Anesthetic Assessment Height/Weight: Height 1.8 m Weight 124.284 kg Preop Diagnosis: Left Carpal Tunnel Syndrome Operation Date: 06/21/21 07:00 Proposed Procedures p Lumbar Spine Decompression L3/4,L4/5 07253/92310/M48.062(Not Applicable) - Christiano Esteban DO Familial anesthetic complications: None Was Beta Erickson taken within 24 hours: N/A Was Clonidine taken within 24 hours: N/A Social No alcohol and No tobacco Exam alert, oriented x 3 and regular rate & rhythm Airway Submandibular: within normal limits Cervical ROM: within normal limits Mallampati: Class II Dentition: chipped CV/HEM Hypertension Metabolic Diabetes Mellitus and Morbid Obesity Musc/skel Lower Back Pain and Osteoarthritis/DJD Bilateral LE pain Neuropsych Neuropathy Anesthetic Plan ASA status: 3 Anesthesia: General Medications/Allergies Home Medications Medication Instructions Recorded Confirmed Last Taken Type loratadine 10 mg tablet (Claritin) 10 mg PO BEDTIME 05/26/19 06/14/21 06/14/21 History Bone Growth Stimulator [id number] #1 ea 06/13/20 05/25/21 Unknown Rx cetirizine 10 mg tablet (Zyrtec) 10 mg PO QAM 10/10/20 06/14/21 06/14/21 History citalopram 40 mg tablet (Celexa) 40 mg PO DAILY 10/10/20 06/14/21 06/14/21 History glimepiride 4 mg tablet 4 mg PO QAM 10/10/20 06/14/21 06/14/21 History hydroxyzine HCl 25 mg tablet 25 - 50 mg PO BEDTIME PRN 10/10/20 06/14/21 Unknown History lisinopril 10 1 tab PO QAM 10/10/20 06/14/21 06/14/21 History mg-hydrochlorothiazide 12.5 mg tablet metformin 500 mg tablet,extended 1,000 mg PO DAILY 10/10/20 06/14/21 06/14/21 History release 24 hr pantoprazole 40 mg tablet,delayed 40 mg PO DAILY 10/10/20 06/14/21 06/14/21 History release (Protonix) testosterone cypionate 200 mg/mL 200 mg IM Q30D 10/10/20 06/14/21 05/10/21 History intramuscular oil citalopram 40 mg tablet mg 06/14/21 Unknown History Allergies Allergy/AdvReac Type Severity Reaction Status Date / Time Sulfa (Sulfonamide Allergy rash Verified 05/25/21 13:30 Antibiotics) [facility] Anesthesia Medical History Diabetes Hypertension Severe sleep apnea Social History Smoking and tobacco status: former smoker Alcohol intake: never History of recent travel: Yes Data Anesthesia Cardiac Studies: No Data to Display
[2021-06-21] VITALS (16 sets, daily range): BP systolic 117–135; BP diastolic 53–76; PULSE 56–77; RESP 14–23; TEMP 35.9–36.4; O2SAT 91–99
--- NOTE | 2021-06-21 | SCC_ITS ---
Procedure done: 1. L3/4 laminectomy with partial facetectomy 2. L4/5 laminectomy with partial facetectomy 20.1 seconds of fluoroscopic guidance, for a cumulative dose of 13.01 mGy, was provided to Dr. Esteban by the radiology department. C-arm images of the lumbar spine were saved for the patient's permanent record. [facility]
--- NOTE | 2021-06-21 | XR_ITS ---
WS: [id number] XR lumbar spine 1V [id number] REASON FOR EXAM: spinal stenosis, lumbar region FINDINGS: Surgical device initially overlies the left L4-L5 disc space. The device then overlies the left L3-L4 disc space. XR/XR lumbar spine 1V [id number] IMPRESSION: Localization within the lumbar spine during surgery.
[2021-06-21] MEDS: sodium chloride 0.9% 1,000 ML 30 ML IV (08:23)
--- NOTE | 2021-06-21 09:52 | P.ANESUD_ITS ---
Pre-Anesthetic Update Pre-Anesthetic Assessment: Date of Surgery/Procedure: 06/21/21 Preop Amanda gnosis: Lumbar stenosis with neurogenic claudication Proposed Procedure: Operation Date: 06/21/21 08:45 Proposed Procedures p Lumbar Spine Decompression L3/4,L4/5 68990/36921/M48.062(Not Applicable) - Christiano Esteban, DO Any changes to Pre-Anesthetic Assessment?: No Last Intake: Intake Last Liquid Date 06/20/21 Last Liquid Time 23:20 Last Solid Date 06/20/21 Last Solid Time 23:20 Vitals: Temperature 97.5 F L 06/21/21 07:40 Temperature Source Temporal Artery S can 06/21/21 07:40 Pulse Rate 77 06/21/21 07:40 Respiratory Rate 18 06/21/21 07:40 Blood Pressure 129/63 06/21/21 07:40 Blood Pressure Alissa n 85 06/21/21 07:40 Pulse Oximetry 92 06/21/21 07:40 Oxygen Delivery Me thod 06/21/21 07:59 Exam: Pre-Anes Outpt Exam: alert, oriented x 3, clear to auscultation bilaterally and regular rate & rhythm Cardiac Studies: No Data to Display
--- NOTE | 2021-06-21 11:07 | W.PM.OPSUD ---
Surgery/Procedure H&P Update DATE OF PROCEDURE: June 21, 2021 DATE H&P PERFORMED: 05/25/21 H&P UPDATE INFORMATION: I have reviewed H&P completed within last 30 days, I have examined patient prior to procedure and No changes to prior documentation PREOP DIAGNOSIS: Lumbar stenosis with neurogenic claudication PLANNED PROCEDURE: Operation Date: 06/21/21 08:45 Proposed Procedures p Lumbar Spine Decompression L3/4,L4/5 40279/50538/M48.062(Not Applicable) - Christiano Esteban DO
--- NOTE | 2021-06-21 13:38 | PM.OP ---
Operative Report Date of procedure: June 21, 2021 Pre-op diagnosis: Preop Diagnosis Lumbar stenosis with neurogenic claudication Post-op diagnosis: same Procedure done: 1. L3/4 laminectomy with partial facetectomy 2. L4/5 laminectomy with partial facetectomy Surgeon: Christiano Esteban Infrastructure Project Manager: Logan Martinez Estimated blood loss (mL): 10 Procedure: 1. L3/4 laminectomy with partial facetectomy 2. L4/5 laminectomy with partial facetectomy Patient is brought to the operative suite. After undergoing anesthesia they are placed in the prone position. All areas of impingement are well padded. Patient is then prepped and draped in the normal sterile fashion. A skin incision is made over the L3/4 level. This is confirmed under c-arm guidance. A series of dilators are passed and the tubular retractor is docked on the L3 lamina. A bovie is used to clear the soft tissue off the lamina and the L 3/4 facet joint. A high speed radha is then used to perform the laminectomy and take down the medial aspect of the L 3/4 facet joint. A kerrison rongeure was then used to take down the remaining lamina and smooth the edge of the laminectomy up to the point where the ligamentum flavum attaches. Attention was then brought to the medial aspect of the facet joint. The remaining medial aspect of the superior and inferior aspect of the facet joint were taken down with the kerrison from the pedicle of L3 to L 4. The facet joint had significant hypertrophy. Attention was then brought to the Ligamentum Flavum. The ligament was taken down from the lamina of L3 to L4 and out medially to the remaining facet joint. The ligament was thick. The dura was then exposed. The dura was in good repair. The L3 nerve was then traced with a curette out the L3/4 foramen and found to be adequately decompressed. The L4 nerve was traced with a curette around the L4 pedicle. The lateral recess was opened with a kerrison helping to further decompress the L4 nerve. Wound is then irrigated copiously with saline and surgiflo is used to stop any bleeding. The tubular retractor is removed and A skin incision is made over the L4/5 level. This is confirmed under c-arm guidance. A series of dilators are passed and the tubular retractor is docked on the L4 lamina. A bovie is used to clear the soft tissue off the lamina and the L 4/5 facet joint. A high speed radha is then used to perform the laminectomy and take down the medial aspect of the L 4/5 facet joint. A kerrison rongeure was then used to take down the remaining lamina and smooth the edge of the laminectomy up to the point where the ligamentum flavum attaches. Attention was then brought to the medial aspect of the facet joint. The remaining medial aspect of the superior and inferior aspect of the facet joint were taken down with the kerrison from the pedicle of L4 to L 5. The facet joint had significant hypertrophy. Attention was then brought to the Ligamentum Flavum. The ligament was taken down from the lamina of L4 to L5 and out medially to the remaining facet joint. The ligament was thick. The dura was then exposed. The dura was in good repair. The L4 nerve was then traced with a curette out the L4/5 foramen and found to be adequately decompressed. The L5 nerve was traced with a curette around the L5 pedicle. The lateral recess was opened with a kerrison helping to further decompress the L5 nerve. Wound is then irrigated copiously with saline and surgiflo is used to stop any bleeding. The tubular retractor is removed and the wound is closed with vicryl and monocryl suture. Glue is then used to protect the wound. A sterile dressing is then placed. Patient was then placed in the supine position and transferred to the PACU in stable condition.
--- NOTE | 2021-06-21 13:46 | SUR.PHASEI ---
1343 PT CARE ASSUMED, PT UP IN BED HOB AT 45 DEGREES, PT AWAKES AND FOLLOWS COMMAND, LOWER BACK DRESSING D/I PT ID BRACELET TO LT WRIST, PT ID'D WITH 2 IDENTIFIERS, IV TO RT HAND #18 NS UP 700ML AT KVO RATE PER GRAVITY, PT PLACED ON 3LNC , SATS QUICKLY UP TO 92@ PT SNORING BUT NO DISTRESS NOTED , GOOD AIRMOVEMENT NOTED.
[2021-06-21] MEDS: HYDROmorphone 1 mg/mL INJ 1 mL 0.5 MG IVP (14:08)
--- NOTE | 2021-06-21 15:51 | PC.NURSE ---
Patient very lethargic following PACU recovery. Able to wake with minimal stimulation with room air Osats in mid to high 90's, but very drowsy with Osats in mid 80's with minimal stimulation. 2 LO2 applied for duration of phase II. Patient seen by Dr. Alonso who believes him awake enough to be discharged at this time. Patient also had bleeding through his lowerback bandage, Dr. Esteban informed. Orders to redress the wound with pressure 4x4 and foam tape given. Patient also instructed to return to Dr. Esteban's office on 06/22/21 for inspection and redressing of the the Sx wound.
--- NOTE | 2021-06-21 17:10 | ANE.PACU2 ---
Inpatient post-anesthesia follow up: Airway intact: Yes Vital signs: Temperature 96.7 F Pulse Rate 61 Respiratory Rate 18 Blood Pressure 121/72 Pulse Oximetry 94 Oxygen Delivery Me thod Nasal Cannula Oxygen Flow Rate 2 Fraction of Inspir ed Oxygen Hydration adequate: Yes Nausea and vomiting: No Pain level: 2 Mental status: Baseline
== END 2021-06-21 15:47 | disposition home or self-care (01) ==
PROVIDERS: PCP Family Medicine; Visit Provider Orthopaedic Surgery
PROC: (CPT 63005; principal; 2021-06-21 08:45)
DX: M48.062 Spinal stenosis, lumbar region with neurogenic claudication (principal); I10 Essential (primary) hypertension; E66.01 Morbid (severe) obesity due to excess calories; Z68.38 Body mass index [BMI] 38.0-38.9, adult; E11.40 Type 2 diabetes mellitus with diabetic neuropathy, unspecified; G47.30 Sleep apnea, unspecified; Z87.891 Personal history of nicotine dependence
CPT/HCPCS: 63047; 63048; 72020; 76000; J0690; J1100; J1170; J2370; J2405; J2704; J2710; J3010; J3490; J7030

== ENCOUNTER → 2021-06-22 09:01 | Outpatient (BNVA) | payer OTHER, MEDICAID, SELFPAY | PROVIDERS: PCP Family Medicine; Visit Provider Orthopaedic Surgery | DX: Z47.89 Encounter for other orthopedic aftercare (principal) ==

== ENCOUNTER → 2021-07-06 10:20 | Outpatient (BNVA) | payer OTHER, MEDICAID, SELFPAY | PROVIDERS: PCP Family Medicine; Visit Provider Physician Assistant | DX: Z47.89 Encounter for other orthopedic aftercare (principal); Z98.890 Other specified postprocedural states | CPT/HCPCS: 99024 ==

== ENCOUNTER → 2021-12-19 07:59 | Outpatient (BNVA) | payer MEDICAID, SELFPAY | PROVIDERS: PCP Family Medicine; Visit Provider Physician Assistant | DX: M47.22 Other spondylosis with radiculopathy, cervical region (principal); M48.02 Spinal stenosis, cervical region | CPT/HCPCS: 72050 ==

== ENCOUNTER 2022-01-19 08:02 | Outpatient (CLI) | payer MEDICAID, SELFPAY ==
--- NOTE | 2022-01-19 07:15 | MR_ITS ---
WS: [id number] MRI CERVICAL SPINE NONCONTRAST HISTORY: Neck pain with bilateral arm pain and tingling. COMPARISON: 03/14/2020 Technique: Multiplanar, multisequence noncontrast imaging of the cervical spine. Straightening of the normal cervical lordosis similar to the prior study. Signal within the cervical cord is normal. Visualized posterior fossa is unremarkable. Craniocervical junction, C1 and C2 relationship, odontoid process and soft tissues are normal. C2-C3: Normal. C3-C4: Moderate LEFT foraminal stenosis. Progressed since the prior exam. C4-C5: Small central disc protrusion causing effacement and deformity of the ventral cord and thecal sac. Mild facet joint arthritis. Mild central and bilateral foraminal stenosis. LEFT slightly greater than RIGHT. Similar to the prior study. C5-C6: Diffuse osteophytic ridging and annular disc bulging. Disc contacts the ventral thecal sac and extends RIGHT paracentral. Mild to moderate central and RIGHT foraminal stenosis. Mild LEFT foramina l stenosis. C6-C7: Mild annular disc bulging and facet arthritis. No significant stenosis. C7-T1: Normal. Paraspinal soft tissue are normal. MR/MR cervical spin wo con* [id number] IMPRESSION: 1. Mild straightening of the normal cervical lordosis. Normal signal within th e cord. 2. Mild to moderate central and RIGHT foraminal stenosis at C5-6 due to disc o steophyte disease. Mild LEFT foraminal stenosis. There is very minimal progress ion since the prior study. 3. Moderate LEFT foraminal stenosis at C3-4. 4. Mild central and bilateral foraminal stenosis at C4-5, LEFT greater than RI GHT.
== END 2022-01-19 08:03 | disposition home or self-care (01) ==
LOC: RAD 08:03
PROVIDERS: PCP Family Medicine; Visit Provider Physician Assistant
DX: M48.02 Spinal stenosis, cervical region (principal)
CPT/HCPCS: 72141

== ENCOUNTER → 2022-03-14 06:00 | Day surgery (SDC) | payer MEDICAID, SELFPAY ==
--- NOTE | 2022-03-14 14:17 | ANES.PREANE2 ---
Pre-Anesthetic Assessment Height/Weight: Height 1.8 m Preop Diagnosis: Lumbar stenosis with neurogenic claudication ACDF Familial anesthetic complications: none Was Beta Erickson taken within 24 hours: N/A Was Clonidine taken within 24 hours: N/A Social Tobacco and No alcohol Exam alert, oriented x 3 and regular rate & rhythm rhonchi Airway Submandibular: within normal limits Cervical ROM: within normal limits (no symptoms with ROM) Mallampati: Class II Dentition: chipped Pulmonary Chronic Obstructive Pulmonary Disease CV/HEM Hypertension GI Gastroesophageal Reflux Disease Metabolic Diabetes Mellitus and Morbid Obesity [facility] Lower Back Pain and Osteoarthritis/DJD Neuropsych Neuropathy Anesthetic Plan ASA status: 3 Anesthesia: General Medications/Allergies Home Medications Medication Instructions Recorded Confirmed Last Taken Type loratadine 10 mg tablet (Claritin) 10 mg PO BEDTIME 05/26/19 03/14/22 03/13/22 History Bone Growth Stimulator [id number] #1 ea 06/13/20 01/23/22 Unknown Rx cetirizine 10 mg tablet (Zyrtec) 10 mg PO QAM 10/10/20 03/14/22 03/14/22 History glimepiride 4 mg tablet 4 mg PO QAM 10/10/20 03/14/22 03/14/22 History hydroxyzine HCl 25 mg tablet 25 - 50 mg PO BEDTIME PRN Itching 10/10/20 03/14/22 03/13/22 History lisinopril 10 1 tab PO QAM 10/10/20 03/14/22 03/14/22 History mg-hydrochlorothiazide 12.5 mg tablet metformin 500 mg tablet,extended 1,000 mg PO DAILY 10/10/20 03/14/22 03/14/22 History release 24 hr pantoprazole 40 mg tablet,delayed 40 mg PO DAILY 10/10/20 03/14/22 03/14/22 History release (Protonix) testosterone cypionate 200 mg/mL 200 mg IM Q30D 10/10/20 03/14/22 03/09/22 History intramuscular oil citalopram 40 mg tablet 40 mg PO 1XD 06/14/21 03/14/22 03/14/22 History dulaglutide 3 mg/0.5 mL See Rx Instructions .Route .COMPLEX 12/03/21 03/14/22 03/09/22 History subcutaneous pen injector (Trulicity) varenicline 1 mg tablet 1 mg PO BID 03/14/22 Unknown History Allergies Allergy/AdvReac Type Severity Reaction Status Date / Time Sulfa (Sulfonamide Allergy rash Verified 03/14/22 09:29 Antibiotics) [facility] Anesthesia Medical History Diabetes Hypertension Severe sleep apnea Social History Smoking and tobacco status: former smoker Alcohol intake: never History of recent travel: Yes Data Anesthesia Cardiac Studies: No Data to Display
--- NOTE | 2022-03-14 16:37 | ECG_ITS ---
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 Measurements Intervals [place] Rate: 78 P: -13 NC: 167 QRS: 127 QRSD: 106 T: 99 QT: 347 QTc: 397 Interpretive Statements SINUS RHYTHM INDETERMINATE AXIS LEFT POSTERIOR FASCICULAR BLOCK [QRS AXIS > 109, INFERIOR Q] INFERIOR MYOCARDIAL INFARCTION , PROBABLY OLD [40+ ms Q WAVE AND/OR ST/T ABNORMALITY IN II/aVF] No previous ECG available for comparison Electronically Signed On 03-14-2022 16:53:12 IMCU SPECIALIST by Nj Melendez M.D. [email or web address] [id number]
== END ==
PROVIDERS: PCP Family Medicine; Visit Provider Orthopaedic Surgery
DX: Z01.818 Encounter for other preprocedural examination (principal)
CPT/HCPCS: 80048; 93005

== ENCOUNTER → 2022-04-30 08:07 | Outpatient (BNVA) | payer MEDICAID, SELFPAY | PROVIDERS: PCP Family Medicine; Visit Provider Specialist | DX: M65.321 Trigger finger, right index finger (principal); M65.331 Trigger finger, right middle finger; M65.341 Trigger finger, right ring finger; M65.311 Trigger thumb, right thumb; Z22.322 Carrier or suspected carrier of Methicillin resistant Staphylococcus aureus | CPT/HCPCS: 73130 ==

== ENCOUNTER 2022-05-11 06:55 | Day surgery (SDC) | payer MEDICAID, SELFPAY ==
[2022-05-10 10:35] VITALS: BMI 38.5
[2022-05-11] VITALS (9 sets, daily range): BP systolic 112–146; BP diastolic 60–86; PULSE 71–95; RESP 14–18; TEMP 36.1–36.5; O2SAT 92–99
--- NOTE | 2022-05-11 07:31 | ANES.PREANE2 ---
Pre-Anesthetic Assessment Height/Weight: Height 1.8 m Weight 125.191 kg Temp Pulse Resp BP Pulse Ox O2 Del Method 97.0 F L 71 17 146/77 95 05/11/22 07:16 05/11/22 07:16 05/11/22 07:16 05/11/22 07:16 05/11/22 07:16 05/11/22 07:20 Preop Diagnosis: Trigger finger right index, middle, ring, and thumb Operation Date: 05/11/22 08:25 Proposed Procedures p RIGHT THUMB, INDEX, MIDDLE, AND RING FINGER TRIGGER FINGER RELEASE [id number],M65.30(Right) - Elizabeth Holland MD Familial anesthetic complications: None Was Beta Erickson taken within 24 hours: N/A Was Clonidine taken within 24 hours: N/A Last intake: Intake Last Liquid Date 05/10/22 Last Liquid Time 21:00 Last Solid Date 05/10/22 Last Solid Time 21:00 Social Tobacco and No alcohol Exam alert, oriented x 3, clear to auscultation bilaterally and regular rate & rhythm Airway Mallampati: Class II Dentition: chipped Pulmonary Sleep Apnea CV/HEM Hypertension GI Gastroesophageal Reflux Disease Metabolic Diabetes Mellitus and Morbid Obesity Anesthetic Plan ASA status: 3 Anesthesia: General Risk of > 500 ml blood loss (7ml/kg in children): No Medications/Allergies Home Medications Medication Instructions Recorded Confirmed Last Taken Type loratadine 10 mg tablet (Claritin) 10 mg PO BEDTIME 05/26/19 05/11/22 05/10/22 History Bone Growth Stimulator [id number] #1 ea 06/13/20 04/30/22 Unknown Rx cetirizine 10 mg tablet (Zyrtec) 10 mg PO QAM 10/10/20 05/11/22 05/10/22 History glimepiride 4 mg tablet 4 mg PO QAM 10/10/20 05/11/22 05/10/22 History hydroxyzine HCl 25 mg tablet 25 - 50 mg PO BEDTIME PRN Itching 10/10/20 05/11/22 05/10/22 History lisinopril 10 1 tab PO QAM 10/10/20 05/11/22 05/10/22 History mg-hydrochlorothiazide 12.5 mg tablet metformin 500 mg tablet,extended 500 mg PO BID 10/10/20 05/11/22 05/10/22 History release 24 hr pantoprazole 40 mg tablet,delayed 40 mg PO DAILY 10/10/20 05/11/22 05/10/22 History release (Protonix) testosterone cypionate 200 mg/mL 200 mg IM Q15D 10/10/20 05/11/22 05/04/22 History intramuscular oil citalopram 40 mg tablet 40 mg PO 1XD 06/14/21 05/11/22 05/10/22 History varenicline 1 mg tablet 1 mg PO BID 03/14/22 05/11/22 05/10/22 History doxycycline hyclate 100 mg capsule 100 mg PO BID 14 days #28 caps 04/30/22 05/11/22 05/10/22 Rx dulaglutide 3 mg/0.5 mL See Rx Instructions .Route .COMPLEX 05/10/22 05/11/22 05/10/22 History subcutaneous pen injector (Trulicity) Allergies Allergy/AdvReac Type Severity Reaction Status Date / Time Sulfa (Sulfonamide Allergy rash Verified 05/11/22 07:09 Antibiotics) PFSH Anesthesia Medical History Diabetes Hypertension Severe sleep apnea Social History Smoking and tobacco status: former smoker Alcohol intake: never Data Anesthesia Cardiac Studies: No Data to Display
[2022-05-11] MEDS: acetaminophen 1,000 MG/100 ML PIGGYBACK 400 MG IV (07:35)
[2022-05-11] MEDS: CELEcoxib 200 mg Capsule 400 MG PO (07:37)
[2022-05-11] MEDS: sodium chloride 0.9% 1,000 ML 30 ML IV (07:50)
--- NOTE | 2022-05-11 07:56 | W.PM.OPSUD ---
Surgery/Procedure H&P Update DATE OF PROCEDURE: May 11, 2022 DATE H&P PERFORMED: 04/30/22 H&P UPDATE INFORMATION: I have reviewed H&P completed within last 30 days, I have examined patient prior to procedure, No changes to prior documentation and H[place] is [place] [facility] [place] on date indicated PREOP DIAGNOSIS: Trigger finger right index, middle, ring, and thumb PLANNED PROCEDURE: Operation Date: 05/11/22 08:25 Proposed Procedures p RIGHT THUMB, INDEX, MIDDLE, AND RING FINGER TRIGGER FINGER RELEASE [id number],M65.30(Right) - Elizabeth Holland MD Related Problem List Diagnoses (1) Trigger finger, right ring finger: (2) Trigger middle finger of right hand: (3) Trigger finger, right index finger: (4) Trigger finger of right thumb:
[2022-05-11] MEDS: vancomycin 1,000 MG in sodium chloride 0.9% 250 ML 250 MG IV (07:59)
--- NOTE | 2022-05-11 09:23 | PM.OP ---
Operative Report Date of procedure: May 11, 2022 Pre-op diagnosis: Trigger finger right index, middle, ring, and thumb Post-op diagnosis: Trigger finger right index, middle, ring, and thumb Procedure done: Right hand release trigger finger index, middle, ring, and thumb Pathology: none sent Surgeon: Elizabeth Holland [employer] [facility] Specialists: None Anesthesia: General (Per LMA, ASA 3) Estimated blood loss (mL): 3 Tourniquet time (min): 47 (At 250 mmHg) IV fluids (mL): 500 Urine output (mL): 0 (No Ortiz) Complications: None Findings: Thickened A1 pulleys and flexor tendons Condition: stable Disposition: PACU (Then return to same-day surgery for discharge to home) Brief History: This is an established 51 year old male patient here today for evaluation of release of triggering of his index, long and ring finger of his right hand. He explains his long finger is worse than the others. He states he has noticed this for a few months. He reports a sharp pain along his thumb as well over the A1 yo. He states his fingers lock up and pop causing him pain. He reports difficulty bending his digits. He states he was evaluated at [facility] where he received a cortisone injections in his right hand. He states the injection did not help. He reports a surgical history of a right carpal tunnel release by Dr. Holland DOS:04/07/21 and a left carpal tunnel release DOS:05/12/[address] Holland. Today, the patient presents for the above procedure. Risks and complications are discussed with him preoperatively in the clinic. Consents were signed and questions were answered. Procedure: Patient was brought to the operating theater. He was placed on the operating room table. General anesthetic per LMA was administered, ASA 3. A tourniquet was placed high on the arm, and the arm was exsanguinated prior to elevation. Tourniquet time was 47 minutes at 250 mmHg. Surgical pause was performed prior to commencement of the surgical procedure. At the time of the surgical pause we identified the site and side of surgery as well as equipment availability. We also confirmed the patient's identity and appropriate administration of IV antibiotics, vancomycin, secondary to history of MRSA. Following the surgical pause, an incision was made initially along the distal palmar crease beneath the index, long, and ring fingers with second incision made along the metacarpal phalangeal crease of the thumb following surgical release of the index long and ring fingers and closure of that wound. Dissection continued through the skin to the subcutaneous tissues using a scalpel. Blunt dissection was then utilized to spread soft tissues and allow access to the A1 yo. Each A1 yo was identified. It was then incised longitudinally and sharply using a knife. This was accomplished without difficulty and atraumatically. Once the A1 pulleys were released, tendons were brought up out of the wound and evaluated. There were no gross masses on the tendons or other issues of concern. Tendons were returned to normal position. We then irrigated the wound and subsequently closed it with 3-0 nylon with an interrupted mattress type suture. Following closure of the wound, the wound was injected with bupivacaine into the subcutaneous tissues as a local anesthetic. After the palm incision had been irrigated and closed, attention was directed to the base of the thumb. Similarly, incision was made through the skin. Subcutaneous tissues were dissected using scissors. The A1 yo was identified and was incised longitudinally. Once this was accomplished, tendons were again evaluated as noted above. They were returned to normal position and this wound was irrigated and closed once again with 3-0 nylon. Bupivacaine was injected as a local anesthetic as well. Tourniquet was released after 47 minutes at 250 mmHg. Both wounds were closed with Dermabond in addition to sutures. Sterile dressing was then placed consisting of OpSite, fluffed fluffs, sterile soft roll, and an Thai wrap. The patient was returned to recovery in satisfactory condition. He will be discharged home to follow-up with me in the office. There were no complications and no specimens. Related Problem List Diagnoses (1) Trigger finger, right ring finger: (2) Trigger middle finger of right hand: (3) Trigger finger, right index finger: (4) Trigger finger of right thumb:
--- NOTE | 2022-05-11 11:38 | ANE.PACU2 ---
Inpatient post-anesthesia follow up: Airway intact: Yes Vital signs: Temperature 97.6 F Pulse Rate 73 Respiratory Rate 18 Blood Pressure 124/78 Pulse Oximetry 94 Oxygen Delivery Me thod Room Air Oxygen Flow Rate 6 Fraction of Inspir ed Oxygen Hydration adequate: Yes Nausea and vomiting: No Pain level: 1 Mental status: Baseline
[2022-05-11 11:42] LABS: Glucose Point of Care 159 mg/dL (70-110)
== END 2022-05-11 10:10 | disposition home or self-care (01) ==
PROVIDERS: PCP Family Medicine; Visit Provider Specialist
PROC: (CPT 26055; principal; 2022-05-11 08:15)
DX: M65.321 Trigger finger, right index finger (principal); M65.341 Trigger finger, right ring finger; M65.331 Trigger finger, right middle finger; M65.311 Trigger thumb, right thumb; G47.33 Obstructive sleep apnea (adult) (pediatric); I10 Essential (primary) hypertension; K21.9 Gastro-esophageal reflux disease without esophagitis; E11.9 Type 2 diabetes mellitus without complications; E66.01 Morbid (severe) obesity due to excess calories; Z68.38 Body mass index [BMI] 38.0-38.9, adult; Z79.84 Long term (current) use of oral hypoglycemic drugs; Z87.891 Personal history of nicotine dependence; Z22.322 Carrier or suspected carrier of Methicillin resistant Staphylococcus aureus
CPT/HCPCS: 26055 ×4; 36416; 82962; A4216; J0131; J2405; J2704; J3010; J3370; J3490; J7030; J7050

== ENCOUNTER → 2022-07-10 08:54 | Outpatient (BNVA) | payer MEDICAID, SELFPAY | PROVIDERS: PCP Family Medicine; Visit Provider Physician Assistant | DX: M47.22 Other spondylosis with radiculopathy, cervical region (principal); M48.02 Spinal stenosis, cervical region | CPT/HCPCS: 36415; 80053; 85007; 85025 ==

== ENCOUNTER 2022-07-23 14:59 | Inpatient (IN) | payer MEDICAID, SELFPAY ==
[2022-07-19 08:58] VITALS: BMI 37.2
--- NOTE | 2022-07-19 09:14 | P.ANESASSM_ITS ---
Pre-Anesthetic Assessment Height/Weight: Height 1.8 m Weight 121.109 kg Operation Date: 07/23/22 11:50 Proposed Procedures p C4-5 C5-6 C6-7 ACDF:[id number],36236,M47.22,M48.02(Not Applicable) - Christiano Esteban, Familial anesthetic complications: None Social Tobacco and No alcohol Exam alert, oriented x 3, clear to auscultation bilaterally and regular rate & rhythm Airway Mallampati: Class III Dentition: full Comments: Comments: front tooth ground down from bruxism Pulmonary Sleep Apnea GI Gastroesophageal Reflux Disease Metabolic Diabetes Mellitus and Morbid Obesity Anesthetic Plan ASA status: 3 Anesthesia: General Risk of > 500 ml blood loss (7ml/kg in children): No Medications/Allergies Home Medications Medication Instructions Recorded Confirmed Last Taken Type loratadine 10 mg tablet (Claritin) 10 mg PO BEDTIME 05/26/19 07/19/22 07/19/22 History Bone Growth Stimulator [id number] #1 ea 06/13/20 07/10/22 Unknown Rx cetirizine 10 mg tablet (Zyrtec) 10 mg PO QAM 10/10/20 07/19/22 07/19/22 History glimepiride 4 mg tablet 4 mg PO QAM 10/10/20 07/19/22 07/19/22 History hydroxyzine HCl 25 mg tablet 25 - 50 mg PO BEDTIME PRN Itching 10/10/20 07/19/22 07/19/22 History lisinopril 10 1 tab PO QAM 10/10/20 07/19/22 07/19/22 History mg-hydrochlorothiazide 12.5 mg tablet metformin 500 mg tablet,extended 500 mg PO BID 10/10/20 07/19/22 07/19/22 History release 24 hr pantoprazole 40 mg tablet,delayed 40 mg PO DAILY 10/10/20 07/19/22 07/13/22 History release (Protonix) testosterone cypionate 200 mg/mL 200 mg IM Q15D 10/10/20 07/19/22 07/06/22 History intramuscular oil citalopram 40 mg tablet 40 mg PO 1XD 06/14/21 07/19/22 07/19/22 History varenicline 1 mg tablet 1 mg PO BID 03/14/22 07/19/22 07/19/22 History dulaglutide 3 mg/0.5 mL 3 mg SUBCUT 6XD 05/10/22 07/19/22 07/13/22 History subcutaneous pen injector (Trulicity) Allergies Allergy/AdvReac Type Severity Reaction Status Date / Time Sulfa (Sulfonamide Allergy rash Verified 07/17/22 11:44 Antibiotics) [facility] Anesthesia Medical History Diabetes Hypertension Severe sleep apnea Tobacco dependence Surgical History Carpal tunnel syndrome, left History of back surgery Trigger finger, right index finger Trigger finger, right ring finger Family History Denies family history of Clotting disorder Anesthesia complication Bleeding disorder Social History Smoking and tobacco status: current every day smoker cigarettes [ Other cigarette details: working on cutting back ] Alcohol intake: never Substance/Drug Use: never Data Anesthesia Cardiac Studies: No Data to Display
[2022-07-23] VITALS (22 sets, daily range): BP systolic 98–165; BP diastolic 54–88; PULSE 59–92; RESP 16–22; TEMP 36.1–36.7; O2SAT 90–97
--- NOTE | 2022-07-23 | XR_ITS ---
WS: [id number] XR cervical spine 3V* [id number] REASON FOR EXAM: C4/5; C5/6; C6/7 ACDF, OR PIC FINDINGS: Anterior plate and screw fixation C4-C7. Interbody fusion devices or corpectomy device not identifiable. Extensive overlying artifact on the l ateral views. XR/XR cervical spine 3V* [id number] IMPRESSION: Anterior cervical fusion as above.
[2022-07-23 10:05] LABS: Glucose Point of Care 242 mg/dL (70-110)
[2022-07-23] MEDS: sodium chloride 0.9% 1,000 ML 30 ML IV (10:05)
--- NOTE | 2022-07-23 10:32 | W.PM.OPSUD ---
Surgery/Procedure H&P Update DATE OF PROCEDURE: July 23, 2022 DATE H&P PERFORMED: 07/10/22 H&P UPDATE INFORMATION: I have reviewed H&P completed within last 30 days, I have examined patient prior to procedure and No changes to prior documentation PREOP DIAGNOSIS: Cervical spondylosis with radiculopathy PLANNED PROCEDURE: Operation Date: 07/23/22 11:50 Proposed Procedures p C4-5 C5-6 C6-7 ACDF:[id number],M47.22,M48.02(Not Applicable) - Christiano Esteban DO
[2022-07-23] MEDS: ceFAZolin 2,000 MG in sodium chloride 0.9% (plus) 50 ML 100 MG IV ×2 (11:11→17:45)
[2022-07-23] MEDS: lidocaine-epi 2% 20 mL INJ INJECTION (11:43)
--- NOTE | 2022-07-23 13:39 | P.OP_ITS ---
Operative Report Date of procedure: July 23, 2022 Pre-op diagnosis: Preop Diagnosis Cervical spondylosis with radiculopathy Post-op diagnosis: same Procedure done: 1. Anterior diskectomy C4/5 2. Anterior diskectomy C5/6 3. Anterior discectomy C6/7 4. Insertion of cage C4/5 5. Insertion of cage C5/6 6. Insertion of Cage C6/7 7. Instrumentation with anterior plate from C4-C7 8. Use of allograft Surgeon: Christiano Esteban Marketing Specialist: Logan Martinez Marketing Specialist: The surgical product sales consultant, Logan Martinez, PAC was needed for his expertise under the microscope. He was important and necessary throughout the procedure to complete in a safe and timely manner. He assisted with patient positioning prepping and draping tissue retraction suctioning of the operative field protection of the dural sac and tissue closure Estimated blood loss (mL): 50 Procedure: 1. Anterior diskectomy C4/5 2. Anterior diskectomy C5/6 3. Anterior discectomy C6/7 4. Insertion of cage C4/5 5. Insertion of cage C5/6 6. Insertion of Cage C6/7 7. Instrumentation with anterior plate from C4-C7 8. Use of allograft The patient was taken to the operating room, where he underwent general endotracheal anesthesia without complications. He was then positioned supine on the operating table, and all areas of impingement were well padded. The arms were carefully padded and tucked at his sides. A roll was placed between the shoulder blades.. An x-ray was done to determine the appropriate level for the skin incision. The entire neck was then sterilely prepped and draped in the usual fashion. Neuromonitoring was attached prior to prepping. A transverse skin incision was made and carried down to the platysma muscle. This was then split in line with its fibers. Blunt dissection was carried down medial to the carotid sheath and lateral to the trachea and esophagus until the anterior cervical spine was visualized. A needle was placed into a disc and an x-ray was done to determine its location. The longus colli muscles were then elevated bilaterally with the electrocautery unit. Self-retaining retractors were placed deep to the longus colli muscle. Attention was brought to the C4/5 level that was confirmed on x-ray. A caspar pin was placed into the C4 vertebrae and the C5 vertebrae. The disk space was then distracted. The microscope was then brought in. A radical anterior discectomies were performed at C4/5. This included complete removal of the anterior annulus, nucleus, and posterior annulus. The posterior longitudinal ligament was removed as were the posterior osteophytes. Foraminotomies were then accomplished bilaterally. This was done using a high speed radha, kerrison rongeurs and curretes Once all of this was accomplished, the curved currette was used to check for any residual compression. The central canal was wide open as were the foramen. A high-speed bur was used to remove the cartilaginous endplates above and below the interspace. Bleeding cancellous bone was exposed. The disc space were measured and appropriate size cage were placed sterilely onto the field. Allograft graft was packed into the cages. The cage was then placed and there was good juxtaposition against the bleeding decorticated surfaces and good distraction of each interspace. Attention was brought to the next interspace. The [place] pins were removed. Bone wax was used to prevent any bleeding from occurring at the pin sites. Attention was brought to the C5/6 level that was confirmed on x-ray. A caspar pin was placed into the C5 vertebrae and the C6 vertebrae. The disk space was then distracted. The microscope was then brought in. A radical anterior discectomies were performed at C5/6. This included complete removal of the anterior annulus, nucleus, and posterior annulus. The posterior longitudinal ligament was removed as were the posterior osteophytes. Foraminotomies were then accomplished bilaterally. This was done using a high speed radha, kerrison rongeurs and curretes Once all of this was accomplished, the curved currette was used to check for any residual compression. The central canal was wide open as were the foramen. A high-speed bur was used to remove the cartilaginous endplates above and below the interspace. Bleeding cancellous bone was exposed. The disc space were measured and appropriate size cage were placed sterilely onto the field. Allograft graft was packed into the cages. The cage was then placed and there was good juxtaposition against the bleeding decorticated surfaces and good distraction of each interspace. Attention was brought to the next interspace. The [place] pins were removed. Bone wax was used to prevent any bleeding from occurring at the pin sites. Attention was brought to the C6/7 level that was confirmed on x-ray. A caspar pin was placed into the C6 vertebrae and the C7 vertebrae. The disk space was then distracted. The microscope was then brought in. A radical anterior disc ectomies were performed at C6/7. This included complete removal of the anterior annulus, nucleus, and posterior annulus. The posterior longitudinal ligament was removed as were the posterior osteophytes. Foraminotomies were then accomplished bilaterally. This was done using a high speed radha, kerrison rongeurs and curretes Once all of this was accomplished, the curved currette was used to check for any residual compression. The central canal was wide open as were the foramen. A high-speed bur was used to remove the cartilaginous endplates above and below the interspace. Bleeding cancellous bone was exposed. The disc space were measured and appropriate size cage were placed sterilely onto the field. Allograft graft was packed into the cages. The cage was then placed and there was good juxtaposition against the bleeding decorticated surfaces and good distraction of each interspace. Attention was brought to the next interspace. The [place] pins were removed. Bone wax was used to prevent any bleeding from occurring at the pin sites. The appropriate size anterior cervical locking plate was chosen and bent into gentle lordosis. Two screws were then placed into each of the vertebral bodies at C4,C5,C6 and C7. There was excellent purchase. A final x-ray was done confirming good position of the hardware and Cages. The locking screws were then applied, also with excellent purchase. Following a final copious irrigation, there was good hemostasis and no dural leaks. The carotid pulse was strong. The wounds were then closed in layers using 2-0 Vicryl suture for the platysma muscle, 2-0 Vicryl suture for the subcutaneous tissue, and 4-0 monocryl suture in a subcuticular skin closure. Glue was placed followed by application of a sterile dressing. The drain was hooked to bulb suction. A soft collar was applied. The patient was then carefully returned to the supine position on his hospital bed where he was reversed and extubated and taken to the recovery room having tolerated the procedure well.
--- NOTE | 2022-07-23 13:39 | P.ANESUD_ITS ---
Pre-Anesthetic Update Pre-Anesthetic Assessment: Date of Surgery/Procedure: 07/23/22 Preop Amanda gnosis: Cervical spondylosis with radiculopathy Proposed Procedure: Operation Date: 07/23/22 11:50 Proposed Procedures p C4-5 C5-6 C6-7 ACDF:[id number],[id number],11398,M47.22,M48.02(Not Applicable) - Christiano Esteban, DO Any changes to Pre-Anesthetic Assessment?: No Last Intake: Intake Last Liquid Date 07/22/22 Last Liquid Time 23:10 Last Solid Date 07/22/22 Last Solid Time 23:10 Vitals: Temperature 97.4 F L 07/23/22 09:55 Temperature Source Temporal Artery S can 07/23/22 09:55 Pulse Rate 92 07/23/22 09:55 Respiratory Rate 18 07/23/22 09:55 Blood Pressure 144/84 07/23/22 09:55 Blood Pressure Alissa n 104 07/23/22 09:55 Pulse Oximetry 95 07/23/22 09:55 Oxygen Delivery Me thod Room Air 07/23/22 09:55 Exam: Pre-Anes Outpt Exam: alert, oriented x 3, clear to auscultation bilate rally and regular rate & rhythm Cardiac Studies: No Data to Display
[2022-07-23] MEDS: fentaNYL 50 mcg/mL INJ 2mL IVP (14:35)
--- NOTE | 2022-07-23 14:40 | ANE.PACU2 ---
Inpatient post-anesthesia follow up: Airway intact: Yes Vital signs: Temperature 97 F Pulse Rate 70 Respiratory Rate 18 Blood Pressure 110/71 Pulse Oximetry 95 Oxygen Delivery Me thod Simple Mask Oxygen Flow Rate 6 Fraction of Inspir ed Oxygen Hydration adequate: Yes Nausea and vomiting: No Pain level: 4 Mental status: Altered (sedated)
[2022-07-23] MEDS: lactated ringers 1,000 ML 90 ML IV (15:33)
[2022-07-23 16:41] LABS: Glucose Point of Care 237 mg/dL (70-110)
[2022-07-23] MEDS: metformin XR 500 MG Tablet PO (17:45)
[2022-07-23] MEDS: HYDROcodone-acetaminophen 5-325 mg Tablet PO (17:45)
[2022-07-23] MEDS: docusate sodium 100 mg Capsule PO (17:45)
[2022-07-23 20:35] LABS: Glucose Point of Care 327 mg/dL (70-110)
[2022-07-24] MEDS: ceFAZolin 2,000 MG in sodium chloride 0.9% (plus) 50 ML 100 MG IV (01:39)
[2022-07-24] MEDS: lactated ringers 1,000 ML 90 ML IV (01:42)
[2022-07-24 03:29] VITALS: BP 128/72; PULSE 70; RESP 16; TEMP 36.5; O2SAT 98
[2022-07-24] MEDS: cetirizine 10 mg Tablet PO (05:36)
[2022-07-24] MEDS: glimepiride 2 mg Tablet 4 MG PO (05:37)
[2022-07-24 06:37] LABS: Glucose Point of Care 240 mg/dL (70-110)
--- NOTE | 2022-07-24 07:00 | P.PN_ITS ---
Subjective Subjective: POD 1 Patient resting comfortably. Mild neck pain with mild swallowing discomfort. Arm pain has resolved. Denies shortness of breath, chest pain, headaches. Vitals/I&O/Wt Last Vital Signs Temp 97.7 F 07/24/22 03:29 Pulse 70 07/24/22 03:29 Resp 16 07/24/22 03:29 BP 128/72 07/24/22 03:29 Pulse Ox 98 07/24/22 03:29 O2 Del Method Room Air 07/24/22 03:29 O2 Flow Rate 2 07/23/22 18:30 07/23/22 07/24/22 07/24/22 22:59 06:59 14:59 Intake Total 466.5 / 716.5 913.5 / 1630.0 Output Total 280 / 405 Balance 466.5 / 591.5 633.5 / 1225.0 Physical Exam Narrative: Patient is alert and oriented x3 with a good general appearance normal mood and affect. Mildly tender with palpation about the incisional site. Incision appears to be clean and dry without signs of erythema or drainage. No signs of infection. Good motor strength throughout both upper extremities. Appears to fire in all motor groups with 5/5 strength. Hands are warm good cap refill in all digits. Normal sensation to light touch in all dermatomal areas. Urinary Catheter Management: Ortiz: Cath Placed During This Visit: yes, but has since been removed by the nurse Reason for Continuing Indwelling Catheter: Decision to DC Catheter Urinary Catheter Date of Insertion: 07/23/22 Urinary Catheter Time of Insertion: 11:30 Date Urinary Catheter Removed: 07/23/22 Time Urinary Catheter Discontinued: 13:30 A&P Assessment and plan (1) Status post cervical spinal fusion: Discontinue Hemovac drain. Physical therapy to mobilize. Discharge home today. Encourage incentive spirometer at home for pulmonary toilet. Continue [place] J collar. No bending lifting or twisting we will see him back in 1 week's time for wound check. Attestations Medical Necessity Statement*: Discharge home this morning after Hemovac drain discontinued Coding Level of Care Code Acute Code for Chg Fwd Diagnoses Status post cervical spinal fusion Z98.1
[2022-07-24] MEDS: HYDROcodone-acetaminophen 5-325 mg Tablet PO (07:40)
--- NOTE | 2022-07-24 07:43 | PC.PHAR ---
Addendum entered by Zofia Elkins 07/24/22 07:44: ext med history showed keflex 500mg tid x7d filled 07/17/22 -metformin er 500mg take 2 tabs (1000mg) bid filled 06/04/22 30d/s-trulicity should be 1 pen [id number] also showed triamcinolone acetonide 0.1% cream aaa bid filled 07/06/22 10d/s Original Note: unable to update medication list-pt had discharge orders and discharge medications entered
[2022-07-24 09:13] VITALS: BP 128/72; PULSE 70; RESP 16; TEMP 36.5; O2SAT 98
--- NOTE | 2022-07-24 09:15 | PC.NURSE ---
hemovac pulled 9am this am, xeroform, gauze and tegaderm used, no bleeding present, pt tolerated well and education provided.
--- NOTE | 2022-07-25 12:28 | P.DS_ITS ---
Discharge Providers Date of Admission: 07/23/22 14:59 Date of Discharge: July 24, 2022 Attending Provider at Admission: Christiano Esteban DO Attending Provider at Discharge: Christiano Esteban DO Primary Care Provider: Amari Rosales MD Diagnoses at Discharge Discharge Diagnosis (1) Status post cervical spinal fusion: Status: Acute Physical Exam Urinary Catheter Management: Ortiz: Cath Placed During This Visit: yes, but has since been removed by the nurse Reason for Continuing Indwelling Catheter: Decision to DC Catheter Urinary Catheter Date of Insertion: 07/23/22 Urinary Catheter Time of Insertion: 11:30 Date Urinary Catheter Removed: 07/23/22 Time Urinary Catheter Discontinued: 13:30 Discharge Data Studies Completed and Pending Completed Studies During Hospitalization Category Date Time Status XR cervical spine 3V* [id number] Routine Exams 07/23/22 Completed Radiology Impressions Cervical Spine X-Ray 07/23/22 00:00 IMPRESSION: Anterior cervical fusion as above. Laboratory Results POC Glucose 240 mg/dL (70-110) H 07/24/22 06:33 Vitals Last Vital Signs Temp 97.7 F 07/24/22 09:13 Pulse 70 07/24/22 09:13 Resp 16 07/24/22 09:13 BP 128/72 07/24/22 09:13 Pulse Ox 98 07/24/22 09:13 O2 Del Method Room Air 07/24/22 03:29 O2 Flow Rate 2 07/23/22 18:30 Discharge Plan Discharge Patient Disposition: Home Condition: Stable Prescriptions: New hydrocodone-acetaminophen 5-325 mg Tablet 1 - 2 tab PO Q4H PRN (Reason: Postoperative pain) Qty: 40 0RF (DME) Intraoperative Neuromonitoring See Rx Instructions .Route .MEDSUPPLY Qty: 1 0RF Rx Instructions: As directed. Continued (DME) Bone Growth Stimulator [id number] See Rx Instructions .Route .MEDSUPPLY Qty: 1 0RF Rx Instructions: As directed varenicline 1 mg Tablet 1 mg PO BID cetirizine [Zyrtec] 10 mg Tablet 10 mg PO QAM pantoprazole [Protonix] 40 mg Tablet,Delayed Release (Dr/Ec) 40 mg PO DAILY glimepiride 4 mg Tablet 4 mg PO QAM hydroxyzine HCl 25 mg Tablet 25 - 50 mg PO BEDTIME PRN (Reason: Itching) lisinopril-hydrochlorothiazide 10-12.5 mg Tablet 1 tab PO QAM testosterone cypionate 200 mg/mL Oil 200 mg IM Q15D metformin 500 mg Tablet Extended Release 24 Hr 500 mg PO BID loratadine [Claritin] 10 mg tablet 10 mg PO BEDTIME citalopram 40 mg tablet 40 mg PO 1XD Trulicity 3 mg/0.5 mL Pen Injector 3 mg SUBCUT 6XD Rx Instructions: 3 mg subcutaneously WEEKLY Discharge Orders: Discharge Order (Routine); Ordered 07/24/22 Ordered By: Logan Martinez Referrals: Christiano Esteban DO [Physician] - 07/31/22 3:45 pm Discharge Diet: Advance as tolerated Discharge Activity: Limit activity as instructed Patient Instructions: Hydrocodone/Acetaminophen (By mouth), Cervical Spinal Stenosis (GEN), Opioid Safety Activity Restrictions/Additional Instructions: Thank you for choosing [facility] for your care! The following is a list of instructions, from your provider, to follow upon your discharge to ensure you have the optimal recovery from your recent injury or surgery. Anterior Cervical Discectomy and Fusion: What to Expect at Home Your Recovery Follow-up care is a perdue part of your treatment and safety. Be sure to make and go to all appointments, and call your doctor if you are having problems. If you do not already have a follow-up appointment made, call office in the next 1-3 days to make follow up appointment for 1-2 weeks at [phone]. It is also a good idea to know your test results and keep a list of the medicines you take. You can expect your neck to feel stiff or sore after surgery. This should improv e in the weeks after surgery. But it may take 4 to 6 months for you to get better completely. You may have trouble sitting or standing in one position for very long and may need pain medicine in the weeks after your surgery. It may take 4 to 6 weeks to get back to your usual activities, but it may depend on what kind of surgery you had. Your throat will feel sore and it may be difficult to swallow for the first 3 days after your surgery. As long as you can get liquids down without difficulty, this should slowly improve, otherwise call our office or seek medical attention if it becomes increasingly difficult to get anything down including liquids. Avoid hot liquids for first 3-5 days. Soothing foods/liquids such as jello, pudding, and luke warm soups are recommended until swallowing improves. Staying elevated will also help, it's advised you keep propped up at while sleeping to help reduce the swelling. You may use an ice pack directly on your incision or around it on the front of your neck, using a cloth to protect your skin; and a heating pad to the back of your neck as needed. Do not use over the counter anti-inflammatory medications (Ibuprofen, Motrin, Aleve, Advil, etc) Taking these meds after having a fusion can delay fusion rates, we recommend you avoid them for the first 3 months after your surgery[address] Dr. Esteban may advise you to work with a physical therapist to strengthen the muscles around your neck and back - this will be discussed at your follow - up appointments. The pain or numbness you were having in your arms before surgery should get better or go away completely. This care sheet gives you a general idea about how long it will take for you to recover. But each person recovers at a different pace. Follow the steps below to get better as quickly as possible. How can you care for yourself at home? Activity ? Rest when you feel tired. Getting enough sleep will help you recover. ? Try to walk each day. Start by walking a little more than you did the day before. Bit by bit, increase the amount you walk. Walking boosts blood flow and helps prevent pneumonia and constipation. Walking may also decrease your muscle soreness after surgery. ? No lifting anything that is more that 5 pounds. This may include heavy grocery bags and milk containers, a heavy briefcase or backpack, cat litter or dog food bags, a child, or a vacuum roll cleaner. ? Avoid strenuous activities, such as bicycle riding, jogging, weightlifting, or aerobic exercise, until your doctor says it is okay. ? Do not drive until your follow-up visit after your surgery, or until your doctor says it isokay. ? Avoid taking long car trips for 2 to 4 weeks after surgery. Your neck may become tired and painful from sitting too long in one position. ? You will probably need to take 4 to 6 weeks off from work. It depends on the type of work you do and how you feel. ? You may have sex as soon as you feel able, but avoid positions that put stress on your neck or cause pain. Diet ? You can eat your normal diet. If your stomach is upset, try bland, low-fat foods like plain rice, broiled chicken, toast, and yogurt ? Drink plenty of fluids. If you have kidney, heart, or liver disease and have to limit fluids, talk with your doctor before you increase the amount of fluids you drink. ? You may notice that your bowel movements are not regular right after your surgery. This is common. Try to avoid constipation and straining with bowel movements. You may want to take a fiber supplement every day. If you have not had a bowel movement after a couple of days, ask your doctor about taking a mild laxative. Medicines ? Take pain medicines exactly as directed. 1. If Dr. Esteban gave you a prescription medicine for pain, take lt as prescribed. 2. Do not take two or more pain medicines at the same time unless the doctor told you to. Many pain medicines have acetaminophen, which is Tylenol. Too much acetaminophen {Tylenol) can be harmful. 3. If you think your pain pill is making you sick to your stomach: 4. Take your pills after meals (unless your doctor has told you not to). 5. Ask your Dr. for a different pain pill. Incisioncare ? Remove your dressing 48 hours after your surgery. Ok to shower and get the incision wet. Do not overtly wash your incision. When done, pad dry, leave open to air thereafter. Avoid creams and ointments directly on your incision. ? Your sutures in the incision will dissolve and fall out on their own. ? Keep the area clean and dry. You may cover it with a gauze bandage if it weeps or rubs against clothing; if you choose to do this, change the dressing everyday. Other instructions ? Use a heating pad, hot water bottle, or gentle massage on your back to reduce stiffness. Avoid putting heat on your incision When should you call for help? ? Call 911 anytime you think you may need emergency care. For example, call if: ? You pass out (lose consciousness). ? You have sudden chest pain and shortness of breath, or you cough upblood. ? You cannot swallow. ? You have severe pain in your neck or back. ? Call your Dr. or seek immediate medical care if: ? You have pain that does not get better after you take pain pills. ? You have loose stitches, or your incision comes open. ? You have blood or fluid draining from the incision. ? You have signs of infection, such as: 1. Increased pain, swelling, warmth, or redness. 2. Red streaks leading from the site. 3. Pus draining from the site. 4. Swollen lymph nodes in your neck or armpits. 5. A fever. ? You have severe pain in your arms. ? You have new or increased weakness or numbness in your arms. ? Watch closely for any changes in your health, and be sure to contact your doctor if: ? You do not have a bowel movement after taking a laxative. Discharge Attestations Time Spent in Discharge Care*: less than 30 min Quality Metrics Clinical Quality Measures [ No reported AMI, CVA or VTE this stay] Coding Level of Care Code Acute Code for Chg Fwd Diagnoses Status post cervical spinal fusion Z98.1
== END 2022-07-24 09:17 | disposition home or self-care (01) | DRG 473 ==
LOC: MEDSURG 07-24 07:05
PROVIDERS: Admitting Provider Orthopaedic Surgery; PCP Family Medicine; Visit Provider Orthopaedic Surgery
PROC: 0RB30ZZ Excision of Cervical Vertebral Disc, Open Approach (ICD-10-PCS; CPT 22551; principal; 2022-07-23 11:20)
DX: M47.22 Other spondylosis with radiculopathy, cervical region (principal); E11.9 Type 2 diabetes mellitus without complications; I10 Essential (primary) hypertension; G47.30 Sleep apnea, unspecified; F17.210 Nicotine dependence, cigarettes, uncomplicated; Z79.85 Long-term (current) use of injectable non-insulin antidiabetic drugs; Z79.84 Long term (current) use of oral hypoglycemic drugs; E66.01 Morbid (severe) obesity due to excess calories; Z68.37 Body mass index [BMI] 37.0-37.9, adult; K21.9 Gastro-esophageal reflux disease without esophagitis
CPT/HCPCS: 36416; 51702; 72040; 76000; 82962; 94660; 97110; 97161; C1713; C1763; C9359; G0378; J0330; J0690; J1100; J1790; J2250; J2405; J2704; J2710; J3010; J3490; J7030; J7120; L0172

== ENCOUNTER → 2022-08-09 09:12 | Outpatient (BNVA) | payer MEDICAID, SELFPAY | PROVIDERS: PCP Family Medicine; Visit Provider Physician Assistant | DX: Z98.1 Arthrodesis status (principal) | CPT/HCPCS: 72040 ==

== ENCOUNTER → 2022-08-21 07:56 | Outpatient (BNVA) | payer MEDICAID, SELFPAY | PROVIDERS: PCP Family Medicine; Visit Provider Orthopaedic Surgery | DX: Z98.1 Arthrodesis status (principal) | CPT/HCPCS: 72040 ==

== ENCOUNTER → 2022-09-20 08:05 | Outpatient (BNVA) | payer MEDICAID, SELFPAY | PROVIDERS: PCP Family Medicine; Visit Provider Orthopaedic Surgery | DX: Z98.1 Arthrodesis status (principal); Z47.89 Encounter for other orthopedic aftercare | CPT/HCPCS: 72040 ==

== ENCOUNTER → 2022-10-18 07:55 | Outpatient (BNVA) | payer MEDICAID, SELFPAY | PROVIDERS: PCP Family Medicine; Visit Provider Orthopaedic Surgery | DX: Z47.89 Encounter for other orthopedic aftercare; R07.9 Chest pain, unspecified; R20.0 Anesthesia of skin | CPT/HCPCS: 72040 ==

== ENCOUNTER 2022-11-06 07:36 | Outpatient (RCR) | payer MEDICAID, SELFPAY | END 2022-11-10 23:59 | disposition home or self-care (01) | LOC: SPT 07:36 | PROVIDERS: Visit Provider Orthopaedic Surgery | DX: M54.2 Cervicalgia (principal); G89.29 Other chronic pain | CPT/HCPCS: 97161 ==

== ENCOUNTER 2022-11-11 06:00 | Outpatient (RCR) | payer MEDICAID, SELFPAY | END 2022-12-11 23:59 | disposition home or self-care (01) | LOC: SPT 06:00 | PROVIDERS: Visit Provider Orthopaedic Surgery | DX: M54.2 Cervicalgia (principal); G89.29 Other chronic pain | CPT/HCPCS: 97110; G0283 ==

== ENCOUNTER 2022-12-12 06:00 | Outpatient (RCR) | payer MEDICAID, SELFPAY | END 2022-12-13 23:59 | disposition home or self-care (01) | LOC: SPT 06:00 | PROVIDERS: PCP Family Medicine; Visit Provider Orthopaedic Surgery | DX: M54.2 Cervicalgia (principal); G89.29 Other chronic pain | CPT/HCPCS: 97110 ==

== ENCOUNTER 2022-12-17 06:38 | Outpatient (CLI) | payer MEDICAID, SELFPAY ==
--- NOTE | 2022-12-17 | ECG_ITS ---
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 Interpretive Statements NAME OF STUDY: EXERCISE SESTAMIBI STRESS TEST INDICATION: [Chest Pain, ] PROCEDURE: The baseline electrocardiogram showed normal sinus rhythm with normal ST-Ts. At the baseline, the patient's blood pressure was 133/80 mm Hg with a heart rate of 86. The patient exercised for 7 minutes and 7 seconds on a standard Andrae protocol. Patient attained a maximum heart rate of 151 beats per minute(90% of the maximum predicted heart rate) with a blood pressure at the peak exercise of 177/78 mm Hg. The EKG at the peak exercise revealed no significant changes. Patient did not have any chest pain or any significant arrhythmis with the exercise Sestamibi was injected 1 minute prior to the peak exercise During the recovery phase, there were no new changes. Blood pressure at the end of the recovery phase was 130/62 mm Hg with a heart rate of 98 per minute. CONCLUSION: 1. Normal EKG response to [treadmill exercise 2. No exercise-induced chest pain or cardiac arrhythmia 3. For exercise tolerance, attained a maximum of 10.2 METs 4. Sestamibi/Sestamibi perfusion results pending; see separate report. Electronically Signed On 12-22-2022 14:33:47 OFFICE MANAGER EXECUTIVE ASSISTANT by Deann Roberson M.D. [id number]
[2022-12-17 06:48] VITALS: BMI 37.6
--- NOTE | 2022-12-17 06:49 | NMCV_ITS ---
NM penelope perf SPECT r/s* [id number] Lionel Knutson Age: 52 Gender: M : 1970 Exam Date: 12/17/2022 07:35 Ordering Phys: Amari Rosales MD Technologist: GRIFFIN Begum Exam Location: [facility] Indications: CHEST PAIN STRESS TEST Please [facility] IMAGE PROTOCOL Rest/Stress 1 Exercise Day Radiopharmaceutical Dose (mCi) Administration Site Administered by Rest: Tc-99m 10.6 IV GRIFFIN Keating Sestamipaul Stress:Tc-99m 33.0 IV GRIFFIN Keating Sestamibi Rest: 17-Dec-2022 60 Discovery 630 Stress: 17-Dec-2022 15 Discovery 630 Radiopharmaceutical was injected at 86 % maximum heart rate. Images obtained in supine and prone position. SPECT RESULTS Technical Quality: Excellent Raw Data Analysis: Normal Image Corrections: No attenuation or motion correction applied Summed Stress Score: 0 Summed Rest Score: 0 Summed Difference Score: 0 PERFUSION FINDINGS Fairly uniform myocardial tracer uptake with no significant perfusion abnormalities FUNCTIONAL RESULTS (calculated via Gated SPECT) Stress Image LV EF (%): 76 Stress EDV (mL):119 TID: 0.77 Stress ESV (mL):29 FUNCTIONAL FINDINGS: Segmental wall motion analysis revealing no gross wall motion abnormalities IMPRESSIONS 1. Unremarkable Myocardial perfusion imaging 2. Normal LV ejection fraction of 76% 3. LV wall motion analysis revealing no gross wall motion abnormalities. 4. Normal LV volume Low probability for coronary ischemia, based on the above findings Dr Deann Roberson MD FACC (Electronically Signed) Final Date: 17 December 2022 13:52 S
[2022-12-17 08:59] VITALS: BP 130/62; PULSE 98
== END 2022-12-17 06:39 | disposition home or self-care (01) ==
LOC: CDL 06:39
PROVIDERS: PCP Family Medicine; Visit Provider Family Medicine
DX: R07.9 Chest pain, unspecified (principal)
CPT/HCPCS: 36415; 78452; 93017; A9500

== ENCOUNTER 2022-12-20 10:34 | Outpatient (CLI) | payer MEDICAID, SELFPAY ==
--- NOTE | 2022-12-20 10:30 | CT_ITS ---
WS: [id number] CT chest wo con [id number] HISTORY: chest pain TECHNIQUE: Axial imaging performed through the thorax. Coronal and sagittal reformats are submitted. All CT scans at [facility] use at least one of these dose optimization techniques: automated exposure control; mA and/or kV adjustment per patient size (includes targeted exams where dose is mat ched to clinical indication); or iterative reconstruction. CONTRAST: None DLP: 653.75 mGy.cm COMPARISON: 10/09/2020 Lungs and central airway: There are a few scattered pulmonary nodules within both lungs which were al so present on the study of 10/09/2020. These nodules are less than a centimeter and some of them are a long the fissures which are more typically benign. No pneumonia. Pleura: Normal. No pleural effusion. Heart and pericardium: Normal size heart with no pericardial effusion. Mediastinum and hitesh: No mediastinum or hilar adenopathy. There are very small mediastinal and hilar lymph nodes. Unchanged since the prior study from 2020. Vessels: Normal size aortic and pulmonary artery. No coronary artery calcifications. Chest wall and lower neck: No soft tissue masses. Upper abdomen: Surface of the liver is nodular suggesting cirrhosis. Caudate enlargement and LEFT lob e enlargement also suggesting cirrhosis. Osseous structures: No destructive process. IMPRESSION: 1. Stable subcentimeter pulmonary nodules since 10/09/2020. 2. No pneumonia. 3. No significant mediastinal or hilar adenopathy. 4. Cirrhosis.
== END 2022-12-20 10:35 | disposition home or self-care (01) ==
LOC: RAD 10:35
PROVIDERS: PCP Family Medicine; Visit Provider Orthopaedic Surgery
DX: R07.9 Chest pain, unspecified (principal); K74.60 Unspecified cirrhosis of liver; R91.8 Other nonspecific abnormal finding of lung field
CPT/HCPCS: 71250

== ENCOUNTER → 2023-01-23 11:11 | Outpatient (BNVA) | payer MEDICAID, SELFPAY | PROVIDERS: PCP Family Medicine; Visit Provider Specialist | DX: M16.0 Bilateral primary osteoarthritis of hip; M19.90 Unspecified osteoarthritis, unspecified site; M25.551 Pain in right hip | CPT/HCPCS: 36415; 73502; 80053; 85651; 86140; 86160; 86162; 86200; 86235; 86255; 86376; 86431 ==

== ENCOUNTER 2023-02-26 07:12 | Outpatient (CLI) | payer MEDICAID, SELFPAY ==
--- NOTE | 2023-02-26 07:14 | MR_ITS ---
WS: [id number] EXAMINATION: MR hip RT wo con* [id number] ORDER DATE: 02/26/2023 7:21 AM COMPARISON: Radiograph 01/23/2023 HISTORY: hip pain CONTRAST: None. TECHNIQUE: Coronal STIR of the Pelvis. Coronal proton density, coronal T1, axial T2 fat sat, axial T1 , sagittal T2 fat sat, and sagittal T1 performed of the hip. After contrast, axial T1 fat sat, coron al T1 fat sat, and sagittal T1 fat sat were performed. FINDINGS: Moderate degenerative narrowing RIGHT hip. No acute fractures. Normal bone marrow signal in the femor al head and neck. Slight hypertrophic changes about the acetabulum and femoral neck. Slight subchondr al cystic change along the acetabulum. No significant joint effusion. Normal visualized RIGHT pubic r ami. Moderate degenerative narrowing LEFT hip with normal bone marrow signal. Normal bone marrow signal in the bony pelvis and sacrum. No sacral insufficiency fractures. Normal visualized soft tissues. No ot her acute findings. IMPRESSION: 1. Moderate degenerative narrowing RIGHT hip. Normal bone marrow signal. Slight hypertrophic change and subchondral cystic change involving the acetabulum and femoral neck. 2. Moderate degenerative narrowing LEFT hip with normal bone marrow signal. 3. Normal bone marrow signal involving the bony pelvis and sacrum. 4. No other acute findings.
== END 2023-02-26 07:13 | disposition home or self-care (01) ==
LOC: RAD 07:12
PROVIDERS: PCP Family Medicine; Visit Provider Specialist
DX: M16.11 Unilateral primary osteoarthritis, right hip (principal)
CPT/HCPCS: 73721

== ENCOUNTER → 2023-02-27 10:04 | Outpatient (BNVA) | payer MEDICAID, SELFPAY | PROVIDERS: PCP Family Medicine; Visit Provider Specialist | DX: R74.8 Abnormal levels of other serum enzymes (principal) | CPT/HCPCS: 36415; 86705; 86706; 86709; 86803; 87340 ==

== ENCOUNTER → 2023-04-11 14:58 | Outpatient (BNVA) | payer MEDICAID, SELFPAY | PROVIDERS: PCP Family Medicine; Visit Provider Anesthesiology Pain Medicine | DX: M16.11 Unilateral primary osteoarthritis, right hip (principal); M25.551 Pain in right hip | CPT/HCPCS: 77002 ==

== ENCOUNTER → 2023-09-11 11:03 | Outpatient (BNVA) | payer MEDICAID, SELFPAY | PROVIDERS: PCP Family Medicine; Visit Provider Internal Medicine Rheumatology | DX: Z79.899 Other long term (current) drug therapy (principal); Z11.1 Encounter for screening for respiratory tuberculosis; Z11.59 Encounter for screening for other viral diseases; M45.6 Ankylosing spondylitis lumbar region; M77.31 Calcaneal spur, right foot; M19.90 Unspecified osteoarthritis, unspecified site | CPT/HCPCS: 36415; 73130; 73562; 73630; 80076; 82306; 82565; 83520; 85025; 85651; 86140; 86480; 86704; 86803; 86812; 87340 ==

== ENCOUNTER 2023-12-19 07:51 | Outpatient (CLI) | payer MEDICAID, SELFPAY ==
[2023-12-19 08:19] LABS: Basophils # 0.1 10^3/uL (0.0-0.1); Basophils % 0.8 %; Eosinophils # 0.4 10^3/uL (0.0-0.8); Eosinophils % 6.7 %; Hematocrit 45.7 % (37-53); Lymphocytes # 1.8 10^3/uL (0.8-4.8); Lymphocytes % 27.9 %; Mean Corpuscular HGB Conc 31.9 g/dL (30-55); Mean Corpuscular Hemoglobin 29.7 pg (27-33); Mean Corpuscular Volume 93.1 fl (82-101); Mean Platelet Volume 11.7 fL (7.4-10.4); Monocytes # 0.8 10^3/uL (0.2-0.9); Monocytes % 11.9 %; Neutrophils # 3.34 10^3/uL (1.8-7.7); Nucleated Red Blood Cells % 0 %; Platelet Count 140 10^3/cmm (157-399); Red Blood Count 4.91 10^6/uL (3.85-5.65); Red Cell Distribution Width 13.5 % (12.1-15.1); White Blood Count 6.55 10^3/uL (3.29-11.43)
[2023-12-19 08:33] LABS: Erythrocyte Sedimentation Rate 43 mm/hr (0-10)
[2023-12-19 08:56] LABS: Alanine Aminotransferase 47 U/L (0-41); Albumin Level 3.8 g/dL (3.5-5.2); Alkaline Phosphatase 209 U/L (40-130); Aspartate Amino Transferase 70 U/L (0-40); C Reactive Protein 19.2 mg/L (0.0-4.9); Glomerular Filtration Rate 100.7 mL/min (90-130); Total Bilirubin 0.4 mg/dL (0.15-1.2); Total Protein 6.8 g/dL (6.6-8.7)
== END 2023-12-19 07:52 | disposition home or self-care (01) ==
LOC: LAB 07:53
PROVIDERS: PCP Family Medicine; Visit Provider Internal Medicine Rheumatology
DX: M06.041 Rheumatoid arthritis without rheumatoid factor, right hand (principal); M06.042 Rheumatoid arthritis without rheumatoid factor, left hand; Z79.899 Other long term (current) drug therapy
CPT/HCPCS: 36415; 80076; 82565; 85025; 85651; 86140

== ENCOUNTER 2024-01-31 08:43 | Outpatient (CLI) | payer MEDICAID, SELFPAY ==
[2024-01-31 09:08] LABS: Erythrocyte Sedimentation Rate 57 mm/hr (0-10)
[2024-01-31 09:10] LABS: Basophils % 0.7 %; Eosinophils # 0.2 10^3/uL (0.0-0.8); Hematocrit 45.6 % (37-53); Lymphocytes % 32.7 %; Mean Corpuscular HGB Conc 32.2 g/dL (30-55); Mean Corpuscular Hemoglobin 29.2 pg (27-33); Mean Corpuscular Volume 90.5 fl (82-101); Mean Platelet Volume 10.9 fL (7.4-10.4); Monocytes # 0.5 10^3/uL (0.2-0.9); Monocytes % 8.8 %; Neutrophils # 3.26 10^3/uL (1.8-7.7); Neutrophils % 54.5 %; Nucleated Red Blood Cells % 0 %; Platelet Count 152 10^3/cmm (157-399); Red Blood Count 5.04 10^6/uL (3.85-5.65); Red Cell Distribution Width 13.4 % (12.1-15.1); White Blood Count 5.99 10^3/uL (3.29-11.43)
[2024-01-31 09:25] LABS: Alanine Aminotransferase 36 U/L (0-41); Albumin Level 3.7 g/dL (3.5-5.2); Alkaline Phosphatase 189 U/L (40-130); Aspartate Amino Transferase 55 U/L (0-40); C Reactive Protein 16.1 mg/L (0.0-4.9); Globulin 4.2 g/dL (1.3-4.6); Glomerular Filtration Rate 117.5 mL/min (90-130); Total Bilirubin 0.4 mg/dL (0.15-1.2); Total Protein 7.9 g/dL (6.6-8.7)
== END 2024-01-31 08:44 | disposition home or self-care (01) ==
PROVIDERS: PCP Family Medicine; Visit Provider Internal Medicine Rheumatology
DX: Z79.899 Other long term (current) drug therapy (principal); M06.041 Rheumatoid arthritis without rheumatoid factor, right hand; M06.042 Rheumatoid arthritis without rheumatoid factor, left hand
CPT/HCPCS: 36415; 80076; 82565; 85025; 85651; 86140

== ENCOUNTER → 2024-04-07 08:41 | Outpatient (BNVA) | payer OTHER, SELFPAY | PROVIDERS: PCP Family Medicine; Visit Provider Psychiatry & Neurology Psychiatry | DX: E11.9 Type 2 diabetes mellitus without complications (principal) | CPT/HCPCS: 80061; 83036 ==

== ENCOUNTER 2024-04-15 16:20 | Emergency (ER) | payer MEDICAID, SELFPAY ==
[2024-04-09 10:26] VITALS: BP 174/90; BMI 36.3
[2024-04-15 16:29] VITALS: BP 138/84; PULSE 88; RESP 18; TEMP 36.4; O2SAT 95; BMI 36.5
--- NOTE | 2024-04-15 16:36 | W.ED.ANIMALB ---
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 officer went into her house and was bitten his left lower leg the knee normal and there did not know whose dog it was did not know the immunization status he does have a small puncture wound to left lower leg bleeding is controlled he is here for rabies prophylaxis Related Data Home Medications ?Medication ?Instructions ?Recorded ?Confirmed loratadine 10 mg tablet (Claritin) 10 mg PO BEDTIME 05/26/19 04/15/24 cetirizine 10 mg tablet (Zyrtec) 10 mg PO QAM 10/10/20 04/15/24 glimepiride 4 mg tablet 4 mg PO QAM 10/10/20 04/15/24 lisinopril 10 1 tab PO QAM 10/10/20 04/15/24 mg-hydrochlorothiazide 12.5 mg tablet metformin 500 mg tablet,extended 500 mg PO BID 10/10/20 04/15/24 release 24 hr pantoprazole 40 mg tablet,delayed 40 mg PO DAILY 10/10/20 04/15/24 release (Protonix) citalopram 40 mg tablet 40 mg PO 1XD 06/14/21 04/15/24 dulaglutide 3 mg/0.5 mL 3 mg SUBCUT 6XD 05/10/22 04/15/24 subcutaneous pen injector (Trulicity) hydroxyzine HCl 10 mg tablet 10 mg PO .q hs 04/07/24 04/15/24 mupirocin 2 % topical ointment 1 applic topical BID 04/15/24 04/15/24 semaglutide 0.25 mg or 0.5 mg (2 0.25 mg SUBCUT Q7D 04/15/24 04/15/24 mg/3 mL) subcutaneous pen injector (Ozempic) Previous Rx's ?Medication ?Instructions ?Recorded adalimumab 40 mg/0.8 mL 40 mg (0.8 mL) SUBCUT Q14D #2 ea 02/19/24 subcutaneous pen kit (Humira Pen) amoxicillin 500 mg-potassium 1 tab PO BID #14 tabs 04/15/24 clavulanate 125 mg tablet (Augmentin) Allergies Allergy/AdvReac Type Severity Reaction Status Date / Time Sulfa (Sulfonamide Allergy rash Verified 04/07/24 10:18 Antibiotics) PFSH ED PFSH: Medical History (Updated 04/15/24 @ 16:38 by Cathryn Lucia MD) Psychiatric care Seasonal allergies GERD (gastroesophageal reflux disease) Joint pain Immunization counseling High risk medication use Primary Sjogren's syndrome Seronegative rheumatoid arthritis of both hands Tobacco dependence Severe sleep apnea Hypertension Diabetes Surgical History History of back surgery Trigger finger, right ring finger Trigger finger, right index finger Carpal tunnel syndrome, left Family History (Updated 04/07/24 @ 10:04 by Cher Bearden RN) Other Bipolar disorder Brain cancer Diabetes Heart disease Hypertension Lung cancer Schizophrenia Seizure disorder Skin cancer Denies family history of Clotting disorder Anesthesia complication Bleeding disorder Social History (Updated 04/07/24 @ 10:08 by Cher Bearden RN) Smoking and tobacco/nicotine status: current every day tobacco/nicotine user cigarettes Packs smoked per day: 1.5 Years cigarettes smoked: 48 Quit status (tobacco/nicotine): not considering quitting Second hand smoke exposure: Yes Alcohol intake: never Substance/Drug Use: never Adopted: No Caregiver/support person: No Lives independently: Yes Household members: spouse Housing: Manufactured/Mobile home Marital status: Number of children: 1 Number of grandchildren: 2 Highest education level completed: GED or Equivalent service: No Current occupational status: other Current occupation: trying to get disability Pets and animals: Yes Pets & animals: cat(s) and dog(s) Leisure activites: games Current gender identity: Male Elena/Islam: Gnosticism Special elena needs: No Agree to transfusion: Yes Physical Exam Const: COMMON NORMALS: no acute distress, patient oriented x3 and healthy appearing HENMT: COMMON NORMALS: normocephalic and atraumatic HEAD & SCALP: normocephalic and atraumatic Neck/C-Spine: COMMON NORMALS: full ROM and supple Chest: COMMONS NORMALS: normal inspection of the chest Resp: COMMON NORMALS: normal respiratory effort Cardio: COMMON NORMALS: regular rate RATE: regular rate Extremity: COMMON NORMALS: full ROM Neuro: COMMON NORMALS: patient oriented x3, moves all extremities and no focal motor deficits Psych: COMMON NORMALS: mental status grossly normal, Normal thought process present and cooperative THOUGHT PROCESS: Normal thought process present Skin: COMMON NORMALS: no rashes or lesions noted NARRATIVE SKIN EXAM: Dog bite wound left lower calf no large laceration GENERAL SKIN EXAM: no rashes or lesions noted Course Vital Signs: Vital signs: Vital Signs Temperature 97.6 F 04/15/24 16:29 Pulse Rate 88 04/15/24 16:29 Respiratory Rate 18 04/15/24 16:29 Blood Pressure 138/84 04/15/24 16:29 Pulse Oximetry 95 04/15/24 16:29 Oxygen Delivery Me thod Room Air 04/15/24 16:29 MDM - Animal Bite Medical Decision Making Patient presents with a dog bite we will start patient on rabies along with antibiotics patient stable for discharge Medical Records I reviewed the patient's medical records. No radiology studies performed this visit Discharge Plan Discharge Patient Disposition: Home Clinical Impression: Dog bite Condition: Stable Prescriptions: New amoxicillin-pot clavulanate [Augmentin] 500-125 mg tablet 1 tab PO BID Qty: 14 0RF No Action hydroxyzine HCl 10 mg tablet 10 mg PO .q hs Humira Pen 40 mg/0.8 mL pen injector kit 40 mg SUBCUT Q14D Qty: 2 5RF cetirizine [Zyrtec] 10 mg Tablet 10 mg PO QAM pantoprazole [Protonix] 40 mg Tablet,Delayed Release (Dr/Ec) 40 mg PO DAILY glimepiride 4 mg Tablet 4 mg PO QAM lisinopril-hydrochlorothiazide 10-12.5 mg Tablet 1 tab PO QAM metformin 500 mg Tablet Extended Release 24 Hr 500 mg PO BID loratadine [Claritin] 10 mg tablet 10 mg PO BEDTIME mupirocin 2 % ointment 1 applic TOPICAL BID Ozempic 0.25 mg or 0.5 mg (2 mg/3 mL) pen injector 0.25 mg SUBCUT Q7D citalopram 40 mg tablet 40 mg PO 1XD Trulicity 3 mg/0.5 mL Pen Injector 3 mg SUBCUT 6XD Rx Instructions: 3 mg subcutaneously WEEKLY Discharge Orders: Discharge ED (Routine); Ordered 04/15/24 Ordered By: Cathryn Lucia Referrals: Amari Rosales MD [Primary Care Provider] - Discharge Diet: Advance as tolerated Discharge Activity: Resume usual activity Patient Instructions: Animal Bite (ED), Rabies (ED) Print Language: Grenadian Coding Level of Care Code ED Site Superintendent for Olvin Bolivar
[2024-04-15] MEDS: rabies vaccine 2.5 unit SDV IM (17:12)
[2024-04-15] MEDS: rabies IG 300 unit/mL SDV 1 mL 2370 UNIT IM (17:14)
[2024-04-15 17:24] VITALS: BP 136/70; PULSE 84; O2SAT 96
--- NOTE | 2024-04-15 17:29 | DCPLANNER ---
scanned rabies paper in and email infusion a copy
[2024-04-15 17:38] VITALS: BP 132/74; PULSE 76; O2SAT 96
== END 2024-04-15 17:40 | disposition home or self-care (01) ==
PROVIDERS: Emergency Provider Emergency Medicine; PCP Family Medicine
DX: S81.852A Open bite, left lower leg, initial encounter (principal); W54.0XXA Bitten by dog, initial encounter; F17.210 Nicotine dependence, cigarettes, uncomplicated; E11.9 Type 2 diabetes mellitus without complications; I10 Essential (primary) hypertension; Z79.84 Long term (current) use of oral hypoglycemic drugs; Z79.85 Long-term (current) use of injectable non-insulin antidiabetic drugs; Z20.3 Contact with and (suspected) exposure to rabies; Z29.14 Encounter for prophylactic rabies immune globulin
CPT/HCPCS: 90375; 90471; 90675; 99283

== ENCOUNTER 2024-04-30 08:00 | Oncology outpatient (recurring) (ONCR) | payer MEDICAID, SELFPAY ==
[2024-04-09 10:26] VITALS: BP 174/90; BMI 36.3
[2024-04-20] MEDS: rabies vaccine 2.5 unit SDV IM (08:22)
[2024-04-23] MEDS: rabies vaccine 2.5 unit SDV IM (08:39)
== END 2024-05-11 23:59 | disposition home or self-care (01) ==
PROVIDERS: PCP Family Medicine; Visit Provider Emergency Medicine
DX: Z53.9 Procedure and treatment not carried out, unspecified reason (principal)
CPT/HCPCS: 90471; 90675

== ENCOUNTER 2024-05-25 07:53 | Outpatient (CLI) | payer MEDICAID, SELFPAY ==
[2024-04-09 10:26] VITALS: BP 174/90; BMI 36.3
[2024-05-25 08:49] LABS: Basophils % 0.6 %; Eosinophils # 0.2 10^3/uL (0.0-0.8); Eosinophils % 4.2 %; Hematocrit 42.4 % (37-53); Lymphocytes % 37.7 %; Mean Corpuscular HGB Conc 31.4 g/dL (30-55); Mean Corpuscular Volume 89.3 fl (82-101); Mean Platelet Volume 11.6 fL (7.4-10.4); Monocytes # 0.4 10^3/uL (0.2-0.9); Monocytes % 8.1 %; Neutrophils # 2.59 10^3/uL (1.8-7.7); Nucleated Red Blood Cells % 0 %; Platelet Count 143 10^3/cmm (157-399); Red Blood Count 4.75 10^6/uL (3.85-5.65); Red Cell Distribution Width 14.3 % (12.1-15.1); White Blood Count 5.28 10^3/uL (3.29-11.43)
[2024-05-25 08:54] LABS: Erythrocyte Sedimentation Rate 59 mm/hr (0-10)
[2024-05-25 09:10] LABS: Alanine Aminotransferase 31 U/L (0-41); Albumin Level 3.5 g/dL (3.5-5.2); Alkaline Phosphatase 164 U/L (40-130); Aspartate Amino Transferase 54 U/L (0-40); C Reactive Protein 5.6 mg/L (0.0-4.9); Glomerular Filtration Rate 117.5 mL/min (90-130); Total Bilirubin 0.4 mg/dL (0.15-1.2); Total Protein 7.5 g/dL (6.6-8.7)
== END 2024-05-25 07:54 | disposition home or self-care (01) ==
PROVIDERS: PCP Family Medicine; Visit Provider Internal Medicine Rheumatology
DX: M06.041 Rheumatoid arthritis without rheumatoid factor, right hand (principal); M06.042 Rheumatoid arthritis without rheumatoid factor, left hand; Z79.899 Other long term (current) drug therapy
CPT/HCPCS: 36415; 80076; 82565; 85025; 85651; 86140

== ENCOUNTER → 2024-07-15 11:26 | Outpatient (BNVA) | payer MEDICAID, SELFPAY ==
[2024-04-09 10:26] VITALS: BP 174/90; BMI 36.3
== END ==
PROVIDERS: PCP Family Medicine; Visit Provider Internal Medicine Rheumatology
DX: Z79.899 Other long term (current) drug therapy (principal); M25.562 Pain in left knee; M25.572 Pain in left ankle and joints of left foot
CPT/HCPCS: 73562; 73610

== ENCOUNTER 2024-08-12 16:23 | Emergency (ER) | payer MEDICAID, SELFPAY ==
[2024-04-09 10:26] VITALS: BP 174/90; BMI 36.3
[2024-08-12] VITALS (8 sets, daily range): BP systolic 110–118; BP diastolic 56–65; PULSE 74–93; RESP 18–20; TEMP 36.7; O2SAT 91–94; BMI 38.5
--- NOTE | 2024-08-12 16:25 | ECG_ITS ---
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 Measurements Intervals [place] Rate: 95 P: 8 HI: 128 QRS: 74 QRSD: 107 T: 50 QT: 356 QTc: 449 Interpretive Statements SINUS RHYTHM POSSIBLE INFERIOR MYOCARDIAL INFARCTION , PROBABLY OLD [30 ms Q WAVE IN II/aVF] Compared to ECG 03/14/2022 09:49:54 Indeterminate axis no longer present Left posterior fascicular block no longer present Myocardial infarct finding still present Electronically Signed On 08-13-2024 08:53:41 CDT by Nj Melendez M.D. [id number]
--- NOTE | 2024-08-12 16:25 | XRR_ITS ---
PROCEDURE INFORMATION: Exam: XR Chest Exam date and time: 08/12/2024 4:30 PM Age: 54 years old Clinical indication: Pain; Angina pectoris; Additional info: Chest pain TECHNIQUE: Imaging protocol: Radiologic exam of the chest. Views: 1 view. COMPARISON: CT chest con [id number] 12/20/2022 10:44 AM FINDINGS: Lungs: Unremarkable. No consolidation. Pleural spaces: Unremarkable. No pleural effusion. No pneumothorax. Heart/Mediastinum: Stable cardiomediastinal silhouette. Bones/joints: ACDF hardware partially imaged. XR/XR chest 1V portable [id number] IMPRESSION: No acute cardiopulmonary process.
--- OUTSIDE RECORDS SUMMARY | 2024-08-12 16:31 | XMS_ITS | Encounter Summary ---
Author Organization [facility] Address [address] [place] [address] Care Team Providers Care Software Engineer Advisor Name Role Phone Amari Rosales MD Primary Care Provider [phone] Encounter Details Date Type Department Care Team (Latest Contact Info) Description 04/16/2003 Outpatient Historical [facility] Family Medicine [place] [address] [facility] [address] [place] [phone] Rafy Spann MD [address] [facility] [address] [place] [address] SPRAIN OF BACK NOS (Primary Dx) Social History Tobacco Use Types Packs/Day Years Used Date Smoking Tobacco: Never Assessed Sex and Gender Information Value Date Recorded Sex Assigned at Not on file 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
--- OUTSIDE RECORDS SUMMARY | 2024-08-12 16:31 | XMS_ITS | Encounter Summary ---
Author Organization [facility] Address [address] [place] [address] Care Team Providers Care Boiler Shop Mechanic Name Role Phone Amari Rosales MD Primary Care Provider [phone] Encounter Details Date Type Department Care Team (Latest Contact Info) Description 08/09/[address] 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
--- OUTSIDE RECORDS SUMMARY | 2024-08-12 16:32 | XMS_ITS | Encounter Summary ---
Author Organization [facility] Address [address] [place] [address] Care Team Providers Care Conservation Officer Name Role Phone Amari Rosales MD Primary Care Provider [phone] Encounter Details Date Type Department Care Team (Latest Contact Info) Description 03/25/2001 Outpatient Historical [facility] General Surgery [address] [address] [address] [place] [address] [place] [address] [facility] [address] [place] [address] [phone] OPEN WOUND OF HIP/THIGH (Primary Dx) Social History Tobacco Use Types Packs/Day Years Used Date Smoking Tobacco: Never Assessed Sex and Gender Information Value Date Recorded Sex Assigned at Not on file 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
--- OUTSIDE RECORDS SUMMARY | 2024-08-12 16:32 | XMS_ITS | Patient Health Record ---
Author Organization [facility] Address [address] [place] [address] Care Team Providers Care Test Examiner Name Role Phone Fransisco Starr Primary Care Provider Reason For Referral No Information Problems No Known Problems Plan Of Treatment No Information Insurance Providers Payer Name Payer Address Payer Phone Subscriber Number Group Number Insured Name Patient Relationship to Insured Coverage Start Date Coverage End Date National Med Test [address] [facility] [place] [phone] Lionel Knutson Self - patient is the insured
--- OUTSIDE RECORDS SUMMARY | 2024-08-12 16:32 | XMS_ITS | Encounter Summary ---
Author Organization [facility] Address [address] [place] [address] Care Team Providers Care Electric Motor Controls Assembler Name Role Phone Amari Rosales MD Primary Care Provider [phone] Encounter Details Date Type Department Care Team (Latest Contact Info) Description 01/16/1999 Outpatient Historical [facility] Arsenio Terry NO ADDRESS ON FILE Acute sinusitis, unspecified (Primary Dx); Pain in joint, shoulder region Social History Tobacco Use Types Packs/Day Years Used Date Smoking Tobacco: Never Assessed Sex and Gender Information Value Date Recorded Sex Assigned at Not on file Legal Sex Male 4:23 AM OFFICE SUPPORT ASSOCIATE Gender Identity Not on file Sexual Orientation Not on file documented as of this encounter Plan of Treatment Not on file documented as of this encounter Visit Diagnoses Diagnosis Acute sinusitis, unspecified- Primary Pain in joint, shoulder region documented in this encounter Care Teams Electric Motor Controls Assembler Relationship Specialty Start Date End Date Amari Rosales MD [address] [address] PCP - General Family Practice 11/05/19 documented as of this encounter
--- OUTSIDE RECORDS SUMMARY | 2024-08-12 16:32 | XMS_ITS | Encounter Summary ---
Author Organization [facility] Address [address] [place] [address] Care Team Providers Care Supervisor Of Guidance And Testing Name Role Phone Amari Rosales MD Primary Care Provider [phone] Encounter Details Date Type Department Care Team (Latest Contact Info) Description 09/12/1999 Outpatient Historical [facility] Arsenio Terry NO ADDRESS ON FILE Contusion of foot (Primary Dx) Social History Tobacco Use Types Packs/Day Years Used Date Smoking Tobacco: Never Assessed Sex and Gender Information Value Date Recorded Sex Assigned at Not on file Legal Sex Male 4:23 AM OUTPATIENT PHLEBOTOMIST Gender Identity Not on file Sexual Orientation Not on file documented as of this encounter Plan of Treatment Not on file documented as of this encounter Visit Diagnoses Diagnosis Contusion of foot- Primary documented in this encounter Care Teams Supervisor Of Guidance And Testing Relationship Specialty Start Date End Date Amari Rosales MD [address] [place] [address] PCP - General Family Practice 11/05/19 documented as of this encounter
--- OUTSIDE RECORDS SUMMARY | 2024-08-12 16:32 | XMS_ITS | Encounter Summary ---
Author Organization [facility] Address [address] [place] [address] Care Team Providers Care Band Salvager Name Role Phone Amari Rosales MD Primary Care Provider [phone] Encounter Details Date Type Department Care Team (Latest Contact Info) Description 04/08/2001 Outpatient Historical [facility] General Surgery [address] [address] [address] [place] [address] [place] [address] [facility] [address] [place] [address] [phone] POSTSURGICAL STATES NEC (Primary Dx) Social History Tobacco Use Types Packs/Day Years Used Date Smoking Tobacco: Never Assessed Sex and Gender Information Value Date Recorded Sex Assigned at Not on file Legal Sex Male 4:23 AM JAIL OFFICER Gender Identity Not on file Sexual Orientation Not on file documented as of this encounter Plan of Treatment Not on file documented as of this encounter Visit Diagnoses Diagnosis Other postprocedural status(V45.89)- Primary Other postprocedural status documented in this encounter Care Teams Band Salvager Relationship Specialty Start Date End Date Amari Rosales MD [address] [address] PCP - General Family Practice 11/05/19 documented as of this encounter
--- OUTSIDE RECORDS SUMMARY | 2024-08-12 16:32 | XMS_ITS | Encounter Summary ---
Author Organization [facility] Address [address] [place] [address] Care Team Providers Care Softball Core Molder Name Role Phone Amari Rosales MD Primary Care Provider [phone] Encounter Details Date Type Department Care Team (Latest Contact Info) Description 08/01/1999 Outpatient Historical [facility] Arsenio Terry NO ADDRESS ON FILE Chest pain, unspecified (Primary Dx) Social History Tobacco Use Types Packs/Day Years Used Date Smoking Tobacco: Never Assessed Sex and Gender Information Value Date Recorded Sex Assigned at Not on file Legal Sex Male 4:23 AM CAFETERIA COUNTER ATTENDANT Gender Identity Not on file Sexual Orientation Not on file documented as of this encounter Plan of Treatment Not on file documented as of this encounter Visit Diagnoses Diagnosis Chest pain, unspecified- Primary documented in this encounter Care Teams Softball Core Molder Relationship Specialty Start Date End Date Amari Rosales MD [address] [place] [address] PCP - General Family Practice 11/05/19 documented as of this encounter
--- OUTSIDE RECORDS SUMMARY | 2024-08-12 16:32 | XMS_ITS | Encounter Summary ---
Author Organization [facility] Address [address] [place] [address] Care Team Providers Care Honing Machine Operator Semiautomatic Name Role Phone Amari Rosales MD Primary Care Provider [phone] Encounter Details Date Type Department Care Team (Latest Contact Info) Description 09/08/1999 Outpatient Historical [facility] Arsenio Terry NO ADDRESS ON FILE Dermatitis due to plant (Primary Dx) Social History Tobacco Use Types Packs/Day Years Used Date Smoking Tobacco: Never Assessed Sex and Gender Information Value Date Recorded Sex Assigned at Not on file Legal Sex Male 4:23 AM WIND SITE MANAGER Gender Identity Not on file Sexual Orientation Not on file documented as of this encounter Plan of Treatment Not on file documented as of this encounter Visit Diagnoses Diagnosis Dermatitis due to plant- Primary Contact dermatitis and other eczema due to plants (except food) documented in this encounter Care Teams Honing Machine Operator Semiautomatic Relationship Specialty Start Date End Date Amari Rosales MD [address] [place] [address] PCP - General Family Practice 11/05/19 documented as of this encounter
--- OUTSIDE RECORDS SUMMARY | 2024-08-12 16:32 | XMS_ITS | Clinical Summary ---
Author Organization [facility] Address [address] [place] [address] Phone Care Team Providers Care Hook And Eye Sewing Machine Operator Name Role Phone Amari Rosales MD Primary Care Provider [phone] Allergies Active Allergy Reactions Criticality Noted Date Comments Sulfa (Sulfonamide Antibiotics) Hives High 05/2020 Medications albuterol sulfate 90 mcg/Actuation inhaler Active metFORMIN (GLUCOPHAGE) 1,000 mg tablet Take 1,000 mg by mouth 2 times daily with meals. Active cetirizine (ZyrTEC) 10 mg tablet Take 10 mg by mouth daily. Active citalopram (CeleXA) 40 mg tablet Take 40 mg by mouth daily. Active lisinopril-hyd roCHLOROthiazi de (ZESTORETIC) 10-12.5 mg tablet Take 1 Tablet by mouth daily. Active pantoprazole (PROTONIX) 40 mg Tablet, Delayed Release (E.C.) Take 40 mg by mouth daily. Active hydrOXYzine HCL (ATARAX) 25 mg tablet Take 50 mg by mouth daily at bedtime. Active predniSONE (DELTASONE) 20 mg tablet Take 20 mg by mouth 2 times daily as needed. Active metFORMIN (GLUCOPHAGE) 500 mg tablet Take 500 mg by mouth 2 times daily with meals. Active glimepiride (AMARYL) 4 mg tablet Take 4 mg by mouth daily with breakfast. Active TESTOSTERONE CYPIONATE IM Inject by intramuscular injection. Active testosterone cypionate (DEPO-TESTOSTE ARIK) 200 mg/mL Oil Inject 200 mg by intramuscular injection every 28 days. Active loratadine (CLARITIN) 10 mg tablet Take 10 mg by mouth daily. Active cpap medical driver ResMed VPAP-S @ IPAP 12 cwp, EPAP 8 cwp, Timin 0.7 s, Timax 1.8 s, tirgger medium, cycle medium, with heated humidifier. Length of need:99 months; per patient comfort mask with headgear every 6 months; mask only every 3 months; as needed cushions per month; Tubing heated 1 every 3 months, water chamber 1 every 6 months, chin strap 1 every 6 months, filters disposable 2 per month, filters reusable 1 per 6 months. Efficacy data download feature and mask fitting. 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 Gender Identity Not on file Sexual Orientation Not on file Last Filed Vital Signs Vital Sign Reading Time Taken Comments Blood Pressure 139/81 01/10/2021 11:35 AM ABORIGINAL COMMUNITY COUNCIL MEMBER Pulse 92 01/10/2021 11:35 AM ABORIGINAL COMMUNITY COUNCIL MEMBER Temperature 36.8 C (98.2 F) 11/05/2019 9:30 AM CDT Respiratory Rate 21 11/05/2019 9:30 AM CDT Oxygen Saturation 97% 01/10/2021 11:35 AM ABORIGINAL COMMUNITY COUNCIL MEMBER Inhaled Oxygen Concentration - - Weight 121.1 kg (267 lb) 01/10/2021 11:35 AM ABORIGINAL COMMUNITY COUNCIL MEMBER Height 180.3 cm (5' 11 ) 01/10/2021 11:35 AM ABORIGINAL COMMUNITY COUNCIL MEMBER Body Mass Index 37.24 01/10/2021 11:35 AM ABORIGINAL COMMUNITY COUNCIL MEMBER Plan of Treatment Health Maintenance Due Date Last Done Comments HEPATITIS B VACCINES (1 of 3 - 19+ 3-dose series) 05/13 COLORECTAL SCREENING 2014 Colorectal Cancer Screening 2014 FIT-DNA Q 3 years 2014 FIT/FOBT Q 1 year 2014 Flex Sig/CT Colonography Q 5 years 2014 ZOSTER VACCINE (1 of 2) 06/03/2019 INFLUENZA VACCINE (#1) 2024 DTAP/TDAP/TD VACCINES (2 - Td or Tdap) 11/04/2029 Insurance [employer] EXCHANGE [id number] [id number] * Guarantor: [id number] Account Type Relation to Patient Date of Phone Billing Address Workers Comp Employer Care Teams Hook And Eye Sewing Machine Operator Relationship Specialty Start Date End Date Amari Rosales MD [address] [address] PCP - General Family Practice 01/10/21
--- OUTSIDE RECORDS SUMMARY | 2024-08-12 16:32 | XMS_ITS | Encounter Summary ---
Author Organization [facility] Address [address] [place] [address] Care Team Providers Care Brick Baker Name Role Phone Amari Rosales MD Primary Care Provider [phone] Encounter Details Date Type Department Care Team (Latest Contact Info) Description 03/25/2001 Outpatient Historical [facility] Family Medicine [address] [phone] Anuel Cruz, NO ADDRESS ON FILE EXAM-MEDICOLEGAL REASONS (Primary Dx) Social History Tobacco Use Types Packs/Day Years Used Date Smoking Tobacco: Never Assessed Sex and Gender Information Value Date Recorded Sex Assigned at Not on file 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
--- OUTSIDE RECORDS SUMMARY | 2024-08-12 16:32 | XMS_ITS | Patient Health Record ---
Author Organization [facility] Address [address] [place] [address] Care Team Providers Care News Clerk Name Role Phone Leola Poe Primary Care Provider Reason For Referral No Information Medications Medication SIG (Take, Route, Frequency, Duration) Notes Start Date End Date Status cetirizine hydrochloride 10 MG Oral Tablet cetirizine hydrochloride 10 MG Oral Tablet 8 02/11/18 Active Hydrochlorothiazide 12.5 MG / Lisinopril 10 MG Oral Tablet Hydrochlorothiazide 12.5 MG / Lisinopril 10 MG Oral Tablet 8 02/11/18 Active testosterone cypionate 100 MG/ML Injectable Solution testosterone cypionate 100 MG/ML Injectable Solution 8 02/11/18 Active pantoprazole 40 MG Enteric Coated Tablet pantoprazole 40 MG Enteric Coated Tablet 8 02/11/18 Active Loratadine 10 MG Oral Tablet Loratadine 10 MG Oral Tablet 8 02/11/18 Active 0.5 ML dulaglutide 1.5 MG/ML Prefilled Syringe 0.5 ML dulaglutide 1.5 MG/ML Prefilled Syringe 8 02/11/18 Active Immunizations Vaccine Route Administration Date Status Comme nts Influenza (whole), CPT 28556 Inactive Unknown 04/02/2017 Administered Plan Of Treatment No Information
--- OUTSIDE RECORDS SUMMARY | 2024-08-12 16:32 | XMS_ITS | Encounter Summary ---
Author Organization [facility] Address [address] [place] [address] Care Team Providers Care Chemical Sprayer Name Role Phone Amari Rosales MD Primary Care Provider [phone] Encounter Details Date Type Department Care Team (Latest Contact Info) Description 08/10/2003 Outpatient Historical [facility] General Surgery [address] [address] [address] [place] [address] [place] [address] [facility] [address] [place] [phone] OTHER INJURY OF ABDOMEN (Primary Dx) Social History Tobacco Use Types Packs/Day Years Used Date Smoking Tobacco: Never Assessed Sex and Gender Information Value Date Recorded Sex Assigned at Not on file 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
--- OUTSIDE RECORDS SUMMARY | 2024-08-12 16:32 | XMS_ITS | Clinical Summary ---
Author Organization [facility] Address [address] [place] [address] Phone Care Team Providers Care Marble Setter Helper Name Role Phone Amari Rosales MD Primary Care Provider [phone] Allergies No known active allergies Medications No known medications Immunizations Immunization Administration Dates Next Due (ADACEL/BOOSTRIX)(10 YR UP) TDAP VACCINE, 0.5ML, IM 11/05/2019 Social History Tobacco Use Types Packs/Day Years Used Date Smoking Tobacco: Every Day Smokeless Tobacco: Never Sex and Gender Information Value Date Recorded Sex Assigned at Not on file Legal Sex Male 4:23 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 Gender Identity Not on file Sexual Orientation Not on file Last Filed Vital Signs Vital Sign Reading Time Taken Comments Blood Pressure 146/81 11/05/2019 9:30 AM CDT Pulse 97 11/05/2019 9:30 AM CDT Temperature 36.8 C (98.2 F) 11/05/2019 9:30 AM CDT Respiratory Rate 21 11/05/2019 9:30 AM CDT Oxygen Saturation 96% 11/05/2019 9:30 AM CDT Inhaled Oxygen Concentration - - Weight 118.8 kg (262 lb) 11/05/2019 9:42 AM CDT Height 182.9 cm (6') 11/05/2019 9:42 AM CDT Body Mass Index 35.53 11/05/2019 9:42 AM CDT Plan of Treatment Health Maintenance Due Date Last Done Comments HEPATITIS B VACCINES (1 of 3 - 19+ 3-dose series) 05/13 COLORECTAL SCREENING 2014 Colorectal Cancer Screening 2014 FIT-DNA Q 3 years 2014 FIT/FOBT Q 1 year 2014 Flex Sig/CT Colonography Q 5 years 2014 ZOSTER VACCINE (1 of 2) 06/03/2019 INFLUENZA VACCINE (#1) 2023 DTAP/TDAP/TD VACCINES (2 - Td or Tdap) 11/04/2029 Insurance [employer] EXCHANGE [place] Care Teams Marble Setter Helper Relationship Specialty Start Date End Date mAari Rosales MD [address] [place] [address] PCP - General Family Practice 11/05/19
--- OUTSIDE RECORDS SUMMARY | 2024-08-12 16:32 | XMS_ITS | Encounter Summary ---
Author Organization [facility] Address [address] [place] [address] Care Team Providers Care Medical Payment Poster Name Role Phone Amari Rosales MD Primary Care Provider [phone] Encounter Details Date Type Department Care Team (Latest Contact Info) Description 08/10/2003 Outpatient Historical [facility] Family Medicine [address] [phone] Katarzyna Starks MD NO ADDRESS ON FILE ABDOMINAL PAIN RUQ (Primary Dx); ABDOMINAL PAIN RLQ Social History Tobacco Use Types Packs/Day Years Used Date Smoking Tobacco: Never Assessed Sex and Gender Information Value Date Recorded Sex Assigned at Not on file 

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
--- NOTE | 2024-08-12 16:39 | W.ED.ARRPALP ---
HPI - Arrhythmia/Palpitations General: Chief Complaint: Arrhythmia/Palpitations Stated Complaint: Chest Pain Time Seen by Provider: 08/12/24 16:25 History of Present Illness: 54-year-old man with history of PTSD, depression, tobacco dependence, Sjogren syndrome, sleep apnea, hypertension, obesity and diabetes who presents to the emergency room after having an episode of near syncope with chest palpitations. 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 He was sitting on the floor and lifted a Tomás tire onto a truck and then stood up. He says after he stood up he got very lightheaded and almost passed out and his heart was pounding. EMS reports he was tachycardic on their presentation and appeared to be in sinus at about 120. Heart rate is in the 90s and regular on presentation here. Related Data Home Medications ?Medication ?Instructions ?Recorded ?Confirmed loratadine 10 mg tablet (Claritin) 10 mg PO BEDTIME 05/26/19 08/06/24 cetirizine 10 mg tablet (Zyrtec) 10 mg PO QAM 10/10/20 08/06/24 glimepiride 4 mg tablet 4 mg PO QAM 10/10/20 08/06/24 lisinopril 10 1 tab PO QAM 10/10/20 08/06/24 mg-hydrochlorothiazide 12.5 mg tablet pantoprazole 40 mg tablet,delayed 40 mg PO DAILY 10/10/20 08/06/24 release (Protonix) citalopram 40 mg tablet 40 mg PO 1XD 06/14/21 08/06/24 hydroxyzine HCl 10 mg tablet 10 mg PO .q hs 04/07/24 08/06/24 mupirocin 2 % topical ointment 1 applic topical BID 04/15/24 08/06/24 semaglutide 0.25 mg or 0.5 mg (2 0.25 mg SUBCUT Q7D 04/15/24 08/06/24 mg/3 mL) subcutaneous pen injector (Ozempic) Previous Rx's ?Medication ?Instructions ?Recorded celecoxib 200 mg capsule (Celebrex) 200 mg PO BID #60 caps 07/15/24 etanercept 50 mg/mL (1 mL) 50 mg SUBCUT .Q7days #4 mL 07/15/24 subcutaneous pen injector (Enbrel SureClick) tramadol 50 mg tablet 50 mg PO TID PRN pain #60 tabs 07/15/24 tramadol 50 mg tablet 50 mg PO TID PRN pain 7 days #21 07/15/24 tabs Allergies Allergy/AdvReac Type Severity Reaction Status Date / Time Sulfa (Sulfonamide Allergy rash Verified 08/12/24 16:38 Antibiotics) Review of Systems Narrative: Constitutional symptoms: Negative except as documented in HPI. Skin symptoms: Negative except as documented in HPI. Eye symptoms: Negative except as documented in HPI. ENMT symptoms: Negative except as documented in HPI. Respiratory symptoms: Negative except as documented in HPI. Cardiovascular symptoms: Negative except as documented in HPI. Gastrointestinal symptoms: Negative except as documented in HPI. Genitourinary symptoms: Negative except as documented in HPI. Musculoskeletal symptoms: Negative except as documented in HPI. Neurologic symptoms: Negative except as documented in HPI. Psychiatric symptoms: Negative except as documented in HPI. Endocrine symptoms: Negative except as documented in HPI. PFS ED PFSH: Medical History Post traumatic stress disorder (PTSD) Major depressive disorder, single episode, moderate with anxious distress Tobacco use disorder, severe, dependence Psychiatric care Seasonal allergies GERD (gastroesophageal reflux disease) Joint pain Immunization counseling High risk medication use Primary Sjogren's syndrome Seronegative rheumatoid arthritis of both hands Tobacco dependence Severe sleep apnea Hypertension Diabetes Surgical History History of back surgery Trigger finger, right ring finger Trigger finger, right index finger Carpal tunnel syndrome, left Family History Other Bipolar disorder Brain cancer Diabetes Heart disease Hypertension Lung cancer Schizophrenia Seizure disorder Skin cancer Denies family history of Clotting disorder Anesthesia complication Bleeding disorder Social History Smoking and tobacco/nicotine status: current every day tobacco/nicotine user (1 pack per day - 48 year smoker) cigarettes Packs smoked per day: 1.5 Years cigarettes smoked: 48 Quit status (tobacco/nicotine): not considering quitting Second hand smoke exposure: Yes Alcohol intake: never Substance/Drug Use: never Adopted: No Caregiver/support person: No Lives independently: Yes Household members: spouse Housing: Manufactured/Mobile home Marital status: Number of children: 1 Number of grandchildren: 2 Highest education level completed: GED or Equivalent service: No Current occupational status: other Current occupation: trying to get disability Pets and animals: Yes Pets & animals: cat(s) and dog(s) Leisure activites: games Current gender identity: Male Elena/Voodoo: Judaism Special elena needs: No Agree to transfusion: Yes Physical Exam Narrative: EXAM NARRATIVE: General: Alert, no acute distress. Skin: Warm, dry. Head: Normocephalic, atraumatic. Neck: Supple, trachea midline. Eye: Extraocular movements are intact. Ears, nose, mouth and throat: mucosa moist. Cardiovascular: Regular, Normal peripheral perfusion. Respiratory: Lungs are clear to auscultation, respirations are non-labored, breath sounds are equal, Symmetrical chest wall expansion. Gastrointestinal: Soft, Nontender, Non distended Musculoskeletal: Normal ROM, no deformity. Neurological: Alert and oriented, No focal neurological deficit observed. Psychiatric: Cooperative, appropriate mood & affect. Course Vital Signs: Vital signs: Vital Signs Temperature 98.0 F 08/12/24 16:35 Pulse Rate 75 08/12/24 20:00 Respiratory Rate 19 H 08/12/24 20:00 Blood Pressure 113/59 08/12/24 20:00 Pulse Oximetry 91 08/12/24 20:00 Oxygen Delivery Me thod Room Air 08/12/24 20:00 MDM - Arrhythmia/Palpitations Medical Decision Making Medical decision making: Differential diagnosis including but not limited to and based on the above HPI, review of systems and physical exam: for patient with palpitations: atrial fibrillation with rapid ventricular response. ventricular tachycardia. sinus tachycardia. PVCs. also concern for underlying issues causing tachycardia. Infection, electrolyte abnormalities and thyroid issues. Orders placed to evaluate differential diagnosis based on the above differential, HPI and physical exam EKG: Time 1827. Rate 95. Normal sinus rhythm, nonspecific ST changes, no ectopy, normal SD & QRS intervals, This was reviewed and interpreted by myself the ER physician at 1830 Chest x-ray: No acute process. No infiltrate. No pneumothorax. This was reviewed and interpreted by myself the emergency room physician. I also reviewed the radiology report. Lab Review: Laboratory results were reviewed and interpreted by myself the emergency room physician. No leukocytosis. No anemia. No renal failure. Although BUN and creatinine are slightly elevated. Fluids are given. I reviewed the patient's medical record. Reexamination: Patient feels much better. No tachycardia no dysrhythmias. No shortness of breath. He states he is ready to go home. Assessment and plan: Near syncope Palpitations Dehydration ? IV fluids. Patient feeling better. - Discharged home - Discussed plan with patient. Answered any questions. - Evaluation and treatment of this problem were appropriate in the emergency setting. Lab Data 08/12/24 17:44 08/12/24 16:08 Radiology Impressions Chest X-Ray 08/12/24 16:25 IMPRESSION: No acute cardiopulmonary process. Laboratory Results WBC 9.92 10^3/uL (3.29-11.43) 08/12/24 17:44 Corrected WBC Cancelled 08/12/24 16:08 RBC 4.39 10^6/uL (3.85-5.65) 08/12/24 17:44 Hgb 12.60 g/dL (11.27-16.99) 08/12/24 17:44 Hct 39.3 % (37-53) 08/12/24 17:44 MCV 89.5 fl (82-101) 08/12/24 17:44 MCH 28.7 pg (27-33) 08/12/24 17:44 MCHC 32.1 g/dL (30-55) 08/12/24 17:44 RDW 15.8 % (12.1-15.1) H 08/12/24 17:44 Plt Count 156 10^3/cmm (157-399) L 08/12/24 17:44 MPV 10.4 fL (7.4-10.4) 08/12/24 17:44 Gran % Cancelled 08/12/24 16:08 Neut % (Auto) 50.1 % 08/12/24 17:44 Lymph % (Auto) 36.4 % 08/12/24 17:44 [place] % (Auto) 9.0 % 08/12/24 17:44 Eos % (Auto) 3.5 % 08/12/24 17:44 Baso % (Auto) 0.5 % 08/12/24 17:44 Neut # (Auto) 4.97 10^3/uL (1.8-7.7) 08/12/24 17:44 Lymph # (Auto) 3.6 10^3/uL (0.8-4.8) 08/12/24 17:44 [place] # (Auto) 0.9 10^3/uL (0.2-0.9) 08/12/24 17:44 Eos # (Auto) 0.4 10^3/uL (0.0-0.8) 08/12/24 17:44 Baso # (Auto) 0.1 10^3/uL (0.0-0.1) 08/12/24 17:44 Absolute Gran (auto) Cancelled 08/12/24 16:08 Nucleated RBC % (auto) 0 % 08/12/24 17:44 Nucleated RBCs # 0.0 /100WBC 08/12/24 17:44 Sodium 138 mmol/L (136-145) 08/12/24 16:08 Potassium 3.9 mmol/L (3.5-5.1) 08/12/24 16:08 Chloride 100 mmol/L (98-107) 08/12/24 16:08 Carbon Dioxide 22 mmol/L (22-29) 08/12/24 16:08 Anion Gap 19.9 (5-19) H 08/12/24 16:08 BUN 17 mg/dL (6-20) 08/12/24 16:08 Creatinine 1.1 mg/dL (0.7-1.2) 08/12/24 16:08 GFR Calculation 69.5 mL/min (90-130) L 08/12/24 16:08 Glucose 204 mg/dL (65-115) H 08/12/24 16:08 Calculated Osmolality 293 mOsm/kg (285-295) 08/12/24 16:08 Calcium 9.1 mg/dL (8.5-10.5) 08/12/24 16:08 Total Bilirubin 0.6 mg/dL (0.15-1.2) 08/12/24 16:08 AST 67 U/L (0-40) H 08/12/24 16:08 ALT 35 U/L (0-41) 08/12/24 16:08 Alkaline Phosphatase 158 U/L (40-130) H 08/12/24 16:08 Troponin T Baseline 12 ng/L (0-15) 08/12/24 16:08 Troponin T 120 Minute 10.73 ng/L (0-15) 08/12/24 17:44 Delta Troponin T -1.27 ABS# (0-10) L 08/12/24 17:44 NT-Pro-B Natriuret Pep < 36 pg/mL (0-125) 08/12/24 16:08 Total Protein 7.6 g/dL (6.6-8.7) 08/12/24 16:08 Albumin 3.9 g/dL (3.5-5.2) 08/12/24 16:08 Globulin 3.7 g/dL (1.3-4.6) 08/12/24 16:08 All radiology interpretation(s) finalized by discharge Discharge Plan Discharge Patient Disposition: Home Clinical Impression: Palpitations, Near syncope Condition: Stable Prescriptions: No Action hydroxyzine HCl 10 mg tablet 10 mg PO .q hs celecoxib [Celebrex] 200 mg capsule 200 mg PO BID Qty: 60 3RF tramadol 50 mg tablet 50 mg PO TID PRN (Reason: pain) 7 Days Qty: 21 0RF tramadol 50 mg tablet 50 mg PO TID PRN (Reason: pain) Qty: 60 1RF Enbrel SureClick 50 mg/mL (1 mL) pen injector 50 mg SUBCUT .Q7days Qty: 4 5RF cetirizine [Zyrtec] 10 mg Tablet 10 mg PO QAM pantoprazole [Protonix] 40 mg Tablet,Delayed Release (Dr/Ec) 40 mg PO DAILY glimepiride 4 mg Tablet 4 mg PO QAM lisinopril-hydrochlorothiazide 10-12.5 mg Tablet 1 tab PO QAM loratadine [Claritin] 10 mg tablet 10 mg PO BEDTIME mupirocin 2 % ointment 1 applic TOPICAL BID Ozempic 0.25 mg or 0.5 mg (2 mg/3 mL) pen injector 0.25 mg SUBCUT Q7D citalopram 40 mg tablet 40 mg PO 1XD Discharge Orders: Discharge ED (Routine); Ordered 08/12/24 Ordered By: Kari Jack Referrals: Amari Rosales MD [Primary Care Provider, Family Practice] Discharge Diet: As Directed Discharge Activity: Increase activity as tolerated Patient Instructions: Near Syncope (ED), Opioid Safety, Pain Management, Patient Portal & Suhail Instructions Activity Restrictions/Additional Instructions: Thank you for choosing [facility] for your healthcare needs today. You have been screened and evaluated and felt safe for discharge. Health conditions do change or evolve sometimes and as such it is important that you follow up with your Primary Doctor to be re checked, 3-5 days is a general good time frame for follow up. You are always welcome to return to the ED for re assessment if your symptoms are worsening or you have new concerns Print Language: Slovak Coding Level of Care Code ED Mediator for Olvin Bolivar
[2024-08-12 17:36] LABS: Troponin(5th) Baseline 12 ng/L (0-15)
[2024-08-12 17:45] LABS: Alanine Aminotransferase 35 U/L (0-41); Albumin Level 3.9 g/dL (3.5-5.2); Alkaline Phosphatase 158 U/L (40-130); Anion Gap 19.9 (5-19); Aspartate Amino Transferase 67 U/L (0-40); Blood Urea Nitrogen 17 mg/dL (6-20); Calcium 9.1 mg/dL (8.5-10.5); Carbon Dioxide 22 mmol/L (22-29); Chloride 100 mmol/L (98-107); Creatinine Clr Calc Pharmacy 102.2322; Globulin 3.7 g/dL (1.3-4.6); Glucose 204 mg/dL (65-115); NT Pro B Type Natriuretic Pept < 36 pg/mL (0-125); Osmolality Calculated 293 mOsm/kg (285-295); Potassium 3.9 mmol/L (3.5-5.1); Sodium 138 mmol/L (136-145); Total Protein 7.6 g/dL (6.6-8.7)
--- NOTE | 2024-08-12 17:49 | PC.NURSE ---
Addendum entered by Sabine Matson LPN 08/12/24 17:49: Dr. Jack notified and aware. Original Note: Pt c/o severe headache and My arms and legs feel really heavy.
[2024-08-12 17:52] LABS: Hematocrit 39.3 % (37-53); Hemoglobin 12.60 g/dL (11.27-16.99); Mean Corpuscular HGB Conc 32.1 g/dL (30-55); Mean Corpuscular Hemoglobin 28.7 pg (27-33); Mean Corpuscular Volume 89.5 fl (82-101); Nucleated Red Blood Cells % 0 %; Platelet Count 156 10^3/cmm (157-399); Red Blood Count 4.39 10^6/uL (3.85-5.65); White Blood Count 9.92 10^3/uL (3.29-11.43)
[2024-08-12] MEDS: morphine 4 mg/mL SDV 1 mL 2 MG IVP (17:53)
[2024-08-12] MEDS: acetaminophen 1,000 MG/100 ML PIGGYBACK 400 MG IV (17:54)
--- NOTE | 2024-08-12 18:06 | ECG_ITS ---
[employer] Test Date: 2024-08-12 Pat Name: Lionel Knuston Department: Room: Gender: Male Pipe Testing Technician: : 1970 Requested By: Kari Kaplan Order Number: [id number] Gaines MD: Nj Melendez M.D. Measurements Intervals Cook Sta Rate: 85 P: 42 KS: 154 QRS: 81 QRSD: 107 T: 51 QT: 384 QTc: 458 Interpretive Statements SINUS RHYTHM POSSIBLE LEFT ATRIAL ENLARGEMENT [-0.1mV P-WAVE IN V1/V2] POSSIBLE INFERIOR MYOCARDIAL INFARCTION , PROBABLY OLD [30 ms Q WAVE IN II/aVF] Compared to ECG 08/12/2024 16:28:32 No significant changes Electronically Signed On 08-13-2024 09:29:47 CDT by Nj Melendez M.D. [email or web address]
[2024-08-12 18:10] LABS: Troponin 5 2HR 10.73 ng/L (0-15)
[2024-08-12 18:11] LABS: Troponin 5 2HR Delta -1.27 ABS# (0-10)
== END 2024-08-12 20:51 | disposition home or self-care (01) ==
PROVIDERS: Emergency Provider Emergency Medicine; PCP Family Medicine
DX: R00.2 Palpitations (principal); R55 Syncope and collapse; F17.210 Nicotine dependence, cigarettes, uncomplicated; E11.9 Type 2 diabetes mellitus without complications; I10 Essential (primary) hypertension
CPT/HCPCS: 36415; 71045; 80053; 83880; 84484; 85025; 93005; 96365; 96375; 99285; J0131; J2270; J7030

== ENCOUNTER 2024-09-18 13:00 | Outpatient (CLI) | payer MEDICAID, SELFPAY ==
[2024-04-09 10:26] VITALS: BP 174/90; BMI 36.3
[2024-09-18 13:36] LABS: Hematocrit 39.5 % (37-53); Hemoglobin 12.50 g/dL (11.27-16.99); Mean Corpuscular HGB Conc 31.6 g/dL (30-55); Mean Corpuscular Hemoglobin 27.5 pg (27-33); Mean Corpuscular Volume 86.8 fl (82-101); Nucleated Red Blood Cells % 0 %; Platelet Count 127 10^3/cmm (157-399); Red Blood Count 4.55 10^6/uL (3.85-5.65); White Blood Count 6.22 10^3/uL (3.29-11.43)
[2024-09-18 14:02] LABS: Alanine Aminotransferase 34 U/L (0-41); Albumin Level 3.6 g/dL (3.5-5.2); Alkaline Phosphatase 169 U/L (40-130); Aspartate Amino Transferase 48 U/L (0-40); Globulin 3.9 g/dL (1.3-4.6); Total Protein 7.5 g/dL (6.6-8.7)
== END 2024-09-18 13:01 | disposition home or self-care (01) ==
LOC: LAB 13:02
PROVIDERS: PCP Family Medicine; Visit Provider Internal Medicine Rheumatology
DX: Z79.899 Other long term (current) drug therapy (principal)
CPT/HCPCS: 80076; 82565; 85025; 85651; 86140

== ENCOUNTER 2024-10-22 10:13 | Outpatient (CLI) | payer MEDICAID, SELFPAY ==
[2024-04-09 10:26] VITALS: BP 174/90; BMI 36.3
[2024-10-22 11:20] LABS: Hematocrit 41.3 % (37-53); Hemoglobin 12.90 g/dL (11.27-16.99); Mean Corpuscular HGB Conc 31.2 g/dL (30-55); Mean Corpuscular Hemoglobin 26.9 pg (27-33); Mean Corpuscular Volume 86.0 fl (82-101); Nucleated Red Blood Cells % 0 %; Platelet Count 142 10^3/cmm (157-399); Red Blood Count 4.80 10^6/uL (3.85-5.65); White Blood Count 6.18 10^3/uL (3.29-11.43)
== END 2024-10-22 10:14 | disposition home or self-care (01) ==
PROVIDERS: PCP Family Medicine; Visit Provider Internal Medicine Rheumatology
DX: D69.6 Thrombocytopenia, unspecified (principal)
CPT/HCPCS: 36415; 85025

== ENCOUNTER 2024-10-28 10:15 | Emergency (ER) | payer MEDICAID, SELFPAY ==
[2024-04-09 10:26] VITALS: BP 174/90; BMI 36.3
--- OUTSIDE RECORDS SUMMARY | 2024-10-28 10:19 | XMS_ITS | Encounter Summary ---
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
--- OUTSIDE RECORDS SUMMARY | 2024-10-28 10:19 | XMS_ITS | Encounter Summary ---
Author Organization [facility] Address [address] [place] [address] Care Team Providers Care Teaching Pastor Name Role Phone Amari Rosales MD Primary Care Provider [phone] Encounter Details Date Type Department Care Team (Latest Contact Info) Description 01/16/1999 Outpatient Historical [facility] Arsenio Terry NO ADDRESS ON FILE Acute sinusitis, unspecified (Primary Dx); Pain in joint, shoulder region Social History Tobacco Use Types Packs/Day Years Used Date Smoking Tobacco: Never Assessed Sex and Gender Information Value Date Recorded Sex Assigned at Not on file 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
--- OUTSIDE RECORDS SUMMARY | 2024-10-28 10:19 | XMS_ITS | Encounter Summary ---
Author Organization [facility] Address [address] [place] [address] Care Team Providers Care Making Machine Catcher Name Role Phone Amari Rosales MD Primary Care Provider [phone] Encounter Details Date Type Department Care Team (Latest Contact Info) Description 03/25/2001 Outpatient Historical [facility] General Surgery [address] [address] [address] [place] [address] [place] [address] [facility] [address] [place] [address] [id number] OPEN WOUND OF HIP/THIGH (Primary Dx) Social History Tobacco Use Types Packs/Day Years Used Date Smoking Tobacco: Never Assessed Sex and Gender Information Value Date Recorded Sex Assigned at Not on file 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
--- OUTSIDE RECORDS SUMMARY | 2024-10-28 10:19 | XMS_ITS | Encounter Summary ---
Author Organization [facility] Address [address] [place] [address] Care Team Providers Care Case Manager Specialist Name Role Phone Amari Rosales MD Primary Care Provider [phone] Encounter Details Date Type Department Care Team (Latest Contact Info) Description 08/09/[address] 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
--- OUTSIDE RECORDS SUMMARY | 2024-10-28 10:19 | XMS_ITS | Encounter Summary ---
Author Organization [facility] Address [address] [place] [address] Care Team Providers Care Clerical Car Checker Name Role Phone Amari Rosales MD Primary Care Provider [phone] Encounter Details Date Type Department Care Team (Latest Contact Info) Description 04/16/2003 Outpatient Historical [facility] Family Medicine [place] [address] [facility] [address] [place] [phone] Rafy Spann MD [address] [facility] [address] [place] [address] SPRAIN OF BACK NOS (Primary Dx) Social History Tobacco Use Types Packs/Day Years Used Date Smoking Tobacco: Never Assessed Sex and Gender Information Value Date Recorded Sex Assigned at Not on file 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
--- OUTSIDE RECORDS SUMMARY | 2024-10-28 10:19 | XMS_ITS | Encounter Summary ---
Author Organization [facility] Address [address] [place] [address] Care Team Providers Care Chinese Medicine Practitioner Name Role Phone Amari Rosales MD Primary Care Provider [phone] Encounter Details Date Type Department Care Team (Latest Contact Info) Description 09/08/1999 Outpatient Historical [facility] Arsenio Terry NO ADDRESS ON FILE Dermatitis due to plant (Primary Dx) Social History Tobacco Use Types Packs/Day Years Used Date Smoking Tobacco: Never Assessed Sex and Gender Information Value Date Recorded Sex Assigned at Not on file 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
--- OUTSIDE RECORDS SUMMARY | 2024-10-28 10:19 | XMS_ITS | Encounter Summary ---
Author Organization [facility] Address [address] [place] [address] Care Team Providers Care Map Mounter Name Role Phone Amari Rosales MD Primary Care Provider [phone] Encounter Details Date Type Department Care Team (Latest Contact Info) Description 09/12/1999 Outpatient Historical HIS [facility] Arsenio Terry NO ADDRESS ON FILE Contusion of foot (Primary Dx) Social History Tobacco Use Types Packs/Day Years Used Date Smoking Tobacco: Never Assessed Sex and Gender Information Value Date Recorded Sex Assigned at Not on file Legal Sex Male 4:23 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
--- OUTSIDE RECORDS SUMMARY | 2024-10-28 10:19 | XMS_ITS | Encounter Summary ---
Author Organization [facility] Address [address] [place] [address] Care Team Providers Care Social Service Coordinator Name Role Phone Amari Rosales MD Primary Care Provider [phone] Encounter Details Date Type Department Care Team (Latest Contact Info) Description 03/25/2001 Outpatient Historical [facility] Family Medicine [address] [id number] Anuel Cruz, NO ADDRESS ON FILE EXAM-MEDICOLEGAL REASONS (Primary Dx) Social History Tobacco Use Types Packs/Day Years Used Date Smoking Tobacco: Never Assessed Sex and Gender Information Value Date Recorded Sex Assigned at Not on file Legal Sex Male 4:23 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
--- OUTSIDE RECORDS SUMMARY | 2024-10-28 10:19 | XMS_ITS | Clinical Summary ---
Author Organization 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
--- OUTSIDE RECORDS SUMMARY | 2024-10-28 10:19 | XMS_ITS | Clinical Summary ---
Author Organization [facility] Address [address] [place] [address] Phone Care Team Providers Care Armhole Sewer Name Role Phone Amari Rosales MD Primary Care Provider [phone] Allergies Active Allergy Reactions Criticality Noted Date [...] 10 mg by mouth daily. Active cpap clinical laboratory medical director [employer] VPAP-S @ IPAP 12 cwp, EPAP [...] on file Legal Sex Male 2:53 PM WEATHERIZATION FIELD TECHNICIAN Gender Identity Not on file Sexual Orientation Not on file Last Filed Vital Signs Vital Sign Reading Time Taken Comments Blood Pressure 139/81 01/10/2021 11:35 AM WEATHERIZATION FIELD TECHNICIAN Pulse 92 01/10/2021 11:35 AM WEATHERIZATION FIELD TECHNICIAN Temperature 36.8 C (98.2 F) 11/05/2019 9:30 AM CDT Respiratory Rate 21 11/05/2019 9:30 AM CDT Oxygen Saturation 97% 01/10/2021 11:35 AM WEATHERIZATION FIELD TECHNICIAN Inhaled Oxygen Concentration - - Weight 121.1 kg (267 lb) 01/10/2021 11:35 AM WEATHERIZATION FIELD TECHNICIAN Height 180.3 cm (5' 11 ) 01/10/2021 11:35 AM WEATHERIZATION FIELD TECHNICIAN Body Mass Index 37.24 01/10/2021 11:35 AM WEATHERIZATION FIELD TECHNICIAN Plan of Treatment Health Maintenance Due Date [...] (2 - Td or Tdap) 11/04/2029 Insurance [employer] EXCHANGE [id number] [id number] * Guarantor: [id number] Account Type Relation to Patient Date of Phone Billing Address Workers Comp Employer Care Teams Armhole Sewer Relationship Specialty Start Date End Date Amari Rosales MD [address] [address] PCP - General Family Practice 01/10/21
--- OUTSIDE RECORDS SUMMARY | 2024-10-28 10:19 | XMS_ITS | Encounter Summary ---
Author Organization [facility] Address [address] [place] [address] Care Team Providers Care African Studies Professor Name Role Phone Amari Rosales MD Primary Care Provider [phone] Encounter Details Date Type Department Care Team (Latest Contact Info) Description 08/10/2003 Outpatient Historical [facility] Family Medicine [address] [phone] Katarzyna Starks MD NO ADDRESS ON FILE ABDOMINAL PAIN RUQ (Primary Dx); ABDOMINAL PAIN RLQ Social History Tobacco Use Types Packs/Day Years Used Date Smoking Tobacco: Never Assessed Sex and Gender Information Value Date Recorded Sex Assigned at Not on file 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
--- OUTSIDE RECORDS SUMMARY | 2024-10-28 10:19 | XMS_ITS | Encounter Summary ---
Author Organization [facility] Address [address] [place] [address] Care Team Providers Care Energy Director Name Role Phone Amari Rosales MD Primary Care Provider [phone] Encounter Details Date Type Department Care Team (Latest Contact Info) Description 04/08/2001 Outpatient Historical [facility] General Surgery [address] [address] [address] [place] [address] [place] [address] [facility] [address] [place] [phone] POSTSURGICAL STATES NEC (Primary Dx) Social History Tobacco Use Types Packs/Day Years Used Date Smoking Tobacco: Never Assessed Sex and Gender Information Value Date Recorded Sex Assigned at Not on file 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
--- OUTSIDE RECORDS SUMMARY | 2024-10-28 10:19 | XMS_ITS | Patient Health Record ---
Author Organization [facility] Address [address] [place] [address] Care Team Providers Care Insurance Claims Clerk Name Role Phone Fransisco Starr Primary Care Provider [phone] Reason For Referral No Information Problems No Known Problems Plan Of Treatment No Information Insurance Providers Payer Name Payer Address Payer Phone Subscriber Number Group Number Insured Name Patient Relationship to Insured Coverage Start Date Coverage End Date National Med Test [address] [facility] [place] [phone] Lionel Knutson Self - patient is the insured
--- OUTSIDE RECORDS SUMMARY | 2024-10-28 10:19 | XMS_ITS | Encounter Summary ---
Author Organization [facility] Address [address] [place] [address] Care Team Providers Care Medical Records Coder Name Role Phone Amari Rosales MD Primary Care Provider [phone] Encounter Details Date Type Department Care Team (Latest Contact Info) Description 08/10/2003 Outpatient Historical [facility] General Surgery [address] [address] [address] [place] [address] [place] [address] [facility] [address] [place] [address] [phone] OTHER INJURY OF ABDOMEN (Primary Dx) Social History Tobacco Use Types Packs/Day Years Used Date Smoking Tobacco: Never Assessed Sex and Gender Information Value Date Recorded Sex Assigned at Not on file 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
--- OUTSIDE RECORDS SUMMARY | 2024-10-28 10:19 | XMS_ITS | Patient Health Record ---
Author Organization [facility] Address [address] [place] [address] Care Team Providers Care District Home Economics Agent Name Role Phone Leola Poe Primary Care [...] Date Status Comme nts Influenza (whole), CPT 34578 Inactive Unknown 04/02/2017 Administered Social History Social History Additional Details Category Social Info Options Details zzMigrated Social History Migrated Social History Smoking Status:Heavy tobacco smoker (finding) Plan Of Treatment No Information
[2024-10-28 10:33] VITALS: BP 128/70; PULSE 84; TEMP 36.7; O2SAT 96
[2024-10-28 12:10] VITALS: PULSE 79; RESP 16; O2SAT 96
--- NOTE | 2024-10-28 12:35 | W.ED.SKABFB ---
HPI - Skin/Abscess/Foreign Bdy General: Chief complaint: Skin/Abscess/Foreign Body Stated complaint: bug bite, red, swollen, warm to touch, on L leg Time Seen by Provider: 10/28/24 11:46 History of Present Illness: 54-year-old male with a medical history significant for Sjogren syndrome, rheumatoid arthritis, smoker, chronic back pain, hypertension, diabetes, presenting to the emergency department with chronic wounds to the bilateral arms and legs over several months although more recently reports over the last day or 2 he has developed redness and pain to the inner aspect of his left calf around a wound that he is unsure of how long it has been present. No fevers, no recent travel or immobilization, no chest pain or shortness of breath. Related Data Home Medications ?Medication ?Instructions ?Recorded ?Confirmed loratadine 10 mg tablet (Claritin) 10 mg PO BEDTIME 05/26/19 08/06/24 cetirizine 10 mg tablet (Zyrtec) 10 mg PO QAM 10/10/20 08/06/24 glimepiride 4 mg tablet 4 mg PO QAM 10/10/20 08/06/24 lisinopril 10 1 tab PO QAM 10/10/20 08/06/24 mg-hydrochlorothiazide 12.5 mg tablet pantoprazole 40 mg tablet,delayed 40 mg PO DAILY 10/10/20 08/06/24 release (Protonix) citalopram 40 mg tablet 40 mg PO 1XD 06/14/21 08/06/24 hydroxyzine HCl 10 mg tablet 10 mg PO .q hs 04/07/24 08/06/24 mupirocin 2 % topical ointment 1 applic topical BID 04/15/24 08/06/24 semaglutide 0.25 mg or 0.5 mg (2 0.25 mg SUBCUT Q7D 04/15/24 08/06/24 mg/3 mL) subcutaneous pen injector (Ozempic) Previous Rx's ?Medication ?Instructions ?Recorded celecoxib 200 mg capsule (Celebrex) 200 mg PO BID #60 caps 07/15/24 tramadol 50 mg tablet 50 mg PO TID PRN pain #60 tabs 07/15/24 tramadol 50 mg tablet 50 mg PO TID PRN pain 7 days #21 07/15/24 tabs etanercept 50 mg/mL (1 mL) 50 mg SUBCUT .Q7days #4 mL 10/09/24 subcutaneous pen injector (Enbrel SureClick) clindamycin HCl 300 mg capsule 300 mg PO TID 10 days #30 caps 10/28/24 (Cleocin HCl) doxycycline hyclate 100 mg capsule 100 mg PO BID 10 days #20 caps 10/28/24 Allergies Allergy/AdvReac Type Severity Reaction Status Date / Time Sulfa (Sulfonamide Allergy rash Verified 10/28/24 10:37 Antibiotics) PFSH ED PFSH: Medical History Post traumatic stress disorder (PTSD) Major depressive disorder, single episode, moderate with anxious distress Tobacco use disorder, severe, dependence Psychiatric care Seasonal allergies GERD (gastroesophageal reflux disease) Joint pain Immunization counseling High risk medication use Primary Sjogren's syndrome Seronegative rheumatoid arthritis of both hands Tobacco dependence Severe sleep apnea Hypertension Diabetes Surgical History History of back surgery Trigger finger, right ring finger Trigger finger, right index finger Carpal tunnel syndrome, left Family History Other Bipolar disorder Brain cancer Diabetes Heart disease Hypertension Lung cancer Schizophrenia Seizure disorder Skin cancer Denies family history of Clotting disorder Anesthesia complication Bleeding disorder Social History Smoking and tobacco/nicotine status: current every day tobacco/nicotine user (1 pack per day - 48 year smoker) cigarettes Packs smoked per day: 1.5 Years cigarettes smoked: 48 Quit status (tobacco/nicotine): not considering quitting Second hand smoke exposure: Yes Alcohol intake: never Substance/Drug Use: never Adopted: No Caregiver/support person: No Lives independently: Yes Household members: spouse Housing: Manufactured/Mobile home Marital status: Number of children: 1 Number of grandchildren: 2 Highest education level completed: GED or Equivalent service: No Current occupational status: other Current occupation: trying to get disability Pets and animals: Yes Pets & animals: cat(s) and dog(s) Leisure activites: games Current gender identity: Male Elena/Anabaptist: Catholic Special elena needs: No Agree to transfusion: Yes Physical Exam Narrative: EXAM NARRATIVE: Gen: A&Ox4, no acute distress, nontoxic appearing HEENT: Normocephalic, atraumatic, no scleral icterus, external ears normal, moist mucous membranes Neck: Supple, full range of motion, no observable masses Lungs: No Respiratory distress, Lungs clear to auscultation bilaterally no rales, rhonchi, wheezing CV: Regular rate and rhythm, no murmur, no pitting edema to lower extremities bilaterally Abdomen: Soft, nondistended, nontender to palpation MSK: No joint swelling, FROM all 4 extremities Skin: Scattered skin lesions/wounds in various stages of healing to the upper and lower extremities, most notably to the left inner lower calf there is a ulceration with mild surrounding erythema, there is a more extensive approximately 6 x 6 cm of confluent more subtle erythema that does have tenderness to palpation, there is no underlying induration or fluctuance or palpable abscess formation, there is no distal pitting edema Neuro: Alert and oriented, no slurred speech, sensation and strength grossly intact all 4 extremities Psych: Appropriate for situation. Course Vital Signs: Vital signs: Vital Signs Temperature 98.1 F 10/28/24 10:33 Pulse Rate 75 10/28/24 13:02 Respiratory Rate 16 10/28/24 12:10 Blood Pressure 117/75 10/28/24 13:02 Pulse Oximetry 98 10/28/24 13:02 Oxygen Delivery Me thod Room Air 10/28/24 12:10 MDM - Skin/Abscess/Foreign Bdy Medicial Decision Making 54-year-old male history hypertension diabetes smoker and autoimmune disease presenting to emergency department with 1 to 2-day history of left lower extremity cellulitis overlying a more chronic ulceration/skin lesion of which he has multiple chronic examples of throughout his extremities, symptoms are entirely consistent with uncomplicated cellulitis without visible or palpable abscess formation, no concern for DVT, no systemic signs of sepsis or more severe infection, no crepitus or indication of the presence of necrotizing fasciitis, I did recommend doxycycline for adequate strep staph MRSA coverage however patient reports a significant intolerance to doxycycline with GI symptoms every time he takes it. He did request a trial of clindamycin, I discussed with him that clindamycin has a more narrow coverage for skin infections and may not be effective, he understands this. After shared decision making we came to a agreed-upon plan of care will he will trial clindamycin for the next 48 hours and if not experiencing any improvement we will switch to doxycycline with OTC GI prophylactic medications. He does understand that he would need to return to the ER if he develops fever or rapidly progressive erythema or pain. No radiology studies performed this visit Discharge Plan Discharge Patient Disposition: Home Clinical Impression: Cellulitis Qualifiers: Site of cellulitis: extremity Site of cellulitis of extremity: lower extremity Laterality: left Qualified Code(s): L03.116 - Cellulitis of left lower limb Condition: Stable Prescriptions: New clindamycin HCl [Cleocin HCl] 300 mg capsule 300 mg PO TID 10 Days Qty: 30 0RF doxycycline hyclate 100 mg capsule 100 mg PO BID 10 Days Qty: 20 0RF No Action hydroxyzine HCl 10 mg tablet 10 mg PO .q hs celecoxib [Celebrex] 200 mg capsule 200 mg PO BID Qty: 60 3RF tramadol 50 mg tablet 50 mg PO TID PRN (Reason: pain) 7 Days Qty: 21 0RF tramadol 50 mg tablet 50 mg PO TID PRN (Reason: pain) Qty: 60 1RF Enbrel SureClick 50 mg/mL (1 mL) pen injector 50 mg SUBCUT .Q7days Qty: 4 5RF cetirizine [Zyrtec] 10 mg Tablet 10 mg PO QAM pantoprazole [Protonix] 40 mg Tablet,Delayed Release (Dr/Ec) 40 mg PO DAILY glimepiride 4 mg Tablet 4 mg PO QAM lisinopril-hydrochlorothiazide 10-12.5 mg Tablet 1 tab PO QAM loratadine [Claritin] 10 mg tablet 10 mg PO BEDTIME mupirocin 2 % ointment 1 applic TOPICAL BID Ozempic 0.25 mg or 0.5 mg (2 mg/3 mL) pen injector 0.25 mg SUBCUT Q7D citalopram 40 mg tablet 40 mg PO 1XD Discharge Orders: Discharge ED (Routine); Ordered 10/28/24 Ordered By: Alexys Rosales Referrals: Amari oRsales MD [Primary Care Provider, Family Practice] Patient Instructions: Cellulitis (ED), Patient Portal & Suhail Instructions Activity Restrictions/Additional Instructions: You were seen for an infection in your left leg consistent with cellulitis, I have prescribed you antibiotics. Per our discussion, it is reasonable for you to trial the clindamycin which might be effective at relieving the symptoms given that you have an intolerance to doxycycline. However if your symptoms fail to start improving within 2 days, I recommend you switch to the prescribed doxycycline which has broader coverage for this type of infection and is more likely to be effective. If at any point you develop progressively worsening pain, rapidly accelerating rash, fever, or any other concerns I recommend you come back to the ER for wound evaluation and reassessment Print Language: Urdu Coding Level of Care Code ED Logging Crew Foreman for Olvin Bolivar
[2024-10-28 13:02] VITALS: BP 117/75; PULSE 75; O2SAT 98
== END 2024-10-28 13:04 | disposition home or self-care (01) ==
PROVIDERS: Emergency Provider Student in an Organized Health Care Education/Training Program; PCP Family Medicine
DX: L03.116 Cellulitis of left lower limb (principal); F17.210 Nicotine dependence, cigarettes, uncomplicated; E11.9 Type 2 diabetes mellitus without complications; I10 Essential (primary) hypertension
CPT/HCPCS: 99283

== ENCOUNTER → 2024-12-23 09:07 | Outpatient (BNVA) | payer OTHER, SELFPAY ==
[2024-04-09 10:26] VITALS: BP 174/90; BMI 36.3
== END ==
PROVIDERS: PCP Family Medicine; Visit Provider Internal Medicine Rheumatology
DX: M06.041 Rheumatoid arthritis without rheumatoid factor, right hand (principal); M06.042 Rheumatoid arthritis without rheumatoid factor, left hand; M35.00 Sjogren syndrome, unspecified; Z79.899 Other long term (current) drug therapy; Z71.85 Encounter for immunization safety counseling; R19.7 Diarrhea, unspecified
CPT/HCPCS: 99214

== ENCOUNTER 2024-12-27 10:19 | Emergency (ER) | payer MEDICAID, SELFPAY ==
[2024-04-09 10:26] VITALS: BP 174/90; BMI 36.3
--- NOTE | 2024-12-27 10:21 | XRR_ITS ---
PROCEDURE INFORMATION: Exam: XR Left Knee Exam date and time: 12/27/2024 10:37 AM Age: 54 years old Clinical indication: Pain; Knee; Left; Additional info: Injury TECHNIQUE: Imaging protocol: Radiologic exam of the left knee. Views: 3 views. COMPARISON: CR XR knee LT 3V* [id number] 07/15/2024 11:35 AM FINDINGS: Bones/joints: Three views were generated. There is minimal medial compartment joint space narrowing. Bones and joints are otherwise unremarkable. Soft tissues show some arguable prominence in the popliteal fossa, possibly reflecting a Sutton's cyst. They are otherwise unremarkable. No joint effusion is evident. Soft tissues: See Bones/joints finding. XR/XR knee LT 3V* [id number] IMPRESSION: 1. No sequela of acute trauma is identified. 2. Mild medial compartment joint space narrowing. 3. Possible Sutton's cyst.
[2024-12-27 10:25] VITALS: BP 153/78; PULSE 74; TEMP 36.5; O2SAT 97; BMI 38.2
--- OUTSIDE RECORDS SUMMARY | 2024-12-27 10:25 | XMS_ITS | Encounter Summary ---
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
--- OUTSIDE RECORDS SUMMARY | 2024-12-27 10:25 | XMS_ITS | Encounter Summary ---
Author Organization [facility] Address [address] [place] [address] Care Team Providers Care Tableau Lead Name Role Phone Amari Rosales MD Primary Care Provider [phone] Encounter Details Date Type Department Care Team (Latest Contact Info) Description 04/08/2001 Outpatient Historical [facility] General Surgery [address] [address] [address] [place] [address] [place] [address] [facility] [address] [place] [phone] POSTSURGICAL STATES NEC (Primary Dx) Social History Tobacco Use Types Packs/Day Years Used Date Smoking Tobacco: Never Assessed Sex and Gender Information Value Date Recorded Sex Assigned at Not on file 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
--- OUTSIDE RECORDS SUMMARY | 2024-12-27 10:25 | XMS_ITS | Patient Health Record ---
Author Organization [facility] Address [address] [place] [address] Care Team Providers Care Cold Press Operator Name Role Phone Leola Poe Primary Care [...] Date Status Comme nts Influenza (whole), CPT 70091 Inactive Unknown 04/02/2017 Administered Social History Social History Additional Details Category Social Info Options Details zzMigrated Social History Migrated Social History Smoking Status:Heavy tobacco smoker (finding) Plan Of Treatment No Information
--- OUTSIDE RECORDS SUMMARY | 2024-12-27 10:25 | XMS_ITS | Encounter Summary ---
Author Organization [facility] Address [address] [place] [address] Care Team Providers Care Die Cast Die Maker Name Role Phone Amari Rosales MD Primary Care Provider [phone] Encounter Details Date Type Department Care Team (Latest Contact Info) Description 03/25/2001 Outpatient Historical [facility] General Surgery [address] [place] [address] [address] [place] [id number] [place] [address] [facility] [address] [place] [address] [id number] OPEN WOUND OF HIP/THIGH (Primary Dx) Social History Tobacco Use Types Packs/Day Years Used Date Smoking Tobacco: Never Assessed Sex and Gender Information Value Date Recorded Sex Assigned at Not on file 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
--- OUTSIDE RECORDS SUMMARY | 2024-12-27 10:25 | XMS_ITS | Clinical Summary ---
Author Organization [facility] Address [address] [place] [address] Phone Care Team Providers Care Multigrapher Name Role Phone Amari Rosales MD Primary Care Provider [phone] Allergies Active Allergy Reactions Criticality Noted Date [...] 10 mg by mouth daily. Active cpap general medical practitioner [facility] VPAP-S @ IPAP 12 cwp, EPAP [...] download feature and mask fitting. 1 Each Active Active Problems No known active problems Encounters Date Type Department Care Team Description 12/25/2024 Orders Only [facility] Gastroenterology[address] [place] [address] Angela Sidhu FNP Generalized abdominal pain (Primary Dx) from Last 3 Months Immunizations Immunization Administration Dates Next Due (ADACEL/BOOSTRIX)(10 [...] on file Legal Sex Male 2:53 PM TUBE MILL OPERATOR Gender Identity Not on file Sexual Orientation Not on file Last Filed Vital Signs Vital Sign Reading Time Taken Comments Blood Pressure 139/81 01/10/2021 11:35 AM TUBE MILL OPERATOR Pulse 92 01/10/2021 11:35 AM TUBE MILL OPERATOR Temperature 36.8 C (98.2 F) 11/05/2019 9:30 AM CDT Respiratory Rate 21 11/05/2019 9:30 AM CDT Oxygen Saturation 97% 01/10/2021 11:35 AM TUBE MILL OPERATOR Inhaled Oxygen Concentration - - Weight 121.1 kg (267 lb) 01/10/2021 11:35 AM TUBE MILL OPERATOR Height 180.3 cm (5' 11 ) 01/10/2021 11:35 AM TUBE MILL OPERATOR Body Mass Index 37.24 01/10/2021 11:35 AM TUBE MILL OPERATOR Plan of Treatment Health Maintenance Due Date Last Done Comments HEPATITIS B VACCINES (1 of 3 - 19+ 3-dose series) 05/13 COLORECTAL SCREENING 2014 Colorectal Cancer Screening 2014 FIT-DNA Q 3 years 2014 FIT/FOBT Q 1 year 2014 Flex Sig/CT Colonography Q 5 years 2014 ZOSTER VACCINE (1 of 2) 06/03/2019 Preventative Visit- Commercial 02/12/2024 INFLUENZA VACCINE (#1) 2024 DTAP/TDAP/TD VACCINES (2 - Td or Tdap) 11/04/2029 Insurance [employer] EXCHANGE [id number] [id number] * Guarantor: [id number] Account Type Relation to Patient Date of Phone Billing Address Workers Comp Employer Care Teams Multigrapher Relationship Specialty Start Date End Date Amari Rosales MD [address] [place] [address] PCP - General Family Practice 01/10/21
--- OUTSIDE RECORDS SUMMARY | 2024-12-27 10:25 | XMS_ITS | Encounter Summary ---
Author Organization [facility] Address [address] [place] [address] Care Team Providers Care Multiple Sclerosis Nurse Name Role Phone Amari Rosales MD Primary Care Provider [phone] Encounter Details Date Type Department Care Team (Latest Contact Info) Description 01/16/1999 Outpatient Historical [facility] Arsenio Terry NO ADDRESS ON FILE Acute sinusitis, unspecified (Primary Dx); Pain in joint, shoulder region Social History Tobacco Use Types Packs/Day Years Used Date Smoking Tobacco: Never Assessed Sex and Gender Information Value Date Recorded Sex Assigned at Not on file 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
--- OUTSIDE RECORDS SUMMARY | 2024-12-27 10:25 | XMS_ITS | Encounter Summary ---
Author Organization [facility] Address [address] [place] [address] Care Team Providers Care Senior Software Systems Engineer Name Role Phone Amari Rosales MD Primary Care Provider [phone] Encounter Details Date Type Department Care Team (Latest Contact Info) Description 08/09/2003 Outpatient Historical [facility] Family Medicine [place] [address] [facility] [address] [place] [phone] Rafy Spann MD [address] [facility] [address] [place] [address] Contusion abdominal wall (Primary Dx); CONTUSION OF BACK; EXAM-MEDICOLEGAL REASONS Social History Tobacco Use Types Packs/Day Years Used Date Smoking Tobacco: Never Assessed Sex and Gender Information Value Date Recorded Sex Assigned at Not on file 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
--- OUTSIDE RECORDS SUMMARY | 2024-12-27 10:25 | XMS_ITS | Encounter Summary ---
Author Organization [facility] Address [address] [place] [address] Care Team Providers Care Endless Steamer Tender Name Role Phone Amari Rosales MD Primary Care Provider [phone] Encounter Details Date Type Department Care Team (Latest Contact Info) Description 04/16/2003 Outpatient Historical [facility] Family Medicine [place] [address] [facility] [address] [place] [phone] Rafy Spann MD [address] [facility] [address] [place] [address] SPRAIN OF BACK NOS (Primary Dx) Social History Tobacco Use Types Packs/Day Years Used Date Smoking Tobacco: Never Assessed Sex and Gender Information Value Date Recorded Sex Assigned at Not on file Legal Sex 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
--- OUTSIDE RECORDS SUMMARY | 2024-12-27 10:26 | XMS_ITS | Encounter Summary ---
Author Organization [facility] Address [address] [place] [address] Care Team Providers Care Lean Sensei Name Role Phone Amari Rosales MD Primary Care Provider [phone] Reason for Referral * Eval and Treat (Routine) - Open Specialty Diagnoses / Procedures Referred By Chuck umanzor Referred To Contact Gastroenterology Diagnoses Generalized abdominal pain Procedures VA OFFICE/OUTPATIENT ESTABLISHED MOD MDM 30 MIN VA OFFICE/OUTPATIENT NEW MODERATE MDM 45 MINUTES new request Angela Sidhu FNP [address] [place] [address] Phone: tel: fax: [facility] [address] [place] [address] [place] [phone] Phone: tel: fax: Referral ID Status Reason Start Date Expiration Date Visits Requested Visits Authorized [id number] Open Performing Department to Schedule 12/25/2024 12/25/2025 1 1 R Encounter Details Date Type Department Care Team (Late st Contact Info) Description 12/25/2024 Orders Only [facility] [address] [facility] [address] [place] [address] Angela Sidhu FNP [address] [place] [address] Generalized abdominal pain (Primary Dx) Social History Tobacco Use Types Packs/Day Years Used Date Smoking Tobacco: Former Cigarettes Q uit: 06/29/2020 Smokeless Tobacco: Never Alcohol Use Standard Drinks/Week Comments Never 0 (1 standard drink = 0.6 oz pur e alcohol) Sex and Gender Information Value Date Recorded Sex Assigned at Not on file Legal Sex Male 2:53 PM PAVER Gender Identity Not on file Sexual Orientation Not on file documented as of this encounter Plan of Treatment Scheduled Referrals Name Type Priority Associated Diagnoses Order Schedule AMB REFERRAL TO GASTROENTEROLOGY Outpatient Referral Routine Generalized abdominal pain Ordered: 12/25/2024 documented as of this encounter Visit Diagnoses Diagnosis Generalized abdominal pain- Primary Abdominal pain, generalized documented in this encounter Care Teams Lean Sensei Relationship Specialty Start Date End Date Amari Rosales MD [address] [address] PCP - General Family Practice 01/10/21 documented as of this encounter
--- OUTSIDE RECORDS SUMMARY | 2024-12-27 10:26 | XMS_ITS | Encounter Summary ---
Author Organization [facility] Address [address] [place] [address] Care Team Providers Care Chemist Assistant Name Role Phone Amari Rosales MD Primary Care Provider [phone] Encounter Details Date Type Department Care Team (Latest Contact Info) Description 03/25/2001 Outpatient Historical [facility] Family Medicine [address] [phone] Anuel Cruz, NO ADDRESS ON FILE EXAM-MEDICOLEGAL REASONS (Primary Dx) Social History Tobacco Use Types Packs/Day Years Used Date Smoking Tobacco: Never Assessed Sex and Gender Information Value Date Recorded Sex Assigned at Not on file 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
--- OUTSIDE RECORDS SUMMARY | 2024-12-27 10:26 | XMS_ITS | Data Portability ---
Author Organization [facility] [place], [facility] Address [address] [place] [phone] Assessment Encounter Date Assessment Date Assessment LastModified by Organization Details LastModified Time 12/24/2024 12/24/2024 Patient here today because he has been having troubles with diarrhea for the past 2 months. He reports it is watery. He has belly pain and cramping when he has to go. He reports at times he passes who foods like peas out in his stool. [email or web address] Not available 12/24/2024 14:27:29 Plan of Treatment Reminders Order Date Submit Date Provider Last Modified By Organization Details Last Modified Time Details Appointments RECHECK 15 2024 08:30A Lynne Rosales MD Not available Not available Not available Lab culture, stool 2024 025 [email or web address] [address] [place] [address], [phone], 12/24/2024 13:11:08 C diff toxin DNA, stool 2024 025 [email or web address] [facility]), [address] [place] [address], [phone], 12/24/2024 13:11:08 O&P (ova & parasites ), stool 2024 025 [email or web address] [facility] ([facility]), [address] [place] [address], [phone], 12/24/2024 13:11:08 hemoglobi n A1C/hemog lobin total, QN, blood 2024 025 [facility], [address], [place], [address], 03/10/2024 10:15:12 CMP, serum or plasma 2024 025 [facility], [address] [facility], [place], [address], 03/10/2024 10:50:39 Referral gastroent erologist referral [address] Gastroenterol [facility] , [address] [facility], [place], [address], 12/25/2024 10:54:30 dermatolo gist referral 2024 025 [facility], [address] [place], [address], 04/06/2024 11:10:24 Procedures None recorded. Surgeries None recorded. Imaging None recorded. Medication Orders Actos 30 mg tablet 2024 025 [facility] [place], [address] [place], [address], 09/07/2024 15:43:38 Patient TargetsNo targets recorded. Patient InstructionsNo instructions recorded. Reason for Referral Rheumatology Specialist Referral for L ocalized eruption of skin Referring Physician: Amari Rosales, Family Medicine, Encounter Date: 03/10/2024 Certified Endoscopy Technician Referral for Generalized abdominal pain Referring Physician: Angela Stock [facility], Encounter Date: 12/24/2024 Results Created Date Observation Date Name Description Value Unit Range Abnormal Flag Note LastModifiedBy Organization Detail LastModifiedTime 03/10/1903/10/2024 CMP (MALE ) glucose 263.0 mg/dL 60.0-9 9.0 high Not Available [facility] [address] [facility], [place], [address], 03/10/2024 10:50:39 03/10/19 25 03/10/2024 CMP (MALE ) BUN (blood urea nitrogen) 13.0 mg/dL 10.0-2 6.0 Not Available [facility] [address] [facility] [address] [address], [place], [address], 03/10/2024 10:50:39 03/10/19 25 03/10/2024 CMP (MALE ) creatinine (serum) 0.8 mg/dL 0.4-1. 5 Not Available [facility] [address] [facility] [address] [address], [place], [address], 03/10/2024 10:50:39 03/10/19 25 03/10/2024 CMP (MALE ) BUN/creatini ne ratio 16.25 ratio Not Available [facility] [address] [address], [place], [address], 03/10/2024 10:50:39 03/10/19 25 03/10/2024 CMP (MALE ) eGFR calculated 107.1 Not Available [facility] [address] [address], [place], [address], 03/10/2024 10:50:39 03/10/19 25 03/10/2024 CMP (MALE ) total protein 8.3 g/dL 6.0-8. 5 Not Available [facility] [address] [address], [place], [address], 03/10/2024 10:50:39 03/10/19 25 03/10/2024 CMP (MALE ) total bilirubin 0.6 mg/dL 0.2-1. 3 Not Available [facility] [address] [address], [place], [address], 03/10/2024 10:50:39 03/10/19 25 03/10/2024 CMP (MALE ) albumin 4.1 g/dL 3.5-5. 5 Not Available [facility] [address] [facility] [address], [place], [address], 03/10/2024 10:50:39 03/10/19 25 03/10/2024 CMP (MALE ) globulin 4.2 calc Not Available [facility] [address] [address], [place], [address], 03/10/2024 10:50:39 03/10/19 25 03/10/2024 CMP (MALE ) AST (SGOT) 63.0 U/L 0.0-46 .0 high Not Available [facility] [address] [address], [place], [address], 03/10/2024 10:50:39 03/10/19 25 03/10/2024 CMP (MALE ) altv (SGPT) 45.0 U/L 13.0-6 9.0 normal Not Available [facility] [address] [address], [place], [address], 03/10/2024 10:50:39 03/10/19 25 03/10/2024 CMP (MALE ) A/G ratio 1.0 ratio Not Available [facility] [address] [address], [place], [address], 03/10/2024 10:50:39 03/10/19 25 03/10/2024 CMP (MALE ) ALP phos 168.0 U/L 30.0-1 40.0 abnormal Not Available [facility] [address] [address], [place], [address], 03/10/2024 10:50:39 03/10/19 25 03/10/2024 CMP (MALE ) calcium 9.0 mg/dL 8.4-10 .5 Not Available [facility] [address] [facility] [address], [place], [address], 03/10/2024 10:50:39 03/10/19 25 03/10/2024 CMP (MALE ) sodium 136.0 mmol/ L 136.0- 145.0 Not Available [facility] [address] [facility] [address], [place], [address], 03/10/2024 10:50:39 03/10/19 25 03/10/2024 CMP (MALE ) potassium 4.0 mmol/ L 3.5-5. 1 Not Available [facility] [address] [facility] [address], [place], [address], 03/10/2024 10:50:39 03/10/19 25 03/10/2024 CMP (MALE ) chloride 102.0 mmol/ L 98.0-1 10.0 normal Not Available [facility] [address] [facility], [place], [address], 03/10/2024 10:50:39 03/10/19 25 03/10/2024 CMP (MALE ) C02 26.0 mmol/ L 22.0-3 1.0 Not Available [facility] [address] [facility] [address], [place], [address], 03/10/2024 10:50:39 03/10/19 25 03/10/2024 CMP (MALE ) anion gap 8.0 calc Not Available [facility] [address] [facility] [address], [place], [address], 03/10/2024 10:50:39 03/10/19 25 03/10/2024 CMP (MALE ) osmolality 289.5 calc Not Available [facility] [address] [facility] [address], [place], [address], 03/10/2024 10:50:39 03/10/19 25 03/10/2024 HBA1C hemaglobin A1C 8.7 4.2-6. 5 high Not Available [facility] [address] [facility] [address], [place], [address], 03/10/2024 10:15:12 08/27/19 25 08/26/2024 COLOG UARD cologuard result reportable NEGATI VE negati ve normal The Colog uard (TM) test was perfo rmed on this speci men. NEGAT GLADYS TEST RESUL T. A negat gladys Colog uard resul t indic ates a low likel ihood that a color ectal cance r (CRC) or advan jose a adeno ma (eddie omato us polyp s with more advan jose a pre-m align ant featu res) is prese nt. The chanc e that a perso n with a negat gladys Colog uard test has a color ectal cance r is less than 1 in 1500 (nega tive predi ctive value >99.9 %) or has an advan jose a adeno ma is less than 5.3% (nega tive predi ctive value 94.7% ). These data are based on a prosp ectiv e cross -sect ional study of 10,00 0 indiv idual s at [facility] risk for color ectal cance r who were scree collin with both Colog uard and colon oscop y. (Lonnie Ramirez. et al, N Engl J Med 2014; 370(1 4):12 86-12 97) The mars l value (refe rence range ) for this assay is negat gladys. COLOG UARD RE-SC RUT [place] RECOM MENDA TION: Perio dic color ectal cance r scregreg harris is an impor tant part of preve ntive healt hcare for asymp tomat ic indiv idual s at [facility] risk for color ectal cance r. Follo wing a negat gladys Colog uard resul t, the Ameri can Cance r Socie ty and U.S. Multi -Soci ety Task Force scree kimberly guide lines recom mend a Colog uard re-sc rut dorsey inter marina of 3 years . Refer ences : Lucia can Cance r Socie ty Guide line for Color ectal Cance r Scree kimberly: https ://odette w.can cer.o rg/ca ncer/ colon -rect al-ca ncer/ detec tion- diagn osis- stagi ng/ac s-rec ommen datio ns.ht ml.; Grover MITCHELL, Carlos HOLGUIN, Zion BARFIELD, Color ectal Cance r Scree kimberly: Recom menda tions for Physi cians and Patie nts from the U.S. Multi -Soci ety Task Force on Color ectal Cance r Scree kimberly , Jose hawthornente rolog y 2017; 112:1 016-1 030. TEST DESCR IPTIO N: [place] site algor ithmi c dale sis of stool DNA-b iomar kers with hemog lobin immun oassa y. Quant itati ve value s of indiv idual bioma rkers are not repor table and are not assoc iated with indiv idual bioma rker resul t refer ence range s. Colog uard is inten ded for color ectal cance r scree kimberly of adult s of eithe r sex, 45 years or older , who are at [facility] for color ectal cance r (CRC) . Colog uard has been appro enrique for use by the U.S. FDA. The perfo rmanc e of Colog uard was estab lishe d in a cross secti onal study of [facility] adult s aged 50-84 . Colog uard perfo rmanc e in patie nts ages 45 to 49 years was estim ated by sub-g roup dale sis of near- age group s. Colon oscop ies perfo rmed for a posit gladys resul t may find as the most clini anahy signi ficodalys t lesio n: color ectal cance r [4.0% ], advan jose a adeno ma (incl uding sessi le agustín arabella polyp s great er than or equal to 1cm diame ter) [20%] or non- advan jose a adeno ma [31%] ; or no color ectal neopl katy [45%] . These estim ates are deriv ed from a prosp ectiv e cross -sect ional scree kimberly study of ,00 0 [facility] ectal cance r who were scree collin with both Colog uard and colon oscop y. (Lonnie Lin et al, N Engl J Med 2014; 370(1 4):12 86-12 97.) Colog uard may produ ce a false negat gladys or false posit gladys resul t (no color ectal cance r or preca ncero us polyp prese nt at colon oscop y follo w up). A negat gladys Colog uard test resul t does not guara ntee the absen ce of CRC or advan jose a adeno ma (pre- cance r). The curre nt Colog uard scree kimberly inter marina is every 3 years . (Amer ican Cance r Socie ty and U.S. Multi -Soci ety Task Force ). Colog uard perfo rmanc e data in a 0 patie nt pivot al study using colon oscop y as the refer ence metho d can be acces sed at the [facility] locat ion: www.e xactl abs.c om/re marlee . Addit ional descr iptio n of the Colog uard test proce ss, warni ngs and preca ution s can be found at www.c cristian medinad.c om. Not Available [employer] [address], [place], [address], 09/02/2024 21:48:10 03/12/19 25 07/28/2020 polys omnog [place] No observ ation record ed. [email or web address] Not Available 2024 16:17:28 Result Notes None recorded. Problems Name Problem SNOMED Code Status Onset Date Resolution Date Notes Provider Name and Address Organization Details Recorded Time Gastroeso phageal reflux disease 183179417 Active 2021 GERD; 022 8:24AM by Jayshree Tamez, Office Visit; Promote d; acuity set as *; [facility] 18:07:42 Major depressiv e disorder 749150518 Active 2022 [facility] 18:07:42 Diabetes mellitus 47574096 Active 2022 JAYSHREE TAMEZRICHARD [facility] 18:07:42 Chronic back pain 130743178 Active 2022 JAYSHREE TAMEZ [facility] 18:07:42 Abscess of skin and/or subcutane ous tissue 25788355 Active 2022 [facility] 18:08:17 Chest pain 45062748 Active 2022 JAYSHREE TAMEZ [facility] 5 18:08:38 Disorder of connectiv e tissue 527343571 Active 2023 [facility] 18:07:41 Benign essential hypertens ion 6176734 Active 2023 [facility] 18:07:42 Male hypogonad ism 71934688 Active 2023 JAYSHREE TAMEZ [facility] 5 18:07:42 Open wound of toe of right foot [id number] 720195 Active 2023 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 18:07:42 Liver enzymes level above reference range 492265892 Active 2023 JAYSHREE JOI [facility] 18:07:42 Prurigo nodularis 83112976 Active 2023 JAYSHREE TAMEZ [facility] 18:08:26 Obstructi ve sleep apnea syndrome 18831194 Active 2024 JAYSHREE TAMEZ [facility] 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 18:07:42 Localized eruption of skin 874210691 Active 2024 [facility] TAMEZ [facility] 18:08:17 Dog bite of lower leg 709098032 Completed 202407/20/2024 LYLA SOTOMAYOR [facility] 09:31:25 Problem Notes None recorded. Procedures Surgical History Date Name Laterality Status Provider Name and Address Organization Details Recorded Time colonoscopy completed LORNA COX [address], [address], [facility] 09/03/2024 07:24:39 Imaging Results None recorded. Procedure Notes None recorded. Medical Equipment None Reported. Allergies Allergen ID Allergen Name Allergen Category Reaction Reaction Severity Criticality Documentation Date Start Date Code Code System Note Provider Name and Address Organization Details Recorded Time 3302 Bactrim medicatio n rash mild Not available 06/29/2022 12304 9 RxNorm ANGELA STOCK, [facility] [address] [place] [address], [phone], [facility] 14:26:16 46487 Substance with sulfonami de structure and antibacte rial mechanism of action (substanc e) medicatio n hives Not available high 12/24/20242020 21165 8003 SNOMED ANGELA STOCK, [employer] [facility] [facility] [address] [place], [phone], [facility], [place] 14:26:09 Medications Name Sig Start Date Stop Date Status Note LastModified by Organization Details LastModified Time BD Luer-Sharita Syringe 3 mL 23 x 1 FOR USE with testoste maggie active Not Available Not Available No t Available celecoxib 200 mg capsule take 1 capsule BY MOUTH TWICE DAILY active Not Available Not Available No t Available Unistik 2 Device kit as directed 2022 active RM/AV; Recorded 04/06/19 23 9:49AM by Lyla marrufo, Phone Encounalan r; Refill Quantity : 0; Not Available Not Available Not Available pilocarpi ne 5 mg tablet TAKE 1 TABLET BY MOUTH THREE TIMES DAILY active Not Available Not Available No t Available prednison e 10 mg tablet TAKE 1 TABLET BY MOUTH EVERY DAY FOR FIVE DAYS 12/31 completed Not Available Not Available Not Available doxycycli ne hyclate 100 mg capsule take 1 capsule BY MOUTH TWICE DAILY for 10 days 12/23 completed Not Available Not Available Not Available clindamyc in HCl 300 mg capsule take 1 capsule BY MOUTH THREE TIMES DAILY for 10 days 12/23 completed Not Available Not Available Not Available citalopra m 40 mg tablet TAKE 1 TABLET BY MOUTH EVERY DAY active Not Available Not Available No t Available hydrocodo ne 5 mg-acetam inophen 325 mg tablet TAKE 1 TO 2 TABLETS BY MOUTH EVERY 4 HOURS NEEDED FOR post op pain 03/08 completed Not Available Not Available Not Available Claritin 10 mg tablet daily active 0; Recorded 03/19/19 23 7:59AM by Deidre Camarillo RN, Office Visit; Not Available Not Available Not Available meloxicam 15 mg tablet TAKE 1 TABLET BY MOUTH EVERY DAY 07/11 completed Not Available Not Available Not Available prednison e 20 mg tablet TAKE 2 TABLETS BY MOUTH EVERY DAY FOR THREE DAYS 07/17 completed Not Available Not Available Not Available clobetaso l 0.05 % topical cream apply topicall y TO rash ON arms TWICE DAILY. no more THAN TWO weeks PER MONTH. not FOR face, groin or SKIN folds active Not Available Not Available No t Available leflunomi de 10 mg tablet TAKE 1 TABLET BY MOUTH DAILY 03/10 completed Not Available Not Available Not Available Zyrtec 10 mg tablet daily active 0; Recorded 03/19/19 23 7:59AM by Deidre Camarillo RN, Office Visit; Not Available Not Available Not Available tramadol 50 mg tablet TAKE 1 TABLET BY MOUTH THREE TIMES DAILY NEEDED FOR PAIN for 7 days active Not Available Not Available No t Available triamcino lone acetonide 0.1 % topical cream apply ONE applicat ion TWICE DAILY topical route active Not Available Not Available No t Available betametha sone acetate and sodium phos 6 mg/mL suspensio n for injection Take 9 mg every day by injectio n route for 1 day. 03/08 completed Not Available Not Available Not Available amoxicill in 875 mg tablet TAKE 1 TABLET BY MOUTH EVERY TWELVE HOURS for 7 days 01/16 completed Not Available Not Available Not Available cephalexi n 500 mg capsule take 1 capsule BY MOUTH THREE TIMES DAILY for 7 days 03/08 completed Not Available Not Available Not Available pantopraz ole 40 mg tablet,de layed release TAKE 1 TABLET BY MOUTH EVERY DAY active Not Available Not Available No t Available triamcino lone acetonide 0.1 % topical ointment APPLY TWICE DAILY TO AFFECTED AREAS OF ARMS AND LEGS USE FOR NO MORE THAN TWO WEEKS PER MONTH; NOT FOR FACE, SKIN FOLDS OR GROIN active Not Available Not Available No t Available glimepiri de 4 mg tablet TAKE 1 TABLET BY MOUTH EVERY DAY active Not Available Not Available No t Available betametha sone dipropion ate 0.05 % topical cream two times daily, as needed 12/31 completed Recorded 03/28/19 20 9:53AM by Maral Choen, Office Visit; Refill Quantity : 30; Gram; Not Available Not Available Not Available hydroxyzi ne HCl 25 mg tablet TAKE 1 TABLET BY MOUTH AT BEDTIME as needed for ITCHING; WILL CAUSE DROWSINE SS active Not Available Not Available No t Available mupirocin 2 % topical ointment APPLY TO OPEN AREAS TWICE DAILY NEEDED UNTIL HEALED active Not Available Not Available No t Available BD Multifit Reusable Syringe 10 mL every 2 weeks 12/04 completed 23 gauge 1 inch; Recorded 05/01/19 23 8:17AM by Amari Rosales MD, Refill Request; Refill Quantity : 2; Each; Not Available Not Available Not Available lisinopri l 10 mg-hydroc hlorothia zide 12.5 mg tablet TAKE 1 TABLET BY MOUTH EVERY DAY active Not Available Not Available No t Available testoster one cypionate 200 mg/mL intramusc ular oil inject ONE ML EVERY TWO weeks active Not Available Not Available No t Available BD Luer-Sharita Syringe 3 mL 22 gauge x 1 USE ONE syringe every TWO weeks as directed active Not Available Not Available No t Available pioglitaz one 30 mg tablet TAKE 1 TABLET BY MOUTH EVERY DAY active Not Available Not Available No t Available metformin ER 500 mg tablet,ex tended release 24 hr TAKE 4 TABLETS BY MOUTH EVERY DAY OR TWO TWICE DAILY 07/20 completed Not Available Not Available Not Available amoxicill in 500 mg-potass ium clavulana te 125 mg tablet TAKE 1 TABLET BY MOUTH TWICE DAILY 07/20 completed Not Available Not Available Not Available albuterol sulfate four times daily, as needed 12/04 completed may use whatever brand of albutero l insuranc e will allow.; Recorded 10/24/19 21 3:11PM by Chino Hernandez CMT, Office Visit; Refill Quantity : 1; Packet; Not Available Not Available Not Available testoster one cypionate every 2 weeks. 12/04 completed E29.1; Recorded 02/26/19 23 8:22AM by Amari Rosales MD, Refill Request; Refill Quantity : 2; Millilit er; Not Available Not Available Not Available clindamyc in HCl every six hours 12/04 completed Recorded 08/31/19 22 11:15AM by Amari Rosales MD, Office Visit; Refill Quantity : 30; Capsule; Not Available Not Available Not Available metformin daily 12/04 completed new dose. May take 1000mg ER 2 daily if availabl e or may take 2 bid. Needs 2000mg daily.; Recorded 06/29/19 2:27PM by Amari Rosales MD, Annotati on/Adden dum; Refill Quantity : 360; Tablet; Not Available Not Available Not Available varenicli ne tartrate 1 mg tablet TAKE 1 TABLET BY MOUTH TWICE DAILY 01/16 completed Not Available Not Available Not Available varenicli ne tartrate 0.5 mg tablet TAKE 1 TABLET BY MOUTH AT BEDTIME FOR TWO DAYS THEN ONE TWICE DAILY 07/17 completed Not Available Not Available Not Available Humira Pen 40 mg/0.8 mL subcutane ous kit inject ONE pen (40mg) UNDER THE SKIN every 14 DAYS active Not Available Not Available No t Available Enbrel SureClick 50 mg/mL (1 mL) subcutane ous pen injector inject ONE pen (50mg) UNDER THE SKIN every SEVEN DAYS active Not Available Not Available No t Available OneTouch Verio test strips USE TO test THREE TIMES DAILY active Not Available Not Available No t Available Invokana 100 mg tablet 07/17 completed Not Available Not Available Not Available Trulicity 1.5 mg/0.5 mL subcutane ous pen injector inject ONE pen UNDER THE SKIN weekly 06/29 completed Not Available Not Available Not Available Trulicity 0.75 mg/0.5 mL subcutane ous pen injector inject ONE pen every week 06/29 completed Not Available Not Available Not Available OneTouch Verio Flex Meter USE TO test THREE TIMES DAILY active Not Available Not Available No t Available OneTouch Delica Plus Lancet 30 gauge USE TO test THREE TIMES DAILY active Not Available Not Available No t Available Trulicity 3 mg/0.5 mL subcutane ous pen injector inject ONE pen SUBCUTAN EOUSLY every week AFTER FOUR weeks of 1.5mg 04/15 completed Not Available Not Available Not Available Ozempic 0.25 mg or 0.5 mg (2 mg/3 mL) subcutane ous pen injector inject 0.25mg SUBCUTAN EOUSLY every week FOR FOUR weeks THEN 0.5mg every week thereaft er active Not Available Not Available No t Available Vitals Date Recorded Body height Body mass index (BMI) Body weight Heart rate Systolic And Diastolic Provider Name and Address Organization Details Last Updated DateTime 03/10/2024 180.34 cm 36.1 kg/m2 709350.4 2 g 76 /min 142/90 mm[Hg] L[facility] 5 09:27:05 Date Recorded Body height Body mass index (BMI) Body weight Oxygen saturation Oxygen saturation in Arterial blood by Pulse oximetry Heart rate Systolic And Diastolic Provider Name and Address Organization Details Last Updated DateTime 5 180.34 cm 36.5 kg/m2 534254. 2 g 97 % 97 % 88 /min 144/90 mm[Hg] [facility] 5 16:17:30 Date Recorded Body height Body mass index (BMI) Body weight Heart rate Systolic And Diastolic Provider Name and Address Organization Details Last Updated DateTime 07/20/2024 180.34 cm 37 kg/m2 241619.9 8 g 80 /min 142/70 mm[Hg] [facility] 5 09:36:30 Date Recorded Body height Body mass index (BMI) Body weight Heart rate Oxygen saturation Oxygen saturation in Arterial blood by Pulse oximetry Respiratory rate Systolic And Diastolic Provider Name and Address Organization Details Last Updated DateTime 5 180.34 cm 38.2 kg/m2 278127. 31 g 82 /min 96 % 96 % 20 /min 128/72 mm[Hg] CHINO HERNANDEZ [facility] 5 12:39:37 Date Recorded Body height Body mass index (BMI) Body weight Oxygen saturation Oxygen saturation in Arterial blood by Pulse oximetry Heart rate Systolic And Diastolic Provider Name and Address Organization Details Last Updated DateTime 4 180.34 cm 35.3 kg/m2 118474. 87 g 94 % 94 % 71 /min 136/80 mm[Hg] [facility] 4 09:38:17 Social History Question Answer Notes LastModified by Organizat ion Details LastModified Time Tobacco Smoking Status Current Every Day Smoker JAYSHREE guerra [facility] 06/29/2022 14:13:13 What Was The Date Of Your Most Recent Tobacco Screening? 07/20/2024 [email or web address] Information not available 07/20/2024 Sex: Unknown Functional Status Question Answer Note LastModified by Organizat ion Details LastModified Time Do you use any illicit or recreational drugs? No [email or web address] Information not available 06/29/2022 What is your level of alcohol consumption? None [email or web address] Information not available 06/29/2022 Mental Status None recorded. Family History Nothing Reported Notes:Igor; HTN. DM., Heart attack, Completed Stroke, Heart disease in male family member before age 55, Heart disease in female family member before age 65, 1 Bro, 2 Sis; HTN. DM., Stroke, Edwar; CVA., Hypertension, Diabetes Mellitus, Seizure disorder, Kidney disease, Hypercholesterolemia, Alcohol Abuse, Arthritis, Migraine Headache, Diabete, Thyroid problems, Severe allergy Medical History Condition Response Coronary Artery Disease N Other N Gout N Kidney Stones N Blood Diseases Y Hyperthyroidism N Breast Cancer N Blood Transfusion N Hypothyroidism N Lung Disease N COPD N Depression Y Defects or Inherited Disease N Developmental or Behavioral Disorders N Breast Problem N Difficulty Swallowing N Anesthesia Complications N Anxiety Disorder N Meniere's disease N Muscle, Joint, or Bone Problems Y Vision or Eye Problems Y Arthritis Y Infertility N Polyps N Cancer N Stroke N Varicosities N Endometriosis N Bladder or Kidney Problems N High Cholesterol N Liver Disease Y Fibromyalgia N Headaches N Kidney Disease N Allergies/Hayfever N Heart Problems N Ear or Hearing Problems N Fatigue Y Hospitalizations N Thyroid Problems N GI Problems Y ADD/ADHD N Skin Problems Y Eating Disorder N Anemia N Constipation N Mental Illness N Ovarian Cancer N Diabetes Y Bedwetting N Seizures/Epilepsy N Tuberculosis N Pain Y Eczema N Diverticulitis N Abuse/Domestic Violence N Asthma N Reflux/GERD Y Hepatitis N Heart Disease N Pulmonary Embolism N Chronic Ear Infections N Pre-Eclampsia N Hypertension N Chicken Pox N Autism Spectrum Disorder (ASD) N Osteoporosis N Thrombophilias N Immunizations Vaccine Type Date Status Note Provider Nam e and Address Organization Details Recorded Time Tdap 11/05/2019 completed JAYSHREE guerra [facility] 06/29/2022 14:10:18 Rabies - IM fibroblast culture 04/15/2024 completed Not Available [facility] 12:17:38 Rabies - IM fibroblast culture 04/20/2024 completed Not Available [facility] 12:17:38 Rabies - IM fibroblast culture 04/23/2024 completed Not Available [facility] 12:17:38 Past Encounters Encounter ID Performer Location Encounter Start Date Encounter Closed Date Diagnosis/Indication Diagnosis SNOMED-CT Code Diagnosis ICD10 Code Diagnosis IMO Codes Diagnosis Note [id number] Amari Rosales MD [facility] ([facility]) [address] [place] [address] [id number] 5 06/29/2022 13:59:00 06/29/2022 14:39:04 Diabetes mellitus 17136909 E11.9 A1c pending today. Chronic back pain 635880 002 M54.03 plans surgery on back when A1c is below 8. Hopefully soon. Major depr essive disorder 346478118 F32.9 Essential hypertension 11084330 I10 [id number] MILADYS AKHTAR [facility] ([facility]) [address] [place] [address] [id number] 5 07/06/2022 09:45:39 07/06/2022 19:09:59 Allergic contact dermatitis 047635314 L23.9 Continue triamcinol one and prednisone . If not improving or seems to be worsening in the next 5-7 days, return for further evaluation . Pain of ri ght knee joint 4805739452 70536 M25.561 Reassured with negative exam today. Patient was given exercises to perform for knee stabilizat ion. Encouraged rest, ice, compressio n, and elevation. Can take tylenol and ibuprofen as needed for the pain. If not improving in 2 weeks, recommend following up with PCP. [id number] Huber Nelson MD [facility] ([facility]) [address] [place] [address] [id number] 5 07/11/2022 10:05:50 07/11/2022 12:58:16 Contact dermatitis caused by urushiol from [facility] 015804182 L25.5 [id number] Amari Rosales MD [facility] ([facility]) [address] [place] [address] [id number] 5 07/17/2022 09:30:58 07/17/2022 13:30:22 Type 2 diabetes mellitus 46553802 E11.9 Abscess of skin and/or subcutaneous tissue 33237178 L02.91 Minimal remaining infection. [id number] Amari Rosales MD [facility] ([facility]) [address] [place] [address] [id number] 5 09/07/2022 09:18:01 09/07/2022 10:46:09 Type 2 diabetes mellitus 09906280 E11.9 Major depr essive disorder 987859736 F32.9 Chronic back pain 193638 002 M54.03 Essential hypertension 78624502 I10 [id number] Amari Rosales MD [facility] ([facility]) [address] [place], [place] [phone] 12/04/2022 16:22:58 12/04/2022 19:00:58 Chest pain 24936989 R07.9 Strong family history of CAD. Smokes kamar 1ppd. Worse pain with exertion. [id number] Amari Rosales MD [facility] ([facility]) [address] [place] [address] [id number] 5 03/08/2023 09:04:10 03/08/2023 15:07:48 Diabetes mellitus 87620249 E11.40 Disorder o f connective tissue 557637731 M35.9 Benign ess ential hypertension 6123307 I10 Male hypogonadism 151954 06 E29.1 [id number] Kelvin Messer MD [facility] ([facility]) [address] [place] [address] [id number] 5 06/06/2023 10:51:53 06/06/2023 11:29:28 Open wound of toe of right foot [id number] 6371764 S91.101A Will and proceed with antibiotic s at this time. Discussed wound care with the patient. Follow-up with PCP next week for diabetes and wound recheck. [id number] Amari Rosales MD [facility] ([facility]) [address] [place] [address] [id number] 5 07/12/2023 09:32:18 07/12/2023 10:27:30 Benign essential hypertension 0495835 I10 Gastroesop hageal reflux disease 847884023 K21.9 K21.9 Chest pain 88954568 R07. 9 chest pain at rest with lying down. No pain with exertion. Smokes 3/4 ppd. Diabetes mellitus 099204 09 E11.40 recommende d diabetic eye exam. Male hypogonadism 360130 06 E29.1 [id number] YVAN RAMOS APRN [facility] ([facility]) [address] [place], [place] [phone] 10/19/2023 10:29:58 10/19/2023 12:05:39 Pain of left hip joint 9925285700 41296 M25.411 [id number] Amari Rosales MD [facility] ([facility]) [address] [place], [place] [phone] 5 10/25/2023 09:25:46 10/25/2023 13:22:20 Diabetes mellitus 66856900 E11.9 working on getting eye doctor. Uncontroll ed type 2 diabetes mellitus 583821869 E11.65 [id number] LALI CUEVAS [facility] ([facility]) [address] [place] [address] [id number] 5 01/01/2024 08:33:37 01/01/2024 09:34:40 Acute left otitis media 804366137 H66.92 Discussed use of antibiotic the full 7 days. May take tylenol/mo faiza for discomfort .Consider using Flonase or Nasonex nasal spray daily in addition to an otc decongesta nt.Return if you develop worsening pain, drainage from the ear or concerns arise. [id number] Amari Rosales MD [facility] ([facility]) [address] [place] [address] [phone] 5 01/17/2024 09:20:40 01/17/2024 11:19:56 Diabetes mellitus 59761102 E11.9 eye doctor appt. coming up. I will order labs through [facility] for when he gets his other labs done from Day[facility] louie. Seronegati ve rheumatoid arthritis 371297227 M06.00 Working with Dayanna graves on this. Liver enzy mes level above reference range 063074587 R74.01 followed by Rheumatflorinda graves and labs pending. 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 He requires a new BiPAP machine to continue to treat his severe sleep apnea as the Bipap has continued to improve his symptoms. Seronegati ve rheumatoid arthritis 188887690 M06.00 Working with Rheumatolo gist on this. Just started with Humira. 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 Benign ess ential hypertension 4341838 I10 Diabetes mellitus 598340 09 E11.9 eye doctor appt coming up. [id number] Amari Rosales MD [facility] ([facility]) [address] [place] [address] [id number] 5 04/15/2024 16:03:04 04/16/2024 15:28:49 Diabetes mellitus 98671463 E13.42 poor control. Recently started Ozempic and will start Actos as he is stopping Metformin. Prurigo nodularis 687313 00 L28.1 arms and legs. Possibly secondary to Metformin. Stopping that. Dog bite of lower leg 28 1260407 S81.851A no obvious need for treatment besides rabies vaccinatio n. He is referred to the ER to begin that. [id number] Amari Rosales MD [facility] ([facility]) [address] [place] [address] [id number] 5 07/20/2024 09:19:33 07/20/2024 12:12:31 Benign essential hypertension 0324765 I10 Seronegati ve rheumatoid arthritis 024803594 M06.00 Working with Rheumatolo gist on this. Just starting Enbrel soon. Major depr essive disorder 775716254 F32.9 Male hypogonadism 749301 06 E29.1 Diabetes mellitus 603665 09 E13.42 Will order an A1c to be done when he gets labs for Rheumatolo gy. [id number] LALI SANDOVAL [facility] ([facility]) [address] [place] [address] [phone] 5 12/24/2024 12:14:39 12/24/2024 13:58:44 Diarrhea 27567182 R19.7 07567354 Generalize d abdominal pain 609243965 R10.84 [id number] Patient reports he passes some food through whole. Health Concerns Section Related Observation LastModified by Organization Detai ls LastModified Time None Recorded Concern Status LastModified by Organization Details LastModified Time None Recorded Advance Directives Directive None Recorded Payers Insurance Date Sequence Insurance Name Policy Number Policy Chen Covered Member ID Chen Member ID Guarantor Name 12/23/2024 1 [facility] (MEDICAID REPLACEMENT - HMO) LEONARDO Lionel Knutson [id number] Lionel Knutson Notes Date Note Type Note Provider Name and Address Organization Details Recorded Time 4 text/html DiabetesReported by PatientHPIFor self care, patient reportsnot monitoring home glucose. For associated symptoms, patient reportsnumbness of feetbut reportsno increased thirst,no increased appetite, andno increased urination. For duration, patient reportschronic. For control, patient reportstreated with __ (trulicity and metformin and glimeperide.). For compliance, patient reportscompliant with medicationsandcompliant with follow-up visits. Hypertension IM/FMReported by PatientHPIFor quality, patient reportshere for check-up. For onset/timing, patient reportsgradual onset. For alleviating factors, patient reportsmedication. For associated symptoms, patient reportsno shortness of breath,no palpitations, andno chest pain. For risk factors, patient reportsdiabetes. Had some labs done at Rheumatology and was told to stop taking celebrex and leflunomide due to blood work being abnormal. Is going back in two weeks to have a recheck to see if he needs to resume those medications. Labs are being repeated in 2 weeks. He had a small drop in his platelet count and LFT's were slightly elevated. Amari Rosales MD [address] [place] [address], [phone], [facility] [place] 01/17/2024 10:33:07 5 text/html Sleep ProblemsReported by PatientSleep HPIFor insomnia, patient reportsgroggy upon awakening,unrefreshing sleep, andexcessive sleepiness during the day (daytime somnolence)but reportsnaps. For quality, patient reportsfrequent breathing through the mouthandloud snoring. For prescribed sleep medications, patient reportsnot taking medication to help sleep. Amari Rosales MD [address] [place] [address], [phone], [facility] 03/10/2024 10:01:55 5 text/html DiabetesReported by PatientHPIFor duration, patient reportschronic. For control, patient reportstreated with diet and oral medications. For self care, patient reportsmonitoring glucose weekly(recent sugar of 174.). For associated symptoms, patient reportsno increased thirst,no increased appetite, andno increased urination. CoughReported by PatientHPIFor associated symptoms, patient reportschest pain (chest tightnes.)but reportsno shortness of breath. For quality, patient reportsproductive. For severity, patient reportsmild. For duration, patient reportsintermittentandacute (<3 weeks). Sleep ProblemsReported by PatientSleep HPIFor insomnia, patient reportsawakening in the middle of the night. For restless legs syndrome, patient reportsjerking in sleep. For context, patient reportsprevious sleep study abnormal. For cpap, patient reportsuses cpap every night (bipap.). Would like to discuss his metformin, Rheumatology Specialist said that his rash is due to his Metformin. He is open to trying something different. Had a dog bite on a service call this AM, would like to discuss. Amari Rosales MD [address] [place] [address], [phone], [facility] 04/15/2024 17:13:59 5 text/html DiabetesReported by PatientHPIFor review finger sticks, patient reportsfastin. For compliance, patient reportscompliant with medicationsandcompliant with follow-up visits. For self care, patient reportsmonitoring glucose weekly. For associated symptoms, patient reportsno weight gain,no weight loss,no dizziness, andno headaches. Amari Rosales MD [address] [place], [phone], [facility] [place] 07/20/2024 10:32:13 5 text/html DiarrheaReported by PatientHPIFor quality, patient reportswatery. For associated symptoms, patient reportsabdominal pain. For severity, patient reportsmoderate. For duration, patient reportschronic (>1 month). For onset/timing, patient reportsintermittent. For context, patient reportsno one else with similar symptoms. LALI SANDOVAL [address] [place], [phone], [facility] [place] 12/24/2024 14:28:16
--- OUTSIDE RECORDS SUMMARY | 2024-12-27 10:26 | XMS_ITS | Encounter Summary ---
Author Organization [facility] Address [address] [place] [address] Care Team Providers Care Audio Visual Arts Director Name Role Phone Amari Rosales MD Primary Care Provider [phone] Encounter Details Date Type Department Care Team (Latest Contact Info) Description 09/12/1999 Outpatient Historical [facility] Arsenio Terry NO ADDRESS ON FILE Contusion of foot (Primary Dx) Social History Tobacco Use Types Packs/Day Years Used Date Smoking Tobacco: Never Assessed Sex and Gender Information Value Date Recorded Sex Assigned at Not on file Legal Sex Male 4:23 AM [employer] Gender Identity Not on file Sexual Orientation Not on file documented as of this encounter Plan of Treatment Not on file documented as of this encounter Visit Diagnoses Diagnosis Contusion of foot- Primary documented in this encounter Care Teams Audio Visual Arts Director Relationship Specialty Start Date End Date Amari Rosales MD [address] [place] [id number] PCP - General Family Practice 11/05/19 documented as of this encounter
--- OUTSIDE RECORDS SUMMARY | 2024-12-27 10:26 | XMS_ITS | Encounter Summary ---
Author Organization [facility] Address [address] [place] [address] Care Team Providers Care Follow Up Specialist Name Role Phone Amari Rosales MD Primary Care Provider [phone] Encounter Details Date Type Department Care Team (Latest Contact Info) Description 09/08/1999 Outpatient Historical [facility] Arsenio Terry NO ADDRESS ON FILE Dermatitis due to plant (Primary Dx) Social History Tobacco Use Types Packs/Day Years Used Date Smoking Tobacco: Never Assessed Sex and Gender Information Value Date Recorded Sex Assigned at Not on file Legal Sex Male 4:23 AM [employer] Gender Identity Not on file Sexual Orientation Not on file documented as of this encounter Plan of Treatment Not on file documented as of this encounter Visit Diagnoses Diagnosis Dermatitis due to plant- Primary Contact dermatitis and other eczema due to plants (except food) documented in this encounter Care Teams Follow Up Specialist Relationship Specialty Start Date End Date Amari Rosales MD [address] [place] [id number] PCP - General Family Practice 11/05/19 documented as of this encounter
--- OUTSIDE RECORDS SUMMARY | 2024-12-27 10:27 | XMS_ITS | Continuity of Care Document ---
Author Organization [facility] Zack, [place], [facility] ([facility]) Address [address] [place] [address] Assessment Encounter Date Assessment Date Assessment LastModified [...] available Lab culture, stool 2024 025 [email or web address] [facility] ([facility]), [address] [place] [address], [phone], 12/24/2024 13:11:08 C diff toxin DNA, stool 2024 025 [email or web address] [facility] ([facility]), [address] [place] [address], [phone], 12/24/2024 13:11:08 O&P (ova & parasites ), stool 2024 025 [email or web address] [facility] ([facility]), [address] [place] [address], [phone], 12/24/2024 13:11:08 Referral gastroent erologist referral 2024 025 [email or web address] [facility] , [address] [facility], [place], [address], 12/25/2024 10:54:30 Procedures None recorded. Surgeries None recorded. Imaging None recorded. Medication Orders None recorded. Patient TargetsNo targets recorded. Patient InstructionsNo instructions recorded. Reason for Referral News Commentator Referral for Generalized abdominal pain Referring Physician: Angela Stock, Family Medicine, Encounter Date: 12/24/2024 Problems Name Problem SNOMED Code Status Onset Date Resolution Date Notes Provider Name and Address Organization Details Recorded Time Gastroeso phageal reflux disease 366671645 Active 2021 GERD; 022 8:24AM by Jayshree Virk, Office Visit; Promote d; acuity set as *; JAYSHREE guerra [facility] 18:07:42 Major depressiv e disorder 520635075 Active 2022 JAYSHREE guerra [facility] 18:07:42 Diabetes mellitus 82390407 Active 2022 JAYSHREE guerra [facility] 18:07:42 Chronic back pain 078741472 Active 2022 JAYSHREE guerra [facility] 5 18:07:42 Abscess of skin and/or subcutane ous tissue 23480067 Active 2022 JAYSHREE guerra [facility] 5 18:08:17 Chest pain 43017755 Active 2022 JAYSHREE guerra [facility] 5 18:08:38 Disorder of connectiv e tissue 811010498 Active 2023 JAYSHREE VIRK [facility] 18:07:41 Benign essential hypertens ion 3083269 Active 2023 JAYSHREE GAMEZRIS [facility] 18:07:42 Male hypogonad ism 56629591 Active 2023 JAYSHREE VIRK [facility] 18:07:42 Open wound of toe of right foot 35387251172 419851 Active 2023 JAYSHREE VIRK [facility] 18:08:16 Seronegat jodi rheumatoi d arthritis 567249758 Active 2023 JAYSHREE VIRK [facility] 18:07:42 Liver enzymes level above reference range 103317642 Active 2023 JAYSHREE VIRK [facility] 18:07:42 Prurigo nodularis 00449821 Active 2023 JAYSHREE VIRK [facility] 18:08:26 Obstructi ve sleep apnea syndrome 41623659 Active 2024 JAYSHREE VIRK [facility] 18:07:42 Sj gren's syndrome 02170320 Active 2024 JAYSHREE VIRK [facility] 18:07:42 Localized eruption of skin 840442321 Active 2024 JAYSHREE GAMEZRIS [facility] 18:08:17 Dog bite of lower leg 788130611 Completed 202407/20/2024 LYLA guerra, [facility] 5 09:31:25 Problem Notes None recorded. Procedures Surgical History Date Name Laterality Status Provider Name and Address Organization Details Recorded Time 5 colonoscopy completed LORNA COX, [facility] [address] [place], [address], [facility]iferCJennifer 09/03/2024 07:24:39 Imaging Results None recorded. Procedure Notes None recorded. Medical Equipment None Reported. Allergies Allergen ID Allergen Name Allergen Category Reaction Reaction Severity Criticality Documentation Date Start Date Code Code System Note Provider Name and Address Organization Details Recorded Time 3302 Bactrim medicatio n rash mild Not available 06/29/2022 52065 9 RxNorm ANGELA STOCK, [facility] [address] [place] [address], [phone], [facility], L.L.CJennifer 5 14:26:16 38092 Substance with sulfonami de structure and antibacte rial mechanism of action (substanc e) medicatio n hives Not available high 12/24/20242020 72008 8003 SNOMED ANGELA STOCK, [address], [phone], [facility] 5 14:26:09 Medications Name Sig Start Date Stop Date Status Note LastModified by Organization Details LastModified Time BD Luer-Sharita Syringe 3 mL 23 x 1 FOR USE with testcisco serrano active Not Available Not Available No t Available celecoxib 200 mg capsule take 1 capsule BY MOUTH TWICE DAILY active Not Available Not Available No t Available Unistik 2 Device kit as directed 2022 active RM/AV; Recorded 04/06/19 9:49AM by Lyla marrufo, Phone Encounte r; Refill Quantity : 0; Not Available [...] completed Recorded 03/28/19 20 9:53AM by Maral Cohen, Office Visit; Refill Quantity : 30; Gram; [...] l insuranc e will allow.; Recorded 10/24/19 3:11PM by Chino Hernandez CMT, Office Visit; Refill Quantity : 1; Packet; Not Available Not Available Not Available testoster one cypionate every 2 weeks. 12/04 completed E29.1; Recorded 02/26/19 23 8:22AM by Amari Rosales MD, Refill Request; Refill Quantity : 2; Millilit er; Not Available Not Available Not Available clindamyc in HCl every six hours 12/04 completed Recorded 08/31/19 11:15AM by Amari Rosales MD, Office Visit; [...] and Address Organization Details Last Updated DateTime 180.34 cm 38.2 kg/m2 242357. 31 g 82 /min 96 % 96 % 20 /min 128/72 mm[Hg] CHINO HERNANDEZ [facility] 12:39:37 Social History Question Answer Notes LastModified by [employer] Details LastModified Time Tobacco Smoking Status Current Every Day Smoker JAYSHREE guerra [facility] 06/29/2022 14:13:13 What Was The Date Of Your Most Recent Tobacco Screening? 07/20/2024 [email or web address] Information not available 07/20/2024 Sex: Unknown Functional Status Question Answer Note LastModified by [employer] Details LastModified Time Do you use any illicit or recreational drugs? No Information not available 06/29/2022 What is your level of alcohol consumption? None [email or web address] Information not available 06/29/2022 Mental Status None [...] Cancer N Blood Transfusion N Hypothyroidism N Depression Y COPD N Lung Disease N Defects or Inherited Disease N Developmental or Behavioral Disorders N Breast Problem N Difficulty Swallowing N Anesthesia Complications N Meniere's disease N Anxiety Disorder N Muscle, Joint, or Bone Problems Y Vision or Eye Problems Y Arthritis Y Polyps N Infertility N Cancer N Varicosities N Stroke N Endometriosis N Bladder or Kidney Problems N High Cholesterol N Liver Disease Y Headaches N Fibromyalgia N Kidney Disease N Allergies/Hayfever N Heart [...] Recorded Time Tdap 11/05/2019 completed [facility]SHREE guerra [facility] 06/29/2022 14:10:18 Rabies - IM fibroblast culture 04/15/2024 completed Not Available [facility] 12:17:38 Rabies - IM fibroblast culture 04/20/2024 completed Not Available [facility] 12:17:38 Rabies - IM fibroblast culture 04/23/2024 completed Not Available [facility] 12:17:38 Past Encounters Encounter ID Performer Location Encounter Start Date Encounter Closed Date Diagnosis/Indication Diagnosis SNOMED-CT Code Diagnosis ICD10 Code Diagnosis IMO Codes Diagnosis Note [id number] LALI SANDOVAL [facility] ([facility]) [address] [place] [address] 12/24/2024 12:14:39 12/24/2024 13:58:44 Diarrhea 97699053 R19.7 79916842 Generalize d abdominal pain 877586353 R10.84 810352 Patient reports he passes some food through whole. Health Concerns Section Related Observation LastModified by Organization Detai ls LastModified Time None Recorded Concern Status LastModified by Organization Details LastModified Time None Recorded Payers Encounter Date Sequence Insurance Name Policy Number Policy Chen Covered Member ID Chen Member ID Guarantor Name 12/24/2024 1 [facility] ([place] REPLACEMENT - [place]MO) LEONARDO Knutson [id number] Lionel Knutson Notes Date Note Type Note Provider Name and Address Organization Details Recorded Time 12/24/2024 text/html DiarrheaReported by PatientHPIFor quality, patient reportswatery. For associated symptoms, patient reportsabdominal pain. For severity, patient reportsmoderate. For duration, patient reportschronic (>1 month). For onset/timing, patient reportsintermittent. For context, patient reportsno one else with similar symptoms. ANGELA STOCK, [facility] [address] [place], [address], [facility] 12/24/2024 14:28:16
--- OUTSIDE RECORDS SUMMARY | 2024-12-27 10:27 | XMS_ITS | Encounter Summary ---
Author Organization [facility] Address [address] [place] [address] Care Team Providers Care Floor Cleaner Name Role Phone Amari Rosales MD Primary Care Provider [phone] Encounter Details Date Type Department Care Team (Latest Contact Info) Description 08/10/2003 Outpatient Historical [facility] [place] [facility] [address] [phone] Katarzyna Starks MD NO ADDRESS ON FILE ABDOMINAL PAIN RUQ (Primary Dx); ABDOMINAL PAIN RLQ Social History Tobacco Use Types Packs/Day Years Used Date Smoking Tobacco: Never Assessed Sex and Gender Information Value Date Recorded Sex Assigned at Not on file 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
--- OUTSIDE RECORDS SUMMARY | 2024-12-27 10:27 | XMS_ITS | Encounter Summary ---
Author Organization [facility] Address [address] [place] [address] Care Team Providers Care Pattern Chain Maker Supervisor Name Role Phone Amari Rosales MD Primary Care Provider [phone] Encounter Details Date Type Department Care Team (Latest Contact Info) Description 08/10/2003 Outpatient Historical [facility] General Surgery [address] [address] [address] [place] [address] [place] [address] [facility] [address] [place] [id number] OTHER INJURY OF ABDOMEN (Primary Dx) Social History Tobacco Use Types Packs/Day Years Used Date Smoking Tobacco: Never Assessed Sex and Gender Information Value Date Recorded Sex Assigned at Not on file 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
--- OUTSIDE RECORDS SUMMARY | 2024-12-27 10:27 | XMS_ITS | Patient Health Record ---
Author Organization [facility] Address [address] [place] [address] Care Team Providers Care Mini Bar Attendant Name Role Phone Fransisco Starr Primary Care Provider Reason For Referral No Information Problems No Known Problems Plan Of Treatment No Information Insurance Providers Payer Name Payer Address Payer Phone Subscriber Number Group Number Insured Name Patient Relationship to Insured Coverage Start Date Coverage End Date National Med Test [address] [facility] [place] [id number] [phone] Lionel Knutson Self - patient is the insured
--- OUTSIDE RECORDS SUMMARY | 2024-12-27 10:27 | XMS_ITS | Clinical Summary ---
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
--- NOTE | 2024-12-27 10:31 | W.ED.LOWEXIN ---
HPI - Extremity Injury (Lower) General: Chief Complaint: Extremity Injury, Lower Stated Complaint: lt knee inj Time Seen by Provider: 12/27/24 10:21 Source: patient Mode of arrival: ambulatory Limitations: no limitations History of Present Illness: 54-year-old male history of arthritis along with rheumatoid arthritis states that he has been working on the [employer] and has been up and down a lot and over the last 3 days he been having increasing left knee pain. He denies any specific injuries but states the pain is worse and especially with movement and when he tries to walk on it it is improved with rest he rates pain a 6 out of 10 currently. Denies any fevers Related Data Home Medications ?Medication ?Instructions ?Recorded ?Confirmed loratadine 10 mg tablet (Claritin) 10 mg PO BEDTIME 05/26/19 12/23/24 cetirizine 10 mg tablet (Zyrtec) 10 mg PO QAM 10/10/20 12/23/24 glimepiride 4 mg tablet 4 mg PO QAM 10/10/20 12/23/24 lisinopril 10 1 tab PO QAM 10/10/20 12/23/24 mg-hydrochlorothiazide 12.5 mg tablet pantoprazole 40 mg tablet,delayed 40 mg PO DAILY 10/10/20 12/23/24 release (Protonix) citalopram 40 mg tablet 40 mg PO 1XD 06/14/21 12/23/24 hydroxyzine HCl 10 mg tablet 10 mg PO .q hs 04/07/24 12/23/24 mupirocin 2 % topical ointment 1 applic topical BID 04/15/24 12/23/24 semaglutide 0.25 mg or 0.5 mg (2 0.25 mg SUBCUT Q7D 04/15/24 12/23/24 mg/3 mL) subcutaneous pen injector (Ozempic) Previous Rx's ?Medication ?Instructions ?Recorded tramadol 50 mg tablet 50 mg PO TID PRN pain #60 tabs 07/15/24 tramadol 50 mg tablet 50 mg PO TID PRN pain 7 days #21 07/15/24 tabs etanercept 50 mg/mL (1 mL) 50 mg SUBCUT .Q7days #4 mL 10/09/24 subcutaneous pen injector (Enbreant Morales) Held on 12/23/24. Instructions: Doctor's Order celecoxib 200 mg capsule (Celebrex) 200 mg PO BID #60 caps 11/02/24 Allergies Allergy/AdvReac Type Severity Reaction Status Date / Time Sulfa (Sulfonamide Allergy rash Verified 12/27/24 10:34 Antibiotics) Review of Systems Musc: Reports: extremity pain PFSH ED PFSH: Medical History Post traumatic stress disorder (PTSD) Major depressive disorder, single episode, moderate with anxious distress Tobacco use disorder, severe, dependence Psychiatric care Seasonal allergies GERD (gastroesophageal reflux disease) Joint pain Immunization counseling High risk medication use Primary Sjogren's syndrome Seronegative rheumatoid arthritis of both hands Tobacco dependence Severe sleep apnea Hypertension Diabetes Surgical History History of back surgery Trigger finger, right ring finger Trigger finger, right index finger Carpal tunnel syndrome, left Family History Other Bipolar disorder Brain cancer Diabetes Heart disease Hypertension Lung cancer Schizophrenia Seizure disorder Skin cancer Denies family history of Clotting disorder Anesthesia complication Bleeding disorder Social History Smoking and tobacco/nicotine status: current every day tobacco/nicotine user (1.5 packs per day - smoker for 48 yrs. ) cigarettes Packs smoked per day: 1.5 Years cigarettes smoked: 48 Quit status (tobacco/nicotine): not considering quitting Second hand smoke exposure: Yes Alcohol intake: never Substance/Drug Use: never Adopted: No Caregiver/support person: No Lives independently: Yes Household members: spouse Housing: Manufactured/Mobile home Marital status: Number of children: 1 Number of grandchildren: 2 Highest education level completed: GED or Equivalent service: No Current occupational status: other Current occupation: trying to get disability Pets and animals: Yes Pets & animals: cat(s) and dog(s) Leisure activites: games Current gender identity: Male 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 Special elena needs: No Agree to transfusion: Yes Physical Exam Const: COMMON NORMALS: no acute distress, patient oriented x3 and healthy appearing HENMT: COMMON NORMALS: normocephalic and atraumatic HEAD & SCALP: normocephalic and atraumatic Eye: COMMON NORMALS: Equal, round and reactive pupils present and EOMs intact bilaterally PUPIL: Yes Equal, round and reactive pupils present Neck/C-Spine: COMMON NORMALS: full ROM and supple Chest: COMMONS NORMALS: normal inspection of the chest and normal palpation of entire chest wall Resp: COMMON NORMALS: normal respiratory effort, No retractions, No use of accessory muscles and clear to auscultation bilaterally AUSCULTATION: clear to auscultation bilaterally Cardio: COMMON NORMALS: regular rate, regular rhythm and No murmurs present (Cardio) RATE: regular rate RHYTHM: regular rhythm GI: COMMON NORMALS: Normal to inspection, nondistended, normoactive bowel sounds present, Soft to palpation, non-tender and no masses PALPATION: Yes Soft to palpation Extremity: COMMON NORMALS: normal to inspection and full ROM Neuro: COMMON NORMALS: patient oriented x3, moves all extremities and no focal motor deficits Psych: COMMON NORMALS: mental status grossly normal, Normal thought process present and cooperative THOUGHT PROCESS: Normal thought process present Skin: COMMON NORMALS: no rashes or lesions noted and no wounds GENERAL SKIN EXAM: no rashes or lesions noted Course Vital Signs: Vital signs: Vital Signs Temperature 97.7 F 12/27/24 10:25 Pulse Rate 74 12/27/24 10:25 Blood Pressure 153/78 12/27/24 10:25 Pulse Oximetry 97 12/27/24 10:25 Oxygen Delivery Me thod Room Air 12/27/24 10:25 MDM - Extremity Injury (Lower) Medical Decision Making Patient presents here with left knee pain differential includes arthralgia, fracture, septic joint. Did interpret his x-ray left knee myself showed no acute abnormalities no fracture. Exam here shows no signs of a septic joint. Likely has arthritis flare due to increased activity. He is to rest ice compress and elevate. I did go over his x-ray findings with him he understands agrees to plan. Medical Records I reviewed the patient's medical records. XR interpretation done by ED provider, pending radiology final review ED provider radiology interpretation(s): xr l knee: no acute abnormality Discharge Plan Discharge Patient Disposition: Home Clinical Impression: Arthralgia of knee, left Condition: Stable Prescriptions: No Action hydroxyzine HCl 10 mg tablet 10 mg PO .q hs tramadol 50 mg tablet 50 mg PO TID PRN (Reason: pain) 7 Days Qty: 21 0RF tramadol 50 mg tablet 50 mg PO TID PRN (Reason: pain) Qty: 60 1RF Enbrel SureClick 50 mg/mL (1 mL) pen injector 50 mg SUBCUT .Q7days Qty: 4 5RF celecoxib [Celebrex] 200 mg capsule 200 mg PO BID Qty: 60 3RF cetirizine [Zyrtec] 10 mg Tablet 10 mg PO QAM pantoprazole [Protonix] 40 mg Tablet,Delayed Release (Dr/Ec) 40 mg PO DAILY glimepiride 4 mg Tablet 4 mg PO QAM lisinopril-hydrochlorothiazide 10-12.5 mg Tablet 1 tab PO QAM loratadine [Claritin] 10 mg tablet 10 mg PO BEDTIME mupirocin 2 % ointment 1 applic TOPICAL BID Ozempic 0.25 mg or 0.5 mg (2 mg/3 mL) pen injector 0.25 mg SUBCUT Q7D citalopram 40 mg tablet 40 mg PO 1XD Discharge Orders: Discharge ED (Routine); Ordered 12/27/24 Ordered By: Cathryn Lucia Referrals: Amari Rosales MD [Primary Care Provider, Family Practice] - 4-7 days Discharge Diet: Advance as tolerated Discharge Activity: Increase activity as tolerated Patient Instructions: Knee Pain (ED), Arthralgia (ED) Print Language: Divehi Coding Level of Care Code ED Histotechnologist Supervisor for Olvin Bolivar
[2024-12-27] MEDS: HYDROcodone-acetaminophen 5-325 mg Tablet 1 TAB PO (10:41)
[2024-12-27 11:11] VITALS: BP 139/77; PULSE 74; O2SAT 94
== END 2024-12-27 11:11 | disposition home or self-care (01) ==
PROVIDERS: Emergency Provider Emergency Medicine; PCP Family Medicine
DX: M25.562 Pain in left knee (principal); F17.210 Nicotine dependence, cigarettes, uncomplicated; E11.9 Type 2 diabetes mellitus without complications; I10 Essential (primary) hypertension
CPT/HCPCS: 73562; 99283; J9999